=== PATIENT | male | born 1970 | race Caucasian/White ===

== ENCOUNTER → 2018-01-01 | Outpatient (CLI) | payer BC ==
--- NOTE | 2018-01-01 08:53 | US ---
EXAMINATION TYPE: US kidneys/renal and bladder DATE OF EXAM: 01/01/2018 COMPARISON: NONE CLINICAL HISTORY: I10 HTN,N183 CHR KIDNEY DISEASE,Q612 POLYCYSTIC KIDNEY. EXAM MEASUREMENTS: Right Kidney: 20.2 x 12.0 x 12.8 cm Left Kidney: 21.6 x 11.7 x 12.1 cm Right Kidney: polycystic kidney, enlarged . A single image (image 3) there is a questionable solid a ppearing mass measuring 3.8 x 3.3 cm seen on this single image only. CT is recommended for further ch aracterization. Left Kidney: polycystic kidney, enlarged Bladder: not well distended Bilateral Jets seen: only right jet seen There is no evidence for hydronephrosis at this point in time. No nephrolithiasis is seen. The urina ry bladder is anechoic. The prostate gland is incidentally noted to be enlarged measuring 5.1 cm in t ransverse dimension. IMPRESSION: 1. Questionable 3.8 cm solid right renal mass seen on a single image only. Abdominal CT is recommende d for further characterization. 2. Findings compatible with polycystic kidney disease without gross hydronephrosis. 3. Suboptimal evaluation of the incompletely distended urinary bladder. 4. Incidental note of an enlarged prostate gland.
== END | disposition home or self-care (01) ==
LOC: RADUSWWP 08:10
PROVIDERS: ATTEND Family Medicine
DX: N32.89 Other specified disorders of bladder (principal); N40.0 Benign prostatic hyperplasia without lower urinary tract symptoms; I12.9 Hypertensive chronic kidney disease with stage 1 through stage 4 chronic kidney disease, or unspecified chronic kidney disease; N18.3 Chronic kidney disease, stage 3 (moderate)
CPT/HCPCS: 76770

== ENCOUNTER → 2018-06-25 | Outpatient (CLI) | payer BC ==
--- NOTE | 2018-06-25 13:41 | US ---
EXAMINATION TYPE: US abdomen comp/pelvis limited DATE OF EXAM: 06/25/2018 COMPARISON: NONE CLINICAL HISTORY: R19.04 Left lower quadrant abdominal swelling.... Patient states h/o polycystic kid lola disease, known hernia near umbilicus, no other symptoms EXAM MEASUREMENTS: Liver Length: 18.6 cm Gallbladder Wall: 0.3 cm CBD: 0.3 cm Spleen: 13.3 cm Right Kidney: 23.5 x 11.7 x 12.3 cm Left Kidney: 23.3 x 11.8 x 11.5 cm Pancreas: not seen due to bowel gas Liver: intercostal imaging due to enlarged renal displacing liver high in ribcage, slightly enlarged , cystic areas seen, largest = 1.4cm in right posterior lobe Gallbladder: wnl CBD: wnl Spleen: enlarged Right Kidney: grossly enlarged with multiple cystic areas seen, measured solid appearing lesion that was noted previously on superior pole = 3.4cm, stable Left Kidney: grossly enlarged with multiple cystic areas seen. No appreciable renal tissue present. Upper IVC: wnl Abd Aorta: limited views appear wnl Bladder: wnl Bilateral Jets Seen yes Scanned supraumbilical region at palpable and previous site of hernia per patient: small defect withi n abdominal sheath appears to produce a 1.7cm protrusion that did not enlarge with valsalva. Possible fat containing hernia. Patient is no pain at site and states he has had this area for 1 year. IMPRESSION: There may be a subtle supraumbilical anterior abdominal wall hernia, CT scan could be con firmatory.
== END | disposition home or self-care (01) ==
LOC: RADUSWWP 06:55
PROVIDERS: ATTEND Family Medicine
DX: Q61.2 Polycystic kidney, adult type (principal); N18.3 Chronic kidney disease, stage 3 (moderate)
CPT/HCPCS: 76700; 76857

== ENCOUNTER 2018-09-09 02:54 | Inpatient (IN) | payer BC ==
[2018-09-09] MEDS ORDERED: MORPHINE SULFATE 4 MG/ML SYRINGE IV STA (03:28)
[2018-09-09] MEDS ORDERED: SODIUM CHLORIDE 0.9% 1,000 ML IV STA (03:28)
--- NOTE | 2018-09-09 03:31 | ED ---
General Adult HPI - General Chief complaint: Abdominal Pain Stated complaint: kidney stone Time Seen by Provider: 09/09/18 03:10 Source: patient, RN notes reviewed, old records reviewed Mode of arrival: ambulatory Limitations: no limitations - History of Present Illness Initial comments: 47-year-old male history of kidney stones and polycystic kidney disease resents for evaluation of left flank pain. Patient states he's had pain for the past week, this did resolve at one point and then has returned over the past 3 days and has remained constant. Denies hematuria or dysuria. Denies fever or chills. He has had some nausea with no significant vomiting. No abdominal pain. Patient states symptoms are consistent with previous kidney stones. Patient also has chronic kidney disease. - Related Data Allergies Allergy/AdvReac Type Severity Reaction Status Date / Time Penicillins Allergy Unknown Verified 09/09/18 03:13 Childhood Review of Systems ROS Statement: Those systems with pertinent positive or pertinent negative responses have been documented in the HPI. ROS Other: All systems not noted in ROS Statement are negative. Past Medical History Past Medical History: Hypertension Additional Past Medical History / Comment(s): Kidney stones, polycystic kidneys History of Any Multi-Drug Resistant Organisms: None Reported Past Surgical History: Hernia Repair Past Psychological History: Depression Smoking Status: Former smoker Past Alcohol Use History: Rare Past Drug Use History: None Reported General Exam Limitations: no limitations General appearance: alert, in no apparent distress Eye exam: Present: normal appearance, PERRL ENT exam: Present: normal exam Neck exam: Present: normal inspection. Absent: tenderness, meningismus Respiratory exam: Present: normal lung sounds bilaterally. Absent: respiratory distress, wheezes Cardiovascular Exam: Present: regular rate, normal rhythm GI/Abdominal exam: Present: soft. Absent: distended, tenderness, guarding Extremities exam: Present: normal inspection, normal capillary refill. Absent: pedal edema Back exam: Present: normal inspection. Absent: CVA tenderness (R), CVA tenderness (L) Neurological exam: Present: alert, oriented X3, CN II-XII intact. Absent: motor sensory deficit Psychiatric exam: Present: normal affect, normal mood Skin exam: Present: warm, dry, intact. Absent: cyanosis, diaphoretic Course Vital Signs 09/09/18 03:10 Temperature 98.2 F Pulse Rate 74 Respiratory 18 Rate Blood Pressure 117/78 O2 Sat by Pulse 98 Oximetry Medical Decision Making - Medical Decision Making 47-year-old male presenting with left flank pain, concern for kidney stone. Patient has history of polycystic kidney disease and chronic renal insufficiency. Workup in the emergency department reveals creatinine 4.0 which is increased from recent baseline 2.5. He has hematuria with 23 red blood cells in the urine. Normal CBC, stable hemoglobin. CT shows bilateral polycystic kidneys with multiple hypodense cysts. No obstructing kidney stone. He does have bilateral nephrolithiasis. Given the ongoing pain and worsening kidney function, he will be admitted for pain control, IV hydration. Nephrology placed on consult. - Lab Data Result diagrams: 09/09/18 03:25 09/09/18 03:25 Lab Results 09/09/18 09/09/18 09/09/18 Range/Units 03:25 03:25 03:39 WBC 8.4 (3.8-10.6) k/uL RBC 4.68 (4.30-5.90) m/uL Hgb 14.8 (13.0-17.5) gm/dL Hct 44.9 (39.0-53.0) % MCV 95.9 (80.0-100.0) fL MCH 31.7 (25.0-35.0) pg MCHC 33.1 (31.0-37.0) g/dL RDW 12.4 (11.5-15.5) % Plt Count 182 (150-450) k/uL Neutrophils % 78 % Lymphocytes % 12 % Monocytes % 6 % Eosinophils % 2 % Basophils % 1 % Neutrophils # 6.6 (1.3-7.7) k/uL Lymphocytes # 1.0 (1.0-4.8) k/uL Monocytes # 0.5 (0-1.0) k/uL Eosinophils # 0.2 (0-0.7) k/uL Basophils # 0.0 (0-0.2) k/uL Sodium 138 (137-145) mmol/L Potassium 4.5 (3.5-5.1) mmol/L Chloride 108 H (98-107) mmol/L Carbon Dioxide 21 L (22-30) mmol/L Anion Gap 9 mmol/L BUN 53 H (9-20) mg/dL Creatinine 4.05 H (0.66-1.25) mg/dL Est GFR (CKD-EPI)AfAm 19 (>60 ml/min/1.73 sqM) Est GFR (CKD-EPI)NonAf 16 (>60 ml/min/1.73 sqM) Glucose 113 H (74-99) mg/dL Calcium 9.4 (8.4-10.2) mg/dL Total Bilirubin 0.9 (0.2-1.3) mg/dL AST 15 L (17-59) U/L ALT 15 L (21-72) U/L Alkaline Phosphatase 56 (38-126) U/L Total Protein 6.9 (6.3-8.2) g/dL Albumin 4.0 (3.5-5.0) g/dL Urine Color Light Yellow Urine Appearance Clear (Clear) Urine pH 5.0 (5.0-8.0) Ur Specific [place] 1.010 (1.001-1.035) Urine Protein Negative (Negative) Urine Glucose (UA) Negative (Negative) Urine Ketones Negative (Negative) Urine Blood Moderate H (Negative) Urine Nitrite Negative (Negative) Urine Bilirubin Negative (Negative) Urine Urobilinogen <2.0 (<2.0) mg/dL Ur Leukocyte Esterase Trace H (Negative) Urine RBC 23 H (0-5) /hpf Urine WBC 3 (0-5) /hpf Urine Mucus Rare H (None) /hpf Disposition Clinical Impression: Polycystic kidney disease, Acute on chronic renal failure Disposition: ADMITTED IP TO THIS [facility] Condition: Stable Is patient prescribed a controlled substance at d/c from ED?: No Referrals: Pop Quiles DO [Primary Care Provider] - 1-2 days Decision to Admit Reason: Admit from EC Decision Date: 09/02/18 Decision Time: 04:44
[2018-09-09 03:38] LABS: Basophils % (A) 1 %; Eosinophils # (A) 0.2 k/uL (0-0.7); Eosinophils % (A) 2 %; HCT 44.9 % (39.0-53.0); HGB 14.8 gm/dL (13.0-17.5); Lymphocytes % (A) 12 %; MCH 31.7 pg (25.0-35.0); MCHC 33.1 g/dL (31.0-37.0); MCV 95.9 fL (80.0-100.0); Mean Platelet Volume 7.4; Monocytes # (A) 0.5 k/uL (0-1.0); Monocytes % (A) 6 %; Neutrophils # (A) 6.6 k/uL (1.3-7.7); Neutrophils % (A) 78 %; Platelet Count 182 k/uL (150-450); RBC 4.68 m/uL (4.30-5.90); RDW 12.4 % (11.5-15.5); WBC 8.4 k/uL (3.8-10.6)
[2018-09-09 03:47] LABS: Calcium 9.4 mg/dL (8.4-10.2); Potassium 4.5 mmol/L (3.5-5.1); Total Bilirubin 0.9 mg/dL (0.2-1.3); Total Protein 6.9 g/dL (6.3-8.2)
[2018-09-09 04:00] LABS: Appearance,Urine Clear (Clear); Bilirubin,Urine Negative (Negative); Blood,Urine Moderate (Negative); Color,Urine Light Yellow; Glucose,Urine (UA) Negative (Negative); Ketones,Urine Negative (Negative); Leukocyte Esterase,Urine Trace (Negative); Mucus,Urine Rare /hpf; Nitrite,Urine Negative (Negative); Protein,Urine Negative (Negative); RBC,Urine 23 /hpf (0-5); Urobilinogen,Urine <2.0 mg/dL (<2.0); WBC,Urine 3 /hpf (0-5)
--- NOTE | 2018-09-09 04:19 | XR ---
EXAM: XR Abdomen, 2 Views CLINICAL HISTORY: ITS.REASON XR Reason: abdominal pain TECHNIQUE: Frontal upright views of the abdomen/pelvis. COMPARISON: CT abdomen and pelvis performed concurrently. Abdominal ultrasounds dated 06/25/18 and 01/01/18 FINDINGS: Intraperitoneal space: No free air. Gastrointestinal tract: Moderate fecal load. No dilation. Bones/joints: Unremarkable. IMPRESSION: Moderate fecal load.
--- NOTE | 2018-09-09 04:27 | CT ---
EXAM: CT Abdomen and Pelvis Without Intravenous Contrast CLINICAL HISTORY: ITS.REASON CT Reason: abdominal pain TECHNIQUE: Axial computed tomography images of the abdomen and pelvis without intravenous contrast. CTDI is 8.8 mGy and DLP is 542.5 mGy-cm. This CT exam was performed using one or more of the following dose reduction techniques: automated exposure control, adjustment of the mA and/or kV according to patient size, and/or use of iterative reconstruction technique. Coronal and sagittal reformatted images were created and reviewed. COMPARISON: Radiograph performed concurrently. Abdominal US dated 06/25/18 and Renal US dated 01/01/18 FINDINGS: Lung bases: Unremarkable. No mass. No consolidation. Mediastinum: Small to moderate-sized hiatal hernia. ABDOMEN: Liver: Multiple hepatic hypodense lesions are seen measuring up to 14. 4 mm which may represent cysts. Gallbladder and bile ducts: Unremarkable. No calcified stones. No ductal dilation. Pancreas: Unremarkable. No ductal dilation. Spleen: Splenomegaly. Adrenals: Unremarkable. No mass. Kidneys and ureters: Bilateral polycystic kidneys are once again seen. Some hyperdense cysts are seen bilaterally. The largest hyperdense lesion measures up to 3.8 cm on the right. The largest hyperdense lesion seen on the left measures up to 3.2 cm. Right intrarenal calculi seen measuring up to 4.2 mm. Left intrarenal calculi measuring up to 6.1 mm. No hydronephrosis. Stomach and bowel: Unremarkable. No obstruction. No mucosal thickening. PELVIS: Appendix: No findings to suggest acute appendicitis. Bladder: Unremarkable. No stones. Reproductive: Unremarkable as visualized. ABDOMEN and PELVIS: Intraperitoneal space: Unremarkable. No free air. No significant fluid collection. Bones/joints: Levoconvex scoliosis with multilevel degenerative changes of the spine. No acute fracture. No dislocation. Soft tissues: Left fat-containing inguinal hernia. Vasculature: Unremarkable. No abdominal aortic aneurysm. Lymph nodes: Unremarkable. No enlarged lymph nodes. IMPRESSION: 1. Small to moderate-sized hiatal hernia. 2. Splenomegaly. 3. Multiple hepatic hypodense lesions are seen measuring up to 14.4 mm which may represent cysts. 4. Bilateral polycystic kidneys are once again seen. Some hyperdense cysts are seen bilaterally. The largest hyperdense lesion measures up to 3.8 cm on the right. The largest hyperdense lesion seen on the left measures up to 3.2 cm. Right intrarenal calculi seen measuring up to 4.2 mm. Left intrarenal calculi measuring up to 6.1 mm. No hydronephrosis. Dedicated pre-and postcontrast imaging review performed on routine basis to evaluate for any suspicious cystic lesions on a routine nonemergent basis. 5. Left fat-containing inguinal hernia.
[2018-09-09] MEDS ORDERED: MORPHINE SULFATE 4 MG/ML SYRINGE IVP STA (04:40)
[2018-09-09] MEDS ORDERED: NALOXONE 0.4 MG/ML 1 ML VIAL IV PRN (04:40)
[2018-09-09] MEDS: SODIUM CHLORIDE 0.9% 1,000 ML IV SCH ×3 (05:06→22:06)
[2018-09-09] MEDS: MORPHINE SULFATE 4 MG/ML SYRINGE IV PRN ×2 (08:00→12:16)
[2018-09-09] MEDS ORDERED: ACETAMINOPHEN TAB 500 MG TAB PO PRN (12:59)
[2018-09-09] MEDS ORDERED: ALPRAZolam 0.25 MG TAB PO PRN (12:59)
[2018-09-09] MEDS ORDERED: cloNIDine HCL 0.1 MG TAB PO PRN (12:59)
[2018-09-09] MEDS ORDERED: HYDROcodone/APAP 5-325MG 1 EACH TAB PO PRN (16:50)
[2018-09-09] MEDS ORDERED: TEMAZEPAM 15 MG CAP PO PRN (16:50)
[2018-09-09] MEDS: HYDROmorphone 1 MG/ML 1 ML SYRINGE IVP PRN ×2 (17:16→22:06)
[2018-09-09] MEDS: CARVEDILOL 12.5 MG TAB PO SCH (17:17)
[2018-09-09] MEDS: ACETAMINOPHEN IV (For NPO) 1,000 MG in EMPTY BAG 1 BAG IVPB SCH ×2 (17:17→23:25)
[2018-09-09] MEDS: PANTOPRAZOLE 40 MG/10 ML VIAL IVP SCH ×2 (17:23→20:20)
--- NOTE | 2018-09-09 18:15 | HP ---
HISTORY AND PHYSICAL CHIEF COMPLAINT: Abdominal pain as well as vomiting. HISTORY OF PRESENT ILLNESS: This 47-year-old gentleman with a past medical history of multiple medical problems, including acute polycystic kidney disease, hypertension, history of kidney stones, history of hernia repair, history of depression, being followed by Dr. Quiles in the outpatient setting, was complaining of significant left flank pain which was radiating to the front of the abdomen. The patient also had some vomiting. The pain was going on for 3 days, with the patient becoming more concerned. He came to [facility] and was admitted for further evaluation and treatment. There is no history of any hematuria. Patient did not notice any passage of stones. CT scan of the abdomen showed multiple findings, including small- to moderate-sized hiatal hernia, splenomegaly, multiple hepatic hypodense lesions as well as bilateral polycystic kidneys with multiple findings with possible nephrolithiasis also. The patient also had left fat-containing inguinal hernia. Patient was admitted for further evaluation and treatment. There is no history of any fever, rigor or chills. No history of headache, loss of consciousness, seizures at this time. PAST HISTORY: 1. Hypertension. 2. Nephrolithiasis. 3. Polycystic kidneys. 4. History of depression. 5. History of nicotine dependence. HOME MEDICATIONS: 1. Vitamin D3 1000 daily. 2. Fish oil 1 p.o. daily. 3. Tylenol 1000 mg t.i.d. p.r.n. 4. Catapres 0.1 mg daily p.r.n. 5. Wellbutrin SR 150 mg p.o. b.i.d. 6. Xanax 0.25 daily p.r.n. 7. Cozaar 25 mg p.o. daily. 8. HydroDIURIL 50 mg p.o. daily. 9. Coreg 25 mg p.o. b.i.d. ALLERGIES: PENICILLIN. FAMILY HISTORY: History of renal disease and polycystic kidney disease in multiple members of the family with renal failure. Mother had surgery for polycystic kidney. SOCIAL HISTORY: Previous history of smoking. No current smoking or alcohol intake. REVIEW OF SYSTEMS: ENT: No diminished hearing. No diminished vision. CARDIOVASCULAR SYSTEM: No angina, palpitations. RESPIRATORY SYSTEM: No cough, hemoptysis. GI: As mentioned earlier. : As mentioned earlier. NERVOUS SYSTEM: No numbness, weakness. ALLERGY/IMMUNOLOGY: No asthma, hayfever. MUSCULOSKELETAL: As mentioned earlier. HEMATOLOGY/ONCOLOGY: No history of anemia. ENDOCRINE: No history of diabetes, hypothyroidism. CONSTITUTIONAL: As mentioned earlier. DERMATOLOGY: Negative. RHEUMATOLOGY: Negative. PSYCHIATRY: As mentioned earlier. PHYSICAL EXAMINATION: Patient alert and oriented x3. Pulse 69, blood pressure 143/90, respiration 16, temperature 97.5, pulse ox 97% on room air. HEENT: Conjunctivae normal. Oral mucosa moist. NECK: No jugular venous distention. No carotid bruit. No lymph node enlargement. CARDIOVASCULAR SYSTEM: S1, S2 muffled. RESPIRATORY SYSTEM: Breath sounds diminished at the bases. No rhonchi. No crackles. ABDOMEN: Soft. Minimal distention on the left side. Severe tenderness in the flank area on the right upper quadrant also present. NERVOUS SYSTEM: Higher functions as mentioned earlier. Moves all 4 limbs. No focal motor or sensory deficit. LYMPHATIC: No lymph node palpable in neck or axillae. SKIN: No ulcer, rash, bleeding. LABS: WBC 8.4, hemoglobin 14.9. Sodium 138, potassium 4.5, creatinine 4.05. ASSESSMENT: 1. Severe left flank pain with possible acute polycystic kidneys, for evaluation. 2. Rule out left ureteral lithiasis. 3. Acute on chronic renal failure, possibly prerenal, multifactorial. 4. Hypertension. 5. History of nephrolithiasis. 6. Family history of polycystic kidney surgery. 7. History of depression. 8. History of nicotine dependence. RECOMMENDATIONS AND DISCUSSION: In this 47-year-old gentleman who presented with multiple complex medical issues, we will monitor the patient closely, continue the current management, continue symptomatic treatment. We will optimize the analgesic treatment in addition to intravenous therapy or p.o. medications, and IV Tylenol also may be advised. Avoid NSAIDs. Monitor creatinine closely. IV fluids. Nephrology and urology consultations if the symptoms do not subside. Otherwise, continue to monitor. Overall prognosis is guarded because of the multiple complex medical issues. Further recommendations to follow. MMODL / IJN: [id number] /
--- NOTE | 2018-09-09 19:25 | P.GSCN ---
History of Present Illness Consult date: 09/09/18 History of present illness: This is a pleasant 47-year-old gentleman with autosomal dominant polycystic kidney disease. He is known of this problem for 25 years. He has a brother who has it in renal failure. His mother also had. The patient normally is followed by Dr. Quiles. He has seen the subgrade roller operator here in [place] the past. The patient's creatinine normally runs in the low 2 range. He has a known history of kidney stones. 10 years ago he passed a stone. 2 years ago he passed several little stones. Approximately 2 weeks ago he passed a stone and then a second one last weekend. He had severe left flank pain atypical of his kidney stone passage and therefore presented to the hospital and was admitted for further evaluation. He had a computed tomography scan identifying bilateral congenital polycystic kidneys. There are some small stones in each kidney 6 mm in the left and 4 mm on the right as well as some pin tip size stones. It is impossible to say whether it is any hydronephrosis. There is no obvious hydroureter. There is a calcification down near the left ureteral vesicle junction but this appears to be vascular in origin. The patient does not have any lower urinary tract symptoms also that would be consistent with a stone in that region. His creatinine has bumped to 4. He is having no lower urinary tract symptoms at this point in time. Review of Systems - Constitutional Reports as per HPI - Gastrointestinal Reports abdominal pain - Genitourinary Reports as per HPI Past Medical History Past Medical History: Hypertension Additional Past Medical History / Comment(s): Kidney stones, polycystic kidneys History of Any Multi-Drug Resistant Organisms: None Reported Past Surgical History: Hernia Repair Additional Past Surgical History / Comment(s): Lasix surgery Past Anesthesia/Blood Transfusion Reactions: No Reported Reaction Past Psychological History: Depression Smoking Status: Former smoker Past Alcohol Use History: Rare Past Drug Use History: None Reported - Past Family History Mother Family Medical History: Renal Disease Additional Family Medical History / Comment(s): kidney issues Father Additional Family Medical History / Comment(s): stroke just Medications and Allergies Home Medications Medication Instructions Recorded Confirmed Type ALPRAZolam [Xanax] 0.25 mg PO DAILY PRN 09/09/18 09/09/18 History Acetaminophen Tab [Tylenol Tab] 1,000 mg PO TID PRN 09/09/18 09/09/18 History Carvedilol 25 mg PO BID 09/09/18 09/09/18 History Cholecalciferol [Vitamin D3] 1,000 unit PO DAILY 09/09/18 09/09/18 History Hydrochlorothiazide [Hydrodiuril] 50 mg PO DAILY 09/09/18 09/09/18 History Losartan Potassium [Cozaar] 25 mg PO DAILY 09/09/18 09/09/18 History [place]-3 Fatty Acids/Fish Oil [Fish 1 cap PO DAILY 09/09/18 09/09/18 History Oil 1,000 mg Softgel] buPROPion HCL [Wellbutrin SR] 150 mg PO BID 09/09/18 09/09/18 History cloNIDine HCL [Catapres] 0.1 mg PO DAILY PRN 09/09/18 09/09/18 History Allergies Allergy/AdvReac Type Severity Reaction Status Date / Time Penicillins Allergy Unknown Verified 09/09/18 07:36 Childhood Surgical - Exam Vital Signs Temp Pulse Resp BP Pulse Ox 98.2 F 74 18 117/78 98 09/09/18 03:10 09/09/18 03:10 09/09/18 03:10 09/09/18 03:10 09/09/18 03:10 - General well developed, well nourished, no distress - Eyes PERRL - ENT no hearing loss - Neck no masses - Respiratory normal expansion, normal respiratory effort - Cardiovascular Rhythm: regular - Abdomen He is tender in the left upper quadrant as well as left flank to palpation Abdomen: soft, tender - Genitourinary normal penis with no external lesions, testicles present - Integumentary no rash, no growths - Neurologic normal coordination, normal sensation - Musculoskeletal normal posture - Psychiatric oriented to time, oriented to person, oriented to place, speech is normal, memory intact Results - Labs 09/09/18 03:25 09/09/18 03:25 Abnormal Lab Results - Last 24 Hours (Table) 09/09/18 09/09/18 Range/Units 03:25 03:39 Chloride 108 H (98-107) mmol/L Carbon Dioxide 21 L (22-30) mmol/L BUN 53 H (9-20) mg/dL Creatinine 4.05 H (0.66-1.25) mg/dL Glucose 113 H (74-99) mg/dL AST 15 L (17-59) U/L ALT 15 L (21-72) U/L Urine Blood Moderate H (Negative) Ur Leukocyte Esterase Trace H (Negative) Urine RBC 23 H (0-5) /hpf Urine Mucus Rare H (None) /hpf Diabetes panel 09/09/18 Range/Units 03:25 Sodium 138 (137-145) mmol/L Potassium 4.5 (3.5-5.1) mmol/L Chloride 108 H (98-107) mmol/L Carbon Dioxide 21 L (22-30) mmol/L BUN 53 H (9-20) mg/dL Creatinine 4.05 H (0.66-1.25) mg/dL Glucose 113 H (74-99) mg/dL Calcium 9.4 (8.4-10.2) mg/dL AST 15 L (17-59) U/L ALT 15 L (21-72) U/L Alkaline Phosphatase 56 (38-126) U/L Total Protein 6.9 (6.3-8.2) g/dL Albumin 4.0 (3.5-5.0) g/dL Calcium panel 09/09/18 Range/Units 03:25 Calcium 9.4 (8.4-10.2) mg/dL Albumin 4.0 (3.5-5.0) g/dL Pituitary panel 09/09/18 Range/Units 03:25 Sodium 138 (137-145) mmol/L Potassium 4.5 (3.5-5.1) mmol/L Chloride 108 H (98-107) mmol/L Carbon Dioxide 21 L (22-30) mmol/L BUN 53 H (9-20) mg/dL Creatinine 4.05 H (0.66-1.25) mg/dL Glucose 113 H (74-99) mg/dL Calcium 9.4 (8.4-10.2) mg/dL Adrenal panel 09/09/18 Range/Units 03:25 Sodium 138 (137-145) mmol/L Potassium 4.5 (3.5-5.1) mmol/L Chloride 108 H (98-107) mmol/L Carbon Dioxide 21 L (22-30) mmol/L BUN 53 H (9-20) mg/dL Creatinine 4.05 H (0.66-1.25) mg/dL Glucose 113 H (74-99) mg/dL Calcium 9.4 (8.4-10.2) mg/dL Total Bilirubin 0.9 (0.2-1.3) mg/dL AST 15 L (17-59) U/L ALT 15 L (21-72) U/L Alkaline Phosphatase 56 (38-126) U/L Total Protein 6.9 (6.3-8.2) g/dL Albumin 4.0 (3.5-5.0) g/dL - Imaging CT scan - abdomen: report reviewed, image reviewed CT scan - pelvis: report reviewed, image reviewed Assessment and Plan Assessment: Impression: Autosomal dominant polycystic kidney disease with chronic renal insufficiency. Bilateral renal stones. Recent passage of ureteral stones left. Left flank pain probable cyst inflammation or bleeding Recommendations: Based on his clinical history I suspect that one of the left cyst had become inflamed and were has bled. This is probably what is explaining his mild rise in his creatinine. At this point time upon review the computed tomography scan I do not see any urologic or surgical intervention required. We will continue to follow this to make sure his pain subsides and that nothing urologic will be required
[2018-09-09] MEDS: METOCLOPRAMIDE 5 MG/ML 2 ML VIAL IVP PRN (20:20)
[2018-09-09] MEDS: buPROPion SR 150 MG TABLET.ER PO SCH (20:20)
--- NOTE | 2018-09-09 22:41 | CONS ---
CONSULTATION REASON FOR CONSULT: Renal failure. HISTORY OF PRESENT ILLNESS: Patient is a 47-year-old male with history of underlying chronic kidney disease secondary to polycystic kidney disease. The patient was admitted to the hospital with abdominal pain, which occurred 3 times prior to admission. The patient stated his initial abdominal pain, which woke him up from sleep about 3 days ago subsided after he took Flomax. He stated this pain was similar to the pain that he had when he his renal colic previously. The patient had another episode of renal colic which again subsided. However, the 3rd time his pain was different. It was sharp and it continued to worsen and therefore patient came into the hospital. He denied seeing any obvious blood in his urine. His serum creatinine was 4.0 today. Previous creatinine was 2.3 and 2.5 mg/dL in January and June of 2018. The patient denied use of any nonsteroidal anti- inflammatory agents. He had a CT scan of the abdomen done which showed bilateral polycystic kidneys and hyperdense cysts bilaterally. There was right intrarenal calculi about 4.2 mm and left intrarenal calculi about 6.1 mm. No hydronephrosis was noted on both sides. The UA was not suggestive of significant urinary tract infection. WBCs were only 3, hemoglobin was at 14.8 g/dL. PAST MEDICAL HISTORY: Significant for hypertension, polycystic kidneys, depression, nephrolithiasis. MEDICATIONS: Medications at home prior to admission included: Fish oil, Tylenol, clonidine, Xanax. Cozaar, HydroDIURIL, Coreg, vitamin D3. ALLERGIES: INCLUDE PENICILLIN WHICH CAUSES RASH. FAMILY HISTORY: Positive for polycystic kidneys. SOCIAL HISTORY: Positive for smoking. Patient is a former smoker. No history of drug abuse or alcohol abuse. REVIEW OF SYSTEMS: As per HPI. Other systems negative. EXAMINATION: Patient is currently comfortable, awake. He is alert, oriented x3. Blood pressure this morning was 141/88, heart rate 67 per minute. He is afebrile. Examination of the heart S1, S2. Examination of lungs bilateral breath sounds are heard. ABDOMEN: Soft. There is tenderness noted in the left upper quadrant. VICE PRESIDENT FIXED INCOME exam is grossly intact. LABS SHOW: Sodium 138, potassium 4.5, chloride 108, CO2 is 21, BUN 53, serum creatinine 4.05. UA shows WBCs 3, RBCs 23, no protein. There is moderate blood noted. Hemoglobin 14.8. ASSESSMENT: 1. Acute kidney injury secondary to possibly prerenal state and intravascular volume depletion. Patient was on Cozaar and diuretics prior to admission. There may be a component of obstructive uropathy given his significant bilateral renal stones. However, there was no significant hydronephrosis noted on CT scan. I will also obtain an ultrasound of the kidneys. We will continue to hold off on the Cozaar as well as thiazide diuretics. Continue with aggressive IV hydration. 2. Bilateral nephrolithiasis. Urology will be consulted next number. 3. Abdominal pain initially secondary to renal colic and subsequently possibly related to bleeding in one of the cysts as the CT scan does show hyperdensity in some of the cysts. This suggests blood and at this time we need to continue with conservative treatment unless there is good hydration and pain control. 4. Hypertension. Blood pressure is controlled. 5. Chronic kidney disease NKF stage III approaching stage IV with serum creatinine recently at about 2.3-2.5 in January and June of 2018.. Patient will need more close outpatient followup. PLAN: Continue with IV fluids. Repeat labs in a.m. Hold off on Cozaar. Hold off on diuretics for now. We will check office records for workup for nephrolithiasis. Proceed with Urology consult. Thank you for this consultation. We will continue to follow the patient with you during his hospitalization. MMLUKEL / RAYMONDN: [id number] /
[2018-09-10] MEDS: ACETAMINOPHEN IV (For NPO) 1,000 MG in EMPTY BAG 1 BAG IVPB SCH ×2 (05:32→11:58)
[2018-09-10] MEDS: HYDROmorphone 1 MG/ML 1 ML SYRINGE IVP PRN ×2 (05:36→22:14)
[2018-09-10] MEDS: SODIUM CHLORIDE 0.9% 1,000 ML IV SCH ×3 (05:42→17:38)
[2018-09-10] MEDS: METOCLOPRAMIDE 5 MG/ML 2 ML VIAL IVP PRN (07:34)
[2018-09-10] MEDS ORDERED: PANTOPRAZOLE 40 MG/10 ML VIAL IVP SCH (09:00)
[2018-09-10] MEDS ORDERED: NON-FORMULARY DRUG (Omega-3 Fatty Acids/Fish Oil [Fish Oil 1,000 Mg Softgel] 1 CAP) PO SCH (09:00)
[2018-09-10] MEDS: buPROPion SR 150 MG TABLET.ER PO SCH ×2 (09:10→22:12)
[2018-09-10] MEDS: CARVEDILOL 12.5 MG TAB PO SCH ×2 (09:10→17:37)
[2018-09-10] MEDS: CHOLECALCIFEROL 1,000 UNIT TAB PO SCH (09:10)
[2018-09-10] MEDS: PANTOPRAZOLE 40 MG/10 ML VIAL IVP SCH ×2 (09:10→22:12)
[2018-09-10 09:46] LABS: Basophils % (A) 1 %; Eosinophils # (A) 0.1 k/uL (0-0.7); Eosinophils % (A) 1 %; HCT 38.5 % (39.0-53.0); HGB 12.7 gm/dL (13.0-17.5); Lymphocytes # (A) 0.7 k/uL (1.0-4.8); Lymphocytes % (A) 10 %; MCH 31.6 pg (25.0-35.0); MCV 95.5 fL (80.0-100.0); Mean Platelet Volume 8.3; Monocytes # (A) 0.5 k/uL (0-1.0); Monocytes % (A) 6 %; Neutrophils % (A) 81 %; Platelet Count 150 k/uL (150-450); RBC 4.03 m/uL (4.30-5.90); RDW 12.2 % (11.5-15.5); WBC 7.4 k/uL (3.8-10.6)
[2018-09-10 10:03] LABS: Calcium 8.6 mg/dL (8.4-10.2); Potassium 4.2 mmol/L (3.5-5.1)
--- NOTE | 2018-09-10 19:00 | P.PN ---
Subjective Progress Note Date: 09/10/18 Progress note being dictated for Dr. Gentile. Interval history: Is a 47-year-old gentleman admitted with severe left flank pain, possible acute polycystic kidneys, acute on chronic renal failure and multiple other medical issues. Evaluated by urology, recommendations noted including no urologic or surgical intervention required at this time. They suspect inflammation with bleeding of one of the left cysts, as well as recent passage of stone. Evaluated by nephrology, recommendations noted. Maintained on IV fluid hydration with improvement in renal function, creatinine down to 3.77. Left flank pain significantly improved. Denies chest pain, palpitations or increasing shortness of breath. Denies painful urination or hematuria. Afebrile. Objective - Vital Signs Vital signs: Vital Signs Temp 98.1 F 09/10/18 14:51 Pulse 64 09/10/18 14:51 Resp 17 09/10/18 14:51 BP 112/67 09/10/18 14:51 Pulse Ox 97 09/10/18 14:51 Intake & Output 09/09/18 09/10/18 09/10/18 18:59 06:59 18:59 Intake Total 1150 1625.0 2540 Output Total 2 Balance 1150 1623.0 2540 Intake: Intake, IV Titration 800 1625.0 1100 Amount ACETAMINOPHEN IV (For NPO 100 ) 1,000 mg In Empty Bag 1 bag @ 400 mls/hr IVPB Q6HR VERN Rx#:[id number] Sodium Chloride 0.9% 1, 800 1625.0 1000 000 ml @ 125 mls/hr IV . Q8H VERN Rx#:[id number] Oral 350 1440 Output: Urine 2 Other: # Voids 2 - Exam PHYSICAL EXAM: VITAL SIGNS: As above GENERAL: Sitting up in bed, no acute distress HEENT: Conjunctivae normal. eyes normal. Oral mucosa moist NECK: No JVD. No thyroid enlargement. No LNs CARDIOVASCULAR: S1, S2 muffled. No murmur RESPIRATION: Breath sounds diminished in the bases. No rhonchi or crackles. ABDOMEN: Soft, minimal tenderness left posterior flank area. No guarding. no masses palpable.Bowel sounds heard. LEGS: No edema. no swelling PSYCHIATRY: Alert and oriented -3, mood and affect normal. NERVOUS SYSTEM: Cranial N 2-12 grossly normal. Moves all 4 limbs. Diffuse weakness No focal deficits. Skin: no ulcer no rash Lymphatic system. No LN neck axilla or groin. - Labs CBC & Chem 7: 09/10/18 08:13 09/10/18 08:13 Labs: Abnormal Lab Results - Last 24 Hours (Table) 09/10/18 09/10/18 Range/Units 08:13 08:13 RBC 4.03 L (4.30-5.90) m/uL Hgb 12.7 L (13.0-17.5) gm/dL Hct 38.5 L (39.0-53.0) % Lymphocytes # 0.7 L (1.0-4.8) k/uL BUN 45 H (9-20) mg/dL Creatinine 3.77 H (0.66-1.25) mg/dL Glucose 117 H (74-99) mg/dL Microbiology - Last 24 Hours (Table) 09/09/18 Unknown Urine Culture - Preliminary Urine,Clean Catch Assessment and Plan Assessment: -Severe left flank pain with possible acute polycystic kidneys, evaluation in progress. Bilateral renal stones with Probable cyst inflammation or bleeding as per urology -Acute on chronic renal failure, possibly prerenal, multifactorial, improving -Hypertension -History of nephrolithiasis -Family history of polycystic kidney surgery -History of depression -History of nicotine dependence Plan: Continue on current medication regime ,monitoring and symptomatic treatment. Maintain IV fluid hydration. Avoid nephrotoxic agents. Follow closely with nephrology. Urology recommendations appreciated. Close monitoring of renal function, with repeat labs ordered for a.m. close monitoring of pain. Further recommendations to follow. The impression and plan of care has been dictated as directed. : I performed a history and examination of this patient, discussed the same with the dictator. I agree with the dictator's note ,documented as a scribe. Any additional findings or plans will be noted.
--- NOTE | 2018-09-10 20:46 | PN ---
PROGRESS NOTE Patient is seen for followup for acute kidney injury on top of chronic kidney disease. He presented to the hospital with severe abdominal pain. He does have nephrolithiasis as well as polycystic kidneys and it appears that he has bled in one of his cysts. Pain is much improved today. Patient has been evaluated by Urology. There is no clear- cut evidence of hydronephrosis, and at this time there is no plan for intervention. Patient is maintained on IV fluids. On examination, blood pressure was 122/79, heart rate 73 per minute. He is afebrile. EXAMINATION OF THE HEART: S1, S2. EXAMINATION OF LUNGS: Bilateral breath sounds are heard. ABDOMEN: Soft, non-tender. Examination of lower extremities shows no significant edema. DIRECTOR OF COUNTERINTELLIGENCE exam is grossly intact. Labs show serum creatinine 3.7, sodium 137, potassium 4.2, hemoglobin 12.7 g/dL. ASSESSMENT: 1. Acute kidney injury associated with intravascular volume depletion, currently improved. Patient is maintained on IV fluids. 2. Bilateral nephrolithiasis. Patient may have passed a kidney stone prior to his admission. No plans for intervention at this time. 3. Chronic kidney disease secondary to polycystic kidney disease, NKF stage III, with recent worsening of renal function. Patient will be considered for tolvaptan for study for polycystic kidney disease. I will continue to hold off on the Cozaar for now. We will repeat labs in a.m. and possible discharge tomorrow. 4. Hypertension, currently stable. Hold off on the diuretics for now. PLAN: Continue IV fluids. Repeat labs in a.m. Possible discharge tomorrow. Consider for research with tolvaptan for polycystic kidney disease. This will be discussed as outpatient. MMODL / IJN: [id number] /
[2018-09-11] MEDS: HYDROmorphone 1 MG/ML 1 ML SYRINGE IVP PRN (02:39)
[2018-09-11] MEDS: SODIUM CHLORIDE 0.9% 1,000 ML IV SCH (05:09)
[2018-09-11] MEDS ORDERED: PANTOPRAZOLE 40 MG TABLET PO SCH (09:00)
--- NOTE | 2018-09-11 09:07 | P.PN ---
Subjective Progress Note Date: 09/11/18 The patient is in the hospital with left flank pain. He has autosomal dominant polycystic kidneys. He has small volume kidney stones. He recently passed stones. He is having left flank pain that is improved. The pain is probably due to ruptured cyst. The creatinine went to 4 but normally was in the low 2 range. It was 3.7 yesterday. At this point in time nothing urologic needs to be done. Objective - Vital Signs Vital signs: Vital Signs Temp 98.2 F 09/10/18 23:00 Pulse 80 09/10/18 23:00 Resp 17 09/10/18 23:00 BP 131/82 09/10/18 23:00 Pulse Ox 95 09/10/18 23:00 Intake & Output 09/10/18 09/11/18 09/11/18 18:59 06:59 18:59 Intake Total 2540 1480 Balance 2540 1480 Intake: Intake, IV Titration 1100 1000 Amount ACETAMINOPHEN IV (For NPO 100 ) 1,000 mg In Empty Bag 1 bag @ 400 mls/hr IVPB Q6HR VERN Rx#:[id number] Sodium Chloride 0.9% 1, 1000 1000 000 ml @ 125 mls/hr IV . Q8H VERN Rx#:[id number] Oral 1440 480 - Labs CBC & Chem 7: 09/10/18 08:13 09/10/18 08:13 Labs: Abnormal Lab Results - Last 24 Hours (Table) 09/10/18 09/10/18 Range/Units 08:13 08:13 RBC 4.03 L (4.30-5.90) m/uL Hgb 12.7 L (13.0-17.5) gm/dL Hct 38.5 L (39.0-53.0) % Lymphocytes # 0.7 L (1.0-4.8) k/uL BUN 45 H (9-20) mg/dL Creatinine 3.77 H (0.66-1.25) mg/dL Glucose 117 H (74-99) mg/dL Microbiology - Last 24 Hours (Table) 09/09/18 Unknown Urine Culture - Final Urine,Clean Catch 09/09/18 17:32 Blood Culture - Preliminary Blood No Growth after 24 hours
[2018-09-11 09:46] VITALS: BP 155/90; PULSE 74; RESP 16; TEMP 98.3
[2018-09-11 10:00] LABS: Basophils % (A) 0 %; Eosinophils # (A) 0.1 k/uL (0-0.7); Eosinophils % (A) 2 %; HCT 36.3 % (39.0-53.0); HGB 12.5 gm/dL (13.0-17.5); Lymphocytes # (A) 0.6 k/uL (1.0-4.8); Lymphocytes % (A) 10 %; MCH 32.7 pg (25.0-35.0); MCHC 34.4 g/dL (31.0-37.0); Mean Platelet Volume 8.3; Monocytes # (A) 0.3 k/uL (0-1.0); Monocytes % (A) 6 %; Neutrophils # (A) 4.7 k/uL (1.3-7.7); Neutrophils % (A) 81 %; Platelet Count 148 k/uL (150-450); RBC 3.82 m/uL (4.30-5.90); RDW 12.1 % (11.5-15.5); WBC 5.8 k/uL (3.8-10.6)
[2018-09-11 10:05] LABS: Calcium 8.5 mg/dL (8.4-10.2)
[2018-09-11] MEDS: CHOLECALCIFEROL 1,000 UNIT TAB PO SCH (10:10)
[2018-09-11] MEDS: CARVEDILOL 12.5 MG TAB PO SCH (10:10)
[2018-09-11] MEDS: buPROPion SR 150 MG TABLET.ER PO SCH (10:12)
--- NOTE | 2018-09-11 20:50 | DS ---
DISCHARGE SUMMARY DATE OF SERVICE: 09/11/2018 FINAL DIAGNOSES: 1. Severe left flank pain, possibly secondary to cyst inflammation or bleeding. 2. Autosomal dominant polycystic kidney disease. 3. Acute on chronic renal failure, possibly prerenal, multifactorial, improved. 4. Hypertension. 5. History of nephrolithiasis. 6. Family history of polycystic kidney disease. 7. History of depression. 8. History of nicotine dependence. DISCHARGE CONDITION: The patient is being discharged home with guarded prognosis. HISTORY OF PRESENT ILLNESS: This is a 47-year-old gentleman with past medical history of multiple medical problems, admitted with significant left flank pain and features of polycystic kidney with possible inflammation bleeding into the cyst, treated symptomatically. Patient improved significantly. The patient's creatinine stabilized at around 3.85 at this time. His baseline creatinine was around 2.5 to 3. On exam, vitals are stable. Cardiovascular, S1 and S2 present. Abdomen soft, nontender. Nervous system, no focal deficits. DISCHARGE INSTRUCTIONS: 1. Cardiac diet. 2. Activity limited. FOLLOWUP: 1. Follow up with Dr. Serrato in 2 to 3 days. 2. Followup with Dr. Quiles in 2 to 3 days in the outpatient clinic. 3. Followup with Neurology p.r.n. MEDICATIONS: 1. Tylenol 1000 mg t.i.d. p.r.n. 2. Xanax 0.5 daily p.r.n. 3. Wellbutrin XR 150 mg b.i.d. 4. Coreg 25 mg b.i.d. 5. Vitamin D3, 1000 daily. 6. Gregory-3 fatty acids 1 p.o. daily. MMLUKEL / RAYMONDN: [id number] /
--- NOTE | 2018-09-11 21:56 | PN ---
PROGRESS NOTE Patient is seen for followup for acute kidney injury on top of chronic kidney disease. He was seen this morning. Patient stated his abdominal pain has improved significantly. He has been voiding well. PHYSICAL EXAMINATION: This morning blood pressure was 155/90. Patient is afebrile, heart rate 74 per minute. Examination of the heart S1, S2. Examination of lungs bilateral breath sounds are heard. ABDOMEN: Soft. Minimal tenderness in the left upper quadrant area and mid quadrant. Examination of lower extremities shows no evidence of edema. LAB: Show serum creatinine 3.85 from today. Sodium 137, potassium 4.0. ASSESSMENT: 1. Acute kidney injury associated with some degree of volume depletion as well as bleeding in the polycystic kidney disease. The patient is status post IV fluids. He can be discharged from nephrology standpoint. He will need to follow up in about 1 week's time. 2. Nephrolithiasis with recent passage of kidney stone. Patient will follow up as outpatient with Urology. 3. Chronic kidney disease, polycystic kidney disease and NKF stage III, with recent worsening in renal function. The patient will follow up as outpatient for initiation of tolvaptan as a research medicine. MMODL / IJN: [id number] /
== END 2018-09-11 13:51 | disposition home or self-care (01) | DRG 699 ==
LOC: EC 02:54 → 4SSUR 04:44
PROVIDERS: ADMIT Hospitalist; ATTEND Hospitalist
DX: Q61.2 Polycystic kidney, adult type (principal); N13.2 Hydronephrosis with renal and ureteral calculous obstruction; N17.9 Acute kidney failure, unspecified; N18.3 Chronic kidney disease, stage 3 (moderate); I12.9 Hypertensive chronic kidney disease with stage 1 through stage 4 chronic kidney disease, or unspecified chronic kidney disease; E86.9 Volume depletion, unspecified; K40.90 Unilateral inguinal hernia, without obstruction or gangrene, not specified as recurrent; K44.9 Diaphragmatic hernia without obstruction or gangrene; F32.9 Major depressive disorder, single episode, unspecified; R16.1 Splenomegaly, not elsewhere classified; Z79.899 Other long term (current) drug therapy; Z87.891 Personal history of nicotine dependence; Z87.442 Personal history of urinary calculi; Z88.0 Allergy status to penicillin; Z82.71 Family history of polycystic kidney; Z82.3 Family history of stroke
CPT/HCPCS: 36415; 74018; 74176; 80048; 80053; 81001; 85025; 87040; 87086; 96361; 96374; 96376; 99285

== ENCOUNTER → 2019-09-05 | Outpatient (CLI) | payer BC ==
--- NOTE | 2019-09-05 09:04 | US ---
EXAMINATION TYPE: US kidneys/renal and bladder DATE OF EXAM: 09/05/2019 COMPARISON: US 06/25/2018 and 01/01/[address] 09/09/2018 CLINICAL HISTORY: N18.4 CKD. CKD. Polycystic kidney disease. EXAM MEASUREMENTS: Right Kidney: 24.5 x 14.0 x 13.1 cm Left Kidney: 24.2 x 11.0 x 12.0 cm Right Kidney: Enlarged, polycystic as seen on prior Left Kidney: Enlarged, polycystic as seen on prior, there are 2 renal calculi mid= 0.6 and 0.5 cm Bladder: wnl Bilateral Jets seen: No There is no evidence for hydronephrosis at this point in time. The urinary bladder is anechoic. Bi lateral ureteral jets are not seen. IMPRESSION: 1. Enlarged kidneys with innumerable cysts again compatible with polycystic kidney disease. The previ ously seen solid right upper pole mass on the prior exam of 06/25/2018 and 01/01/2018 is not well visual ized. On the prior CT of 09/09/2018 as was questioned to represent a hyperdense cyst. 2. 2 nonobstructing subcentimeter left renal calculi.
== END | disposition home or self-care (01) ==
LOC: RADUSWWP 08:12
PROVIDERS: ATTEND Internal Medicine Nephrology
DX: N28.81 Hypertrophy of kidney (principal); N28.1 Cyst of kidney, acquired; N20.0 Calculus of kidney
CPT/HCPCS: 76770

== ENCOUNTER 2021-02-14 07:59 | Observation (INO) | payer BC ==
[2021-02-14] MEDS ORDERED: LORazepam 2 MG/ML INJ IV STA (08:27)
[2021-02-14] MEDS ORDERED: SODIUM CHLORIDE 0.9% 500 ML 500 ML IV STA (08:27)
[2021-02-14 08:30] LABS: Glucose,Whole Blood 108 mg/dL (75-99)
--- NOTE | 2021-02-14 08:44 | ED ---
General Adult HPI - General Chief complaint: Neuro Symptoms/Deficit Stated complaint: arm tingling/SOB Time Seen by Provider: 02/14/21 08:00 Source: patient, RN notes reviewed, old records reviewed Mode of arrival: wheelchair Limitations: no limitations - History of Present Illness Initial comments: This is a 50-year-old male who presents to the emergency department with a past medical history significant for high blood pressure and high cholesterol. Patient comes in today stating he went to bed last night at 11:00 any was fine when he woke up at 3:00 this morning he had left arm weakness he states his water sander is much weaker than it normally is. Patient states he also has tingling in his left fingertips. Patient denies any headache patient denies any visual disturbance patient denies any slurred speech or facial droop. Patient states he feels like both his legs are normal as well even though he did not appreciate until we tested him. Patient denies any recent fever chills or cough. Patient states lately he's been feeling more short of breath especially with exertion. patient denies nausea vomiting diarrhea. Patient states she worries that she is the bad panic attack as he has quite a bit of anxiety. - Related Data Home Medications Medication Instructions Recorded Confirmed ALPRAZolam [Xanax] 0.25 mg PO HS PRN 09/09/18 02/14/21 buPROPion HCL [Wellbutrin SR] 150 mg PO BID 09/09/18 02/14/21 carvediloL [Carvedilol] 25 mg PO BID 09/09/18 02/14/21 Cholecalciferol [Vitamin D3 (25 50 mcg PO DAILY 02/14/21 02/14/21 Mcg = 1000 Iu)] Ezetimibe [Zetia] 10 mg PO DAILY 02/14/21 02/14/21 Febuxostat 40 mg PO DAILY 02/14/21 02/14/21 Ferrous Sulfate [Feosol] 325 mg PO DAILY 02/14/21 02/14/21 Furosemide [Lasix] 40 mg PO DAILY PRN 02/14/21 02/14/21 Losartan Potassium [Cozaar] 25 mg PO DAILY 02/14/21 02/14/21 amLODIPine [Norvasc] 10 mg PO DAILY 02/14/21 02/14/21 cloNIDine HCL [Catapres] 0.2 mg PO BID 02/14/21 02/14/21 Allergies Allergy/AdvReac Type Severity Reaction Status Date / Time Penicillins Allergy Unknown Verified 02/14/21 08:58 Childhood Review of Systems ROS Statement: Those systems with pertinent positive or pertinent negative responses have been documented in the HPI. ROS Other: All systems not noted in ROS Statement are negative. Past Medical History Past Medical History: Hyperlipidemia, Hypertension Additional Past Medical History / Comment(s): Kidney stones, polycystic kidneys History of Any Multi-Drug Resistant Organisms: None Reported Past Surgical History: Hernia Repair Additional Past Surgical History / Comment(s): Lasix surgery Past Anesthesia/Blood Transfusion Reactions: No Reported Reaction Past Psychological History: Depression Smoking Status: Never smoker Past Alcohol Use History: Rare Past Drug Use History: None Reported - Past Family History Mother Family Medical History: Renal Disease Additional Family Medical History / Comment(s): kidney issues Father Additional Family Medical History / Comment(s): stroke just General Exam - General Exam Comments Initial Comments: GENERAL: Patient is well-developed and well-nourished. Patient is nontoxic and well- hydrated and is in mild distress. ENT: Neck is soft and supple. No significant lymphadenopathy is noted. Oropharynx i s clear. Moist mucous membranes. Neck has full range of motion without eliciting any pain. There is no thyroid enlargement and no masses were felt. EYES: The sclera were anicteric and conjunctiva were pink and moist. Extraocular movements were intact and pupils were equal round and reactive to light. Eyelids were unremarkable. PULMONARY: Unlabored respirations. Good breath sounds bilaterally. No audible rales rhonchi or wheezing was noted. CARDIOVASCULAR: There is a regular rate and rhythm without any murmurs gallops or rubs. ABDOMEN: Soft and nontender with normal bowel sounds. SKIN: Skin is clear with no lesions or rashes and otherwise unremarkable. NEUROLOGIC: Patient is alert and oriented x3. Cranial nerves II through XII are grossly intact. Patient's water sander on the left is 3 out of 5 compared to the right. Patient has difficulty lifting his leg very far off of the bed he gets about 3-4 inches but he lifts them both off equally however. MUSCULOSKELETAL: Normal extremities with adequate strength and full range of motion. No lower extremity swelling or edema. No calf tenderness. LYMPHATICS: No significant lymphadenopathy is noted PSYCHIATRIC: Normal psychiatric evaluation. Limitations: no limitations Course Vital Signs 02/14/21 02/14/21 02/14/21 08:01 08:10 08:52 Temperature 97.5 F L Pulse Rate 60 60 58 L Respiratory 18 18 18 Rate Blood Pressure 153/104 146/102 135/90 O2 Sat by Pulse 99 99 99 Oximetry 02/14/21 02/14/21 09:00 10:00 Temperature Pulse Rate 53 L 55 L Respiratory 18 18 Rate Blood Pressure 131/90 149/101 O2 Sat by Pulse 98 98 Oximetry Medical Decision Making - Medical Decision Making EKG shows sinus bradycardia 57 bpm [place] interval is 154 QRS is 90 QT intervals 426 QTC is 414. Patient's EKG shows no ST segment elevation or depression. I called a code stroke on this patient because of the weakness in the left arm. Spoke with Dr. Casas twice. Patient's CT of the brain shows no acute normalities. Patient's EKG shows no acute abnormality. I spoke with Dr. Carlisle he agreed to admit the patient admitted the patient remaining orders. No aspirin was given because of the renal failure. - Lab Data Result diagrams: 02/14/21 08:27 02/14/21 08:27 Lab Results 02/14/21 02/14/21 02/14/21 Range/Units 08:27 08:27 08:27 WBC 5.9 (3.8-10.6) k/uL RBC 4.32 (4.30-5.90) m/uL Hgb 13.3 (13.0-17.5) gm/dL Hct 40.3 (39.0-53.0) % MCV 93.5 (80.0-100.0) fL MCH 30.8 (25.0-35.0) pg MCHC 33.0 (31.0-37.0) g/dL RDW 12.7 (11.5-15.5) % Plt Count 228 (150-450) k/uL MPV 8.2 Neutrophils % 63 % Lymphocytes % 21 % Monocytes % 8 % Eosinophils % 4 % Basophils % 1 % Neutrophils # 3.7 (1.3-7.7) k/uL Lymphocytes # 1.3 (1.0-4.8) k/uL Monocytes # 0.5 (0-1.0) k/uL Eosinophils # 0.2 (0-0.7) k/uL Basophils # 0.1 (0-0.2) k/uL PT 10.3 (9.0-12.0) sec INR 1.0 (<1.2) APTT 26.3 (22.0-30.0) sec Sodium 141 (137-145) mmol/L Potassium 5.5 H (3.5-5.1) mmol/L Chloride 112 H (98-107) mmol/L Carbon Dioxide 17 L (22-30) mmol/L Anion Gap 12 mmol/L BUN 53 H (9-20) mg/dL Creatinine 4.74 H (0.66-1.25) mg/dL Est GFR (CKD-EPI)AfAm 15 (>60 ml/min/1.73 sqM) Est GFR (CKD-EPI)NonAf 13 (>60 ml/min/1.73 sqM) Glucose 104 H (74-99) mg/dL POC Glucose (mg/dL) (75-99) mg/dL POC Glu Jig And Fixture Repairer ID Calcium 9.6 (8.4-10.2) mg/dL Total Bilirubin 0.6 (0.2-1.3) mg/dL AST 19 (17-59) U/L ALT 13 (4-49) U/L Alkaline Phosphatase 63 (38-126) U/L Troponin I (0.000-0.034) ng/mL Total Protein 7.2 (6.3-8.2) g/dL Albumin 4.3 (3.5-5.0) g/dL TSH 4.210 (0.465-4.680) mIU/L Free T4 1.23 (0.78-2.19) ng/dL 02/14/21 02/14/21 Range/Units 08:27 08:29 WBC (3.8-10.6) k/uL RBC (4.30-5.90) m/uL Hgb (13.0-17.5) gm/dL Hct (39.0-53.0) % MCV (80.0-100.0) fL MCH (25.0-35.0) pg MCHC (31.0-37.0) g/dL RDW (11.5-15.5) % Plt Count (150-450) k/uL MPV Neutrophils % % Lymphocytes % % Monocytes % % Eosinophils % % Basophils % % Neutrophils # (1.3-7.7) k/uL Lymphocytes # (1.0-4.8) k/uL Monocytes # (0-1.0) k/uL Eosinophils # (0-0.7) k/uL Basophils # (0-0.2) k/uL PT (9.0-12.0) sec INR (<1.2) APTT (22.0-30.0) sec Sodium (137-145) mmol/L Potassium (3.5-5.1) mmol/L Chloride (98-107) mmol/L Carbon Dioxide (22-30) mmol/L Anion Gap mmol/L BUN (9-20) mg/dL Creatinine (0.66-1.25) mg/dL Est GFR (CKD-EPI)AfAm (>60 ml/min/1.73 sqM) Est GFR (CKD-EPI)NonAf (>60 ml/min/1.73 sqM) Glucose (74-99) mg/dL POC Glucose (mg/dL) 108 H (75-99) mg/dL POC Glu Jig And Fixture Repairer ID Ayush Durant Calcium (8.4-10.2) mg/dL Total Bilirubin (0.2-1.3) mg/dL AST (17-59) U/L ALT (4-49) U/L Alkaline Phosphatase (38-126) U/L Troponin I <0.012 (0.000-0.034) ng/mL Total Protein (6.3-8.2) g/dL Albumin (3.5-5.0) g/dL TSH (0.465-4.680) mIU/L Free T4 (0.78-2.19) ng/dL Critical Care Time Critical Care Time: Yes Total Critical Care Time: 35 Disposition Clinical Impression: Renal failure (ARF), acute on chronic, TIA (transient ischemic attack) Disposition: ADMITTED IP TO THIS HOSP Is patient prescribed a controlled substance at d/c from ED?: No Referrals: Pop Quiles DO [Primary Care Provider] - 1-2 days Time of Disposition: 10:13
[2021-02-14 08:46] LABS: Basophils # (A) 0.1 k/uL (0-0.2); Basophils % (A) 1 %; Eosinophils # (A) 0.2 k/uL (0-0.7); Eosinophils % (A) 4 %; HCT 40.3 % (39.0-53.0); HGB 13.3 gm/dL (13.0-17.5); Lymphocytes # (A) 1.3 k/uL (1.0-4.8); Lymphocytes % (A) 21 %; MCH 30.8 pg (25.0-35.0); MCV 93.5 fL (80.0-100.0); Mean Platelet Volume 8.2; Monocytes # (A) 0.5 k/uL (0-1.0); Monocytes % (A) 8 %; Neutrophils # (A) 3.7 k/uL (1.3-7.7); Neutrophils % (A) 63 %; Platelet Count 228 k/uL (150-450); RBC 4.32 m/uL (4.30-5.90); RDW 12.7 % (11.5-15.5); WBC 5.9 k/uL (3.8-10.6)
--- NOTE | 2021-02-14 08:53 | CT ---
EXAMINATION TYPE: CT brain wo con for TPA DATE OF EXAM: 02/14/2021 COMPARISON: None HISTORY: Neuro deficit, left arm numbness CT DLP: 1160.8 mGycm Automated exposure control for dose reduction was used. Helical imaging through the brain. FINDINGS: There is cortical atrophy. Periventricular white matter shows patchy low attenuation. Low-attenuation present in the choroidal fissure region may represent cystic change, is indeterminate. Calvarium is intact. There is some inflammatory change present in the sphenoid sinus on the right, ethmoid air subhash ls IMPRESSION: AGE-RELATED CHANGES OF ATROPHY AND PROBABLE CHRONIC SMALL VESSEL ISCHEMIC CHANGE, BRAIN MRI COULD BE PERFORMED FOR ADDITIONAL EVALUATION. Difficult to exclude subacute infarct. Sinus disease.
[2021-02-14 08:57] LABS: Partial Thromboplastin Time 26.3 sec (22.0-30.0); Prothrombin Time 10.3 sec (9.0-12.0)
--- NOTE | 2021-02-14 09:01 | XR ---
EXAMINATION TYPE: XR chest 2V DATE OF EXAM: 02/14/2021 COMPARISON: Chest x-ray August 08, 2015 HISTORY: Left arm pain and tingling. TECHNIQUE: Frontal and lateral views of the chest are obtained. FINDINGS: There is no focal air space opacity, pleural effusion, or pneumothorax seen. The cardiac silhouette size is within normal limits. The osseous structures are intact. Overlying EKG leads cur rent study. IMPRESSION: No acute cardiopulmonary process.
[2021-02-14 09:09] LABS: Albumin 4.3 g/dL (3.5-5.0); Calcium 9.6 mg/dL (8.4-10.2); Potassium 5.5 mmol/L (3.5-5.1); Total Bilirubin 0.6 mg/dL (0.2-1.3); Total Protein 7.2 g/dL (6.3-8.2)
--- NOTE | 2021-02-14 09:20 | CT ---
EXAMINATION TYPE: CT angio head neck DATE OF EXAM: 02/14/2021 HISTORY: Neuro Deficit acute onset, left arm numbness. COMPARISON: None. CT DLP: 596.2 mGycm. Automated Exposure Control for Dose Reduction was Utilized. TECHNIQUE: CTA scan of the head and neck are performed with IV Contrast, patient injected with 65 mL of Isovue 370, axial images are obtained, coronal and sagittal reformatted images are reviewed. Thre e-D reconstructed images are created on an independent workstation and reviewed. FINDINGS: Carotid/Vascular Structures: Normal three-vessel origin from the aortic arch. Normal origin right com mon carotid artery from right brachiocephalic artery. No significant plaque or stenosis. No significa nt plaque or stenosis in the common or internal carotid arteries bilaterally including at the level o f the bilateral carotid bulbs . Patent bilateral external carotid arteries without significant plaque or stenosis. There is dominant right vertebral artery filling the basilar artery. Left vertebral artery is smaller in caliber and then distally not as well seen becoming hypoplastic or occluded. Hypoplastic bilatera l posterior communicating arteries. No significant focal stenosis or aneurysmal change in the posteri or circulation. Patent anterior communicating artery. No significant focal stenosis or aneurysm. Other: No incidental suspicious abnormality. IMPRESSION: No significant stenosis in common or internal carotid arteries bilaterally. No significa nt stenosis or aneurysm at the level of [place].
[2021-02-14 09:25] LABS: T4, Free (Free Thyroxine) 1.23 ng/dL (0.78-2.19)
[2021-02-14] MEDS: ASPIRIN 81 MG PO SCH (16:24)
--- NOTE | 2021-02-14 16:53 | P.CNNES ---
History of Present Illness Consult date: 02/14/21 Requesting physician: Carson Mendez Reason for Consult: TIA History of Present Illness: Patient is a 50-year-old male, who woke up at 3 AM this morning with numbness and tingling of the left arm, mainly from elbow down, with main numbness in the left hand. It almost felt as if he slept on the left, although he did not. He had gone to bed at 11 PM the night before in usual state of health. After he woke up at 3 AM, he could not go back to sleep. He stayed awake, finally at 7:30 AM left for work. He was having difficulty squeezing with the left hand, felt numb. Instead of going to the work, he came to the ER, and arrived at 7:59 AM. Patient's vitals on arrival blood pressure 153/104, pulse rate 60, temperature 97.5. CBC is normal. PT/PTT normal. Sodium 141, potassium 5.5, BUN 53, creatinine 4.74, normal hepatic panel, normal TFTs. Lilly virus negative. CT head showed age-related changes of atrophy and probable chronic small vessel ischemic change. Brain MRI could be performed for additional evaluation. Difficult to exclude subacute infarct. CTA of head and neck showed no significant stenosis in, nor internal carotid arteries bilaterally. No significant stenosis or aneurysm at the level of [place]. EKG shows sinus bradycardia. Chest x-ray showed no acute cardio primary process. Patient denies diabetes. He has hypertension. He does not take any antiplatelet medication. He has smoked 1 pack per day for 7-8 years, quit 25 years ago. He used to drink, but has not drank for years. He has chronic renal insufficiency. Patient has polycystic kidney disease. He is advanced renal failure. Patient has recently placed himself on transplant list. Patient has family history of polycystic kidney disease in his mother but has positive family history of strokes in both his father and mother. Review of Systems Denies any fever or chills. Denies any headache. Patient complains of anxiety and panic attacks. Patient lately has been feeling short winded. He has stage IV renal disease. He has near syncopal symptoms, when he stands up hester will pass out. Denies any fever or chills. Denies any slurred speech facial droop, visual disturbance or headaches. Past Medical History Past Medical History: Hyperlipidemia, Hypertension, Renal Disease Additional Past Medical History / Comment(s): Polycystic kidney disease, CKD, nephrolithiasis, anemia, occasional bilateral ankle edema History of Any Multi-Drug Resistant Organisms: None Reported Past Surgical History: Hernia Repair Additional Past Surgical History / Comment(s): Umbilical hernia, hernia repair as an infant, bilateral lasik eye surgery for vision correction. Past Anesthesia/Blood Transfusion Reactions: No Reported Reaction, Motion Sickness Smoking Status: Former smoker - Past Family History Mother Family Medical History: Renal Disease Additional Family Medical History / Comment(s): Polycystic kidney disease Father Family Medical History: CVA/TIA Additional Family Medical History / Comment(s): Father is . He had a CVA. Medications and Allergies Home Medications Medication Instructions Recorded Confirmed Type ALPRAZolam [Xanax] 0.25 mg PO HS PRN 09/09/18 02/14/21 History buPROPion HCL [Wellbutrin SR] 150 mg PO BID 09/09/18 02/14/21 History carvediloL [Carvedilol] 25 mg PO BID 09/09/18 02/14/21 History Cholecalciferol [Vitamin D3 (25 50 mcg PO DAILY 02/14/21 02/14/21 History Mcg = 1000 Iu)] Ezetimibe [Zetia] 10 mg PO DAILY 02/14/21 02/14/21 History Febuxostat 40 mg PO DAILY 02/14/21 02/14/21 History Ferrous Sulfate [Feosol] 325 mg PO DAILY 02/14/21 02/14/21 History Furosemide [Lasix] 40 mg PO DAILY PRN 02/14/21 02/14/21 History Losartan Potassium [Cozaar] 25 mg PO DAILY 02/14/21 02/14/21 History amLODIPine [Norvasc] 10 mg PO DAILY 02/14/21 02/14/21 History cloNIDine HCL [Catapres] 0.2 mg PO BID 02/14/21 02/14/21 History Allergies Allergy/AdvReac Type Severity Reaction Status Date / Time Penicillins Allergy Unknown Verified 02/14/21 08:58 Childhood Physical Examination - Vital Signs Vital Signs: Vital Signs Temp Pulse Resp BP Pulse Ox 02/14/21 12:38 55 L 18 127/97 100 02/14/21 11:12 52 L 18 130/98 100 02/14/21 10:14 55 L 18 149/106 99 02/14/21 10:00 55 L 18 149/101 98 02/14/21 09:00 53 L 18 131/90 98 02/14/21 08:52 58 L 18 135/90 99 02/14/21 08:10 60 18 146/102 99 02/14/21 08:01 97.5 F L 60 18 153/104 99 Intake and Output 02/13/21 02/14/21 02/14/21 22:59 06:59 14:59 Other: Weight 104.326 kg Patient is a middle aged male, in no acute distress. Patient is alert awake oriented to time place and person. Speech and language functions are normal. Attention, concentration and fund of knowledge is adequate. On cranial examination, pupils are round and reacting to light, visual hester are full on confrontation with no neglect, extraocular muscles are intact with no nystagmus. Face is symmetric, tongue protrudes to the midline. Palatal elevation and sensation normal, hearing and shoulder shrug normal, facial sensation normal. Shoulder shrug normal. On muscle strength testing, there is no pronator drift and the strength is normal in arms and legs distally and proximally. Deep tendon reflexes are 2+ in bilateral upper limbs and biceps and brachioradialis, 1+ at the knees, and knees, plantars downgoing. Sensory to touch is equal with no neglect. Cerebellar function showed no ataxia for [id number] testing. No dysdiadochokinesia. Tone and bulk of muscles normal. Gait normal. On general examination, there is no carotid bruit or murmur, S1-S2 audible. Abdomen is soft nontender. Chest is clear. Peripheral pulses are present. No edema. Results - Laboratory Findings CBC and BMP: 02/14/21 08:27 02/14/21 08:27 Abnormal Lab Findings: Abnormal Labs 02/14/21 02/14/21 08:27 08:29 Potassium 5.5 H Chloride 112 H Carbon Dioxide 17 L BUN 53 H Creatinine 4.74 H Glucose 104 H POC Glucose (mg/dL) 108 H Assessment and Plan Assessment: * Probable TIA manifesting with transient numbness of the left arm. Symptoms have mostly resolved. Patient's current NIH stroke scale is 0. * Hypertension * Hyperlipidemia * Polycystic kidney disease, with advanced renal insufficiency. * Family history of strokes TIA. Plan: * Patient will be started on dual antiplatelet medication for 21 days. Thereafter Plavix can be discontinued and maintain on aspirin 81 mg. Discussed with nephrology, Dr Serrato, who cleared for above regimen. * Fasting a.m. lipid panel, hemoglobin A1c * Patient's lipid panel from 01/04/2021 shows total cholesterol 266, LDL 193, HDL 42 and triglycerides 155. Agree with Lipitor 40 mg. * 2-D echo with bubble study. * MRI of the brain to evaluate for acute stroke. * We will follow.
[2021-02-14] MEDS ORDERED: ALPRAZolam 0.25 MG TAB PO PRN (17:13)
[2021-02-14] MEDS: CLOPIDOGREL 75 MG TAB PO SCH (17:17)
--- NOTE | 2021-02-14 17:18 | P.HPIM ---
History of Present Illness Was a 50-year-old male came in with complaints of numbness in the medial aspect of the left the hand along with numbness in the whole hand without any chest pain patient denied any fever chills patient denied any significant weakness patient felt HEENT he is weak in both lower legs limbs but that has good strength in both lower limbs. Patient had a sore CT of the head which showed age-related atrophy and chronic small vessel disease. CT angios the head and neck did not show any significant abnormality. EKG mild sinus bradycardia. Patient does have history of chronic polycystic kidney disease with baseline creatinine around the 3.8. to present creatinine is 4.74 with a bicarbonate of 17. Patient unfortunately already received contrast. Patient also has hepatic cirrhosis as a part of polycystic kidney disease. Patient had positive family history of strokes in both father and mother. Review of Systems REVIEW OF SYSTEMS: CONSTITUTIONAL: No fever, no malaise, no fatigue. HEENT: No recent visual problems or hearing problems. Denied any sore throat. CARDIOVASCULAR: No chest pain, orthopnea, PND, no palpitations, no syncope. PULMONARY: No shortness of breath, no cough, no hemoptysis. GASTROINTESTINAL: No diarrhea, no nausea, no vomiting, no abdominal pain. NEUROLOGICAL: No headaches, no weakness HEMATOLOGICAL: Denies any bleeding or petechiae. GENITOURINARY: Denies any burning micturition, frequency, or urgency. MUSCULOSKELETAL/RHEUMATOLOGICAL: Denies any joint pain, swelling, or any muscle pain. ENDOCRINE: Denies any polyuria or polydipsia. The rest of the 14-point review of systems is negative. Past Medical History Past Medical History: Hyperlipidemia, Hypertension, Renal Disease Additional Past Medical History / Comment(s): Polycystic kidney disease, CKD, nephrolithiasis, anemia, occasional bilateral ankle edema History of Any Multi-Drug Resistant Organisms: None Reported Past Surgical History: Hernia Repair Additional Past Surgical History / Comment(s): Umbilical hernia, hernia repair as an , bilateral lasik eye surgery for vision correction. Past Anesthesia/Blood Transfusion Reactions: No Reported Reaction, Motion Sickness Smoking Status: Former smoker - Past Family History Mother Family Medical History: Renal Disease Additional Family Medical History / Comment(s): Polycystic kidney disease Father Family Medical History: CVA/TIA Additional Family Medical History / Comment(s): Father is . He had a CVA. Medications and Allergies Home Medications Medication Instructions Recorded Confirmed Type ALPRAZolam [Xanax] 0.25 mg PO HS PRN 09/09/18 02/14/21 History buPROPion HCL [Wellbutrin SR] 150 mg PO BID 09/09/18 02/14/21 History carvediloL [Carvedilol] 25 mg PO BID 09/09/18 02/14/21 History Cholecalciferol [Vitamin D3 (25 50 mcg PO DAILY 02/14/21 02/14/21 History Mcg = 1000 Iu)] Ezetimibe [Zetia] 10 mg PO DAILY 02/14/21 02/14/21 History Febuxostat 40 mg PO DAILY 02/14/21 02/14/21 History Ferrous Sulfate [Feosol] 325 mg PO DAILY 02/14/21 02/14/21 History Furosemide [Lasix] 40 mg PO DAILY PRN 02/14/21 02/14/21 History Losartan Potassium [Cozaar] 25 mg PO DAILY 02/14/21 02/14/21 History amLODIPine [Norvasc] 10 mg PO DAILY 02/14/21 02/14/21 History cloNIDine HCL [Catapres] 0.2 mg PO BID 02/14/21 02/14/21 History Allergies Allergy/AdvReac Type Severity Reaction Status Date / Time Penicillins Allergy Unknown Verified 02/14/21 08:58 Childhood Physical Exam Vitals: Vital Signs Temp Pulse Pulse Resp BP BP Pulse Ox 02/14/21 16:00 97.4 F L 56 L 16 121/81 99 02/14/21 12:38 55 L 18 127/97 100 02/14/21 11:12 52 L 18 130/98 100 02/14/21 10:14 55 L 18 149/106 99 02/14/21 10:00 55 L 18 149/101 98 02/14/21 09:00 53 L 18 131/90 98 02/14/21 08:52 58 L 18 135/90 99 02/14/21 08:10 60 18 146/102 99 02/14/21 08:01 97.5 F L 60 18 153/104 99 Intake and Output 02/14/21 02/14/21 02/14/21 06:59 14:59 22:59 Other: Weight 104.326 kg PHYSICAL EXAMINATION: GENERAL: The patient is alert and oriented x3, not in any acute distress. Well developed, well nourished. HEENT: Pupils are round and equally reacting to light. EOMI. No scleral icterus. No conjunctival pallor. Normocephalic, atraumatic. No pharyngeal erythema. No thyromegaly. CARDIOVASCULAR: S1 and S2 present. No murmurs, rubs, or gallops. PULMONARY: Chest is clear to auscultation, no wheezing or crackles. ABDOMEN: Soft, nontender, nondistended, normoactive bowel sounds. No palpable organomegaly. MUSCULOSKELETAL: No joint swelling or deformity. EXTREMITIES: No cyanosis, clubbing, or pedal edema. NEUROLOGICAL: Gross neurological examination did not reveal any focal deficits. SKIN: No rashes. Results CBC & Chem 7: 02/14/21 08:27 02/14/21 08:27 Labs: Abnormal Lab Results - Last 24 Hours (Table) 02/14/21 02/14/21 Range/Units 08:27 08:29 Potassium 5.5 H (3.5-5.1) mmol/L Chloride 112 H (98-107) mmol/L Carbon Dioxide 17 L (22-30) mmol/L BUN 53 H (9-20) mg/dL Creatinine 4.74 H (0.66-1.25) mg/dL Glucose 104 H (74-99) mg/dL POC Glucose (mg/dL) 108 H (75-99) mg/dL Thrombosis Risk Factor Assmnt - Choose All That Apply Any of the Below Risk Factors Present?: Yes Each Factor Represents 1 point: Age 41-60 years, Obesity (BMI >25) Other Risk Factors: No Other congenital or acquired thrombophilia - If yes, enter type in comment: No Thrombosis Risk Factor Assessment Total Risk Factor Score: 2 Thrombosis Risk Factor Assessment Level: Low Risk Assessment and Plan Plan: Possible transient ischemic attack related to transient numbness in the left arm: Patient was started on Plavix and aspirin Ambar light. panel hemoglobin A1c are being obtained. MRI had been ordered. Patient's symptoms completely resolved -Hypertension uncontrolled elevated blood pressures secondary to polycystic kidney disease patient will be resumed on his home regimen except for clonidine but if needed this will be started as well -Hyperlipidemia -polycystic kidney disease with stage V chronic kidney disease. Nephrology will be consulted Anion and non-anion gap metabolic acidosis secondary to renal failure -Hyperlipidemia -Depression -DVT prophylaxis early ambulation
[2021-02-14] MEDS: carvediloL 12.5 MG TAB PO SCH (18:57)
--- NOTE | 2021-02-14 19:16 | MR ---
MR brain without contrast HISTORY: Stroke, left arm numbness Multiplanar multisequence imaging through the brain, correlation to CT brain dated same date. There is no restricted diffusion. No hemorrhage or hydrocephalus. Corpus callosum, pituitary, cervica l medullary junction, cerebellopontine angles are within normal limits. There is cortical atrophy pre sent. Inflammatory change present in the sphenoid sinus, ethmoid air cells, frontal sinus, maxillary sinuses. There are normal vascular flow voids. Brain signal is essentially maintained, approximately 3 hyperintensities are present within the deep white matter on inversion recovery T2-weighted sequenc es of questionable clinical significance. 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 IMPRESSION: Mild sinus disease. No evident subacute infarct.
[2021-02-14] MEDS: buPROPion SR 150 MG TABLET.ER PO SCH (20:57)
[2021-02-15] MEDS: carvediloL 12.5 MG TAB PO SCH (06:53)
[2021-02-15 08:45] LABS: HGB 12.4 gm/dL (13.0-17.5); MCH 30.7 pg (25.0-35.0); MCHC 32.6 g/dL (31.0-37.0); MCV 94.4 fL (80.0-100.0); Mean Platelet Volume 8.2; Platelet Count 189 k/uL (150-450); RBC 4.02 m/uL (4.30-5.90); RDW 12.7 % (11.5-15.5); WBC 5.6 k/uL (3.8-10.6)
[2021-02-15] MEDS ORDERED: allopurinoL 100 MG TAB PO SCH (09:00)
[2021-02-15] MEDS ORDERED: amLODIPine 10 MG TAB PO SCH (09:00)
[2021-02-15] MEDS ORDERED: LOSARTAN 25 MG TAB PO SCH (09:00)
[2021-02-15] MEDS ORDERED: CHOLECALCIFEROL 25 MCG (1000 IU) TABLET PO SCH (09:00)
[2021-02-15] MEDS ORDERED: EZETIMIBE 10 MG TAB PO SCH (09:00)
[2021-02-15] MEDS ORDERED: FERROUS SULFATE 325 MG TAB PO SCH (09:00)
[2021-02-15] MEDS ORDERED: ATORVASTATIN 40 MG TAB PO SCH (09:00)
[2021-02-15 09:25] LABS: Calcium 9.2 mg/dL (8.4-10.2); Potassium 5.6 mmol/L (3.5-5.1)
[2021-02-15] MEDS: CLOPIDOGREL 75 MG TAB PO SCH (10:13)
[2021-02-15] MEDS: buPROPion SR 150 MG TABLET.ER PO SCH (10:13)
[2021-02-15] MEDS: ASPIRIN 81 MG PO SCH (10:13)
[2021-02-15 10:55] VITALS: RESP 18; TEMP 98
[2021-02-15] MEDS ORDERED: LACTATED RINGERS 1,000 ML IV SCH (11:15)
--- NOTE | 2021-02-15 12:00 | ECHOF ---
Referral Reason:Stroke TIA MEASUREMENTS -------- HEIGHT: 188.0 cm WEIGHT: 101.6 kg BP: 143/87 RVIDd: 2.9 cm (< 3.3) IVSd: 1.2 cm (0.6 - 1.1) LVIDd: 5.0 cm (3.9 - 5.3) LVPWd: 1.2 cm (0.6 - 1.1) IVSs: 1.6 cm LVIDs: 3.3 cm LVPWs: 1.8 cm LA Diam: 3.4 cm (2.7 - 3.8) Ao Diam: 3.4 cm (2.0 - 3.7) AV Cusp: 2.4 cm (1.5 - 2.6) MV EXCURSION: 22.560 mm (> 18.000) MV EF SLOPE: 106 mm/s (70 - 150) EPSS: 0.3 cm MV E Graeme: 0.97 m/s MV DecT: 248 ms MV A Graeme: 0.94 m/s MV E/A Ratio: 1.02 RAP: 5.00 mmHg RVSP: 25.72 mmHg FINDINGS -------- Resting bradycardia (HR<60bpm). This was a technically good study. The left ventricular size is normal. There is borderline concentric left ventricular hypertrophy. Overall left ventricular systolic function is normal with, an EF between 60 - 65 %. The right ventricle is normal in size. The right atrium is normal in size. Contrast study was performed with 2 iv injections of 8 ccs of agitated normal saline, at rest, and wi th cough. Negative saline bubble study Interatrial and interventricular septum intact. The aortic valve is trileaflet, and appears structurally normal. No aortic stenosis or regurgitation. The mitral valve is normal. Mild tricuspid regurgitation present. Right ventricular systolic pressure is normal at < 35 mmHg. There is no pulmonic regurgitation present. The aortic root size is normal. Normal inferior vena cava with normal inspiratory collapse consistent with estimated right atrial pre ssure of 5 mmHg. There is no pericardial effusion. CONCLUSIONS -------- 1. The left ventricular size is normal. 2. There is borderline concentric left ventricular hypertrophy. 3. Overall left ventricular systolic function is normal with, an EF between 60 - 65 %. 4. Contrast study was performed with 2 iv injections of 8 ccs of agitated normal saline, at rest, and with cough. 5. Negative saline bubble study 6. The aortic valve is trileaflet, and appears structurally normal. No aortic stenosis or regurgitati on. 7. Mild tricuspid regurgitation present. 8. There is no pulmonic regurgitation present. 9. There is no pericardial effusion. ARMORED MACHINE OPERATOR: Florinda Singleton RDCS
--- NOTE | 2021-02-15 13:30 | P.DS ---
Providers Date of admission: 02/14/21 10:13 Attending physician: Ana Paula Carlisle Consults: 02/14/21 10:14 Consult Physician Routine Consulting Provider: Robby Yun Consult Reason/Comments: TIA Do you want consulting provider notified?: Yes 02/14/21 17:12 Consult Physician Routine Consulting Provider: Carleen Serrato Consult Reason/Comments: Renal failure Do you want consulting provider notified?: Yes [facility]: [facility] Course: 50-year-old male came in with complaints of numbness in the medial aspect of the left the hand along with numbness in the whole hand without any chest pain patient denied any fever chills patient denied any significant weakness patient felt HEENT he is weak in both lower legs limbs but that has good strength in both lower limbs. Patient had a sore CT of the head which showed age-related atrophy and chronic small vessel disease. CT angios the head and neck did not show any significant abnormality. EKG mild sinus bradycardia. Patient does have history of chronic polycystic kidney disease with baseline creatinine around the 3.8. to present creatinine is 4.74 with a bicarbonate of 17. Patient unfortunately already received contrast. Patient also has hepatic cirrhosis as a part of polycystic kidney disease. Patient had positive family history of strokes in both father and mother. 02/15/2021 Patient doesn't have any symptoms of numbness in the left arm at this time patient had an MRI which did not show any stroke echocardiogram is within normal limits except for some concentric hypertrophy because of uncontrolled hypertension. Patient the potassium is still bit high losartan will be discontinued patient will be on low-sodium and low potassium diet patient will call closely follow with nephrology and patient will also need follow-up with the primary care physician and neurology. Patient's creatinine is 4.3 baseline appears to be on 3.5-3.8. Clonidine was discontinued patient is bit bradycardic, hydralazine was added. Continue here is a rest of home regimen. He is recommending Plavix for 21 days along with aspirin, Plavix can be discontinued after 21 days patient will continue aspirin indefinitely. Hemoglobin A1c is still pending PHYSICAL EXAMINATION: GENERAL: The patient is alert and oriented x3, not in any acute distress. Well developed, well nourished. HEENT: Pupils are round and equally reacting to light. EOMI. No scleral icterus. No conjunctival pallor. Normocephalic, atraumatic. No pharyngeal erythema. No thyromegaly. CARDIOVASCULAR: S1 and S2 present. No murmurs, rubs, or gallops. PULMONARY: Chest is clear to auscultation, no wheezing or crackles. ABDOMEN: Soft, nontender, nondistended, normoactive bowel sounds. No palpable organomegaly. MUSCULOSKELETAL: No joint swelling or deformity. EXTREMITIES: No cyanosis, clubbing, or pedal edema. NEUROLOGICAL: Gross neurological examination did not reveal any focal deficits. SKIN: No rashes. Assessment and Plan Plan: Possible transient ischemic attack which cannot be ruled out at this time all the workup as mentioned above is negative. Plan as mentioned above -Hypertension uncontrolled elevated blood pressures secondary to polycystic kidney disease , hypertension management as mentioned above -Hyperlipidemia -polycystic kidney disease with stage V chronic kidney disease. Nephrology evaluated the patient Anion and non-anion gap metabolic acidosis secondary to renal failure -Hyperlipidemia -Depression Plan - Discharge Summary Discharge Rx Participant: No New Discharge Prescriptions: New Aspirin 81 mg PO DAILY #30 chew hydrALAZINE HCL [Apresoline] 75 mg PO TID #90 tab Clopidogrel [Plavix] 75 mg PO DAILY #21 tab Continue buPROPion HCL [Wellbutrin SR] 150 mg PO BID ALPRAZolam [Xanax] 0.25 mg PO HS PRN PRN Reason: Anxiety carvediloL [Carvedilol] 25 mg PO BID amLODIPine [Norvasc] 10 mg PO DAILY Furosemide [Lasix] 40 mg PO DAILY PRN PRN Reason: Edema Ferrous Sulfate [Iron (65 MG Elemental)] 325 mg PO DAILY Cholecalciferol [Vitamin D3 (25 Mcg = 1000 Iu)] 50 mcg PO DAILY Febuxostat 40 mg PO DAILY Ezetimibe [Zetia] 10 mg PO DAILY Discontinued Losartan Potassium [Cozaar] 25 mg PO DAILY cloNIDine HCL [Catapres] 0.2 mg PO BID Discharge Medication List ALPRAZolam [Xanax] 0.25 mg PO HS PRN 09/09/18 [History] buPROPion HCL [Wellbutrin SR] 150 mg PO BID 09/09/18 [History] carvediloL [Carvedilol] 25 mg PO BID 09/09/18 [History] Cholecalciferol [Vitamin D3 (25 Mcg = 1000 Iu)] 50 mcg PO DAILY 02/14/21 [History] Ezetimibe [Zetia] 10 mg PO DAILY 02/14/21 [History] Febuxostat 40 mg PO DAILY 02/14/21 [History] Ferrous Sulfate [Iron (65 MG Elemental)] 325 mg PO DAILY 02/14/21 [History] Furosemide [Lasix] 40 mg PO DAILY PRN 02/14/21 [History] amLODIPine [Norvasc] 10 mg PO DAILY 02/14/21 [History] Aspirin 81 mg PO DAILY #30 chew 02/15/21 [Rx] Clopidogrel [Plavix] 75 mg PO DAILY #21 tab 02/15/21 [Rx] hydrALAZINE HCL [Apresoline] 75 mg PO TID #90 tab 02/15/21 [Rx] Follow up Appointment(s)/Referral(s): Carleen Serrato MD [STAFF PHYSICIAN] - 1 Week Delisa Flores MD [STAFF PHYSICIAN] - 1 Week Pop Quiles DO [Primary Care Provider] - 3 Days Activity/Diet/Wound Care/Special Instructions: Renal and cardiac diet
[2021-02-15 13:46] VITALS: BP 142/85; PULSE 61
--- NOTE | 2021-02-15 13:50 | P.PN ---
Subjective Progress Note Date: 02/15/21 Patient was seen for a follow-up. All symptoms have resolved. No new focal symptoms. Objective - Vital Signs Vital signs: Vital Signs Temp 98.0 F 02/15/21 08:00 Pulse 59 L 02/15/21 08:00 Resp 18 02/15/21 08:00 BP 161/97 02/15/21 08:00 Pulse Ox 98 02/15/21 08:00 Intake & Output 02/14/21 02/15/21 02/15/21 18:59 06:59 18:59 Intake Total 840 20 240 Balance 840 20 240 Weight 104.326 kg 102.5 kg Intake: IV 20 Invasive Line 1 20 Oral 840 240 Other: Voiding Method Toilet # Voids 1 1 3 - Exam Patient's mental status, speech and language functions are normal. Cranial nerves normal. No ataxia. - Labs CBC & Chem 7: 02/15/21 08:09 02/15/21 08:09 Labs: Abnormal Lab Results - Last 24 Hours (Table) 02/15/21 02/15/21 Range/Units 08:09 08:09 RBC 4.02 L (4.30-5.90) m/uL Hgb 12.4 L (13.0-17.5) gm/dL Hct 38.0 L (39.0-53.0) % Potassium 5.6 H (3.5-5.1) mmol/L Chloride 110 H (98-107) mmol/L Carbon Dioxide 21 L (22-30) mmol/L BUN 45 H (9-20) mg/dL Creatinine 4.37 H (0.66-1.25) mg/dL Glucose 115 H (74-99) mg/dL Triglycerides 179 H (<150) mg/dL Cholesterol 225 H (<200) mg/dL LDL Cholesterol, Calc 152 H (0-99) mg/dL HDL Cholesterol 37 L (40-60) mg/dL Assessment and Plan Assessment: * Probable TIA manifesting with transient numbness of the left arm. Symptoms have mostly resolved. Patient's current NIH stroke scale is 0. * Hypertension * Hyperlipidemia * Polycystic kidney disease, with advanced renal insufficiency. * Family history of strokes TIA. Plan: * Continue dual antiplatelet medication for 21 days. Thereafter Plavix can be discontinued and maintain on aspirin 81 mg. Discussed with nephrology, Dr Serrato, who cleared for above regimen. * Fasting a.m. lipid panel, hemoglobin A1c * Patient's lipid panel with cholesterol 225, LDL 152, HDL 37 and triglycerides 179. Patient currently on Zetia 10 mg daily which was started one week ago. Patient states that he has taken Lipitor for a long time, would produce significant myalgias. Once he stopped Lipitor, the myalgias bent away. He does not want to go back on Lipitor. Patient states that he just started Zetia and wants to see how his lipids are controlled with it. He was recommended to have his lipid panel checked in 3 months. If LDL continues to be > 100, then he should go back on some other statins. * Hemoglobin A1c pending. * 2-D echo with bubble study revealed normal left-ventricular size. Agitated saline was negative for PFO. * MRI of the brain revealed no acute stroke. Mild sinus disease. * Neurologically clear for discharge.
--- NOTE | 2021-02-15 15:23 | CONS ---
CONSULTATION REASON FOR CONSULT: Renal failure. HISTORY OF PRESENT ILLNESS: The patient is a 50-year-old male with history of chronic kidney disease, NKF stage 4 to 5, with baseline creatinine about 3.7 to 4 mg/dL secondary to polycystic kidney disease. Patient was admitted to the hospital with complaints of numbness of the left hand. There was no tingling, no loss of power in the extremities. No fever, chills, nausea, vomiting or abdominal pain. Initial CT scan was negative. MRI was also performed. Patient had CT angiogram as well done yesterday which did not show any evidence of stenosis. Brain MRI was also unremarkable. Serum creatinine was 4.74 on initial admission yesterday. It is now at 4.37. Potassium is staying at 5.5 to 5.6 mEq/L. PAST MEDICAL HISTORY: CKD, stage 4 to 5, secondary to polycystic kidney disease, currently being worked up for transplant, hyperlipidemia, hypertension, nephrolithiasis. PAST SURGICAL HISTORY: Hernia repair, umbilical hernia repair, eye surgery for vision correction. SOCIAL HISTORY: Patient is a former smoker. No history of drug abuse or alcohol abuse. MEDICATIONS: Medications currently include Xanax, Wellbutrin, Coreg, Zetia, iron, Lasix, Cozaar, Norvasc, clonidine. ALLERGIES: ALLERGIES include PENICILLIN. REVIEW OF SYSTEMS: As per HPI. Other systems negative. PHYSICAL EXAMINATION: Comfortable, awake, not in any acute distress. Blood pressure 161/97, heart rate 59 per minute. He is afebrile. Examination of lower extremities shows no evidence of edema. 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 Patient is moving all 4 extremities. LABS: Sodium 138, potassium 5.6, chloride 110. CO2 is 21, BUN 45, creatinine 4.37, hemoglobin 12.4 g/dL. ASSESSMENT: 1. Acute kidney injury, possibly prerenal. Will start patient on IV fluids. Agree with holding off on Cozaar, especially given the hyperkalemia. 2. Hyperkalemia associated with advanced kidney disease and use of angiotensin receptor blockers. 3. Transient ischemic attack, being followed by Neurology, started on Plavix and aspirin. 4. Hyperuricemia, maintained on allopurinol. 5. Polycystic kidney disease, stage 4 to 5 chronic kidney disease. Baseline creatinine about 3.8 to 3.7 mg/dL. PLAN: Start IV fluids. Agree with holding Cozaar. Avoid hypotension. Repeat labs in a.m. Thank you for this consultation. Will continue to follow the patient with you during his hospitalization. MMODL / IJN: [id number] /
[2021-02-15 17:10] LABS: Hemoglobin A1C 4.9 % (4.0-6.0)
== END 2021-02-15 16:20 | disposition home or self-care (01) ==
LOC: EC 07:59 → INTOOBSV 10:13 → 3SCARD 10:13 → UNDODISIN 02-15 16:20
PROVIDERS: ADMIT Internal Medicine; ATTEND Internal Medicine
DX: R20.0 Anesthesia of skin (principal); R29.818 Other symptoms and signs involving the nervous system; E87.2 Acidosis; N17.9 Acute kidney failure, unspecified; I12.0 Hypertensive chronic kidney disease with stage 5 chronic kidney disease or end stage renal disease; N18.5 Chronic kidney disease, stage 5; Q61.3 Polycystic kidney, unspecified; Z20.822 Contact with and (suspected) exposure to COVID-19; E87.5 Hyperkalemia; E78.5 Hyperlipidemia, unspecified; R00.1 Bradycardia, unspecified; I67.89 Other cerebrovascular disease; E78.00 Pure hypercholesterolemia, unspecified; K74.60 Unspecified cirrhosis of liver; F32.9 Major depressive disorder, single episode, unspecified; F41.0 Panic disorder [episodic paroxysmal anxiety]; Z79.899 Other long term (current) drug therapy; Z88.0 Allergy status to penicillin; Z87.442 Personal history of urinary calculi; Z76.82 Awaiting organ transplant status; Z87.891 Personal history of nicotine dependence; Z82.3 Family history of stroke; Z82.71 Family history of polycystic kidney; Z84.1 Family history of disorders of kidney and ureter
CPT/HCPCS: 96361 ×3; 96374; 99291; 36415; 94760; 93005; 93306; 97161; 97165; 84439; 80061; 80053; 80048; 84443; 84484; 85025; 85027; 85610; 85730; 83036; 87635; 71046; 70496; 70450; 70498; 70551; G0378 ×2; S0106 ×2; Q9967; 96360

== ENCOUNTER 2021-03-18 13:31 | Observation (INO) | payer BC ==
[2021-03-17 09:10] VITALS: BMI 29.5
[~2021-03-18 13:31] MED LIST: ACETAMINOPHEN TAB 500 MG TAB PO PRN; DEXAMETHASONE SOD PHOSPHATE 4 MG/ML 1 ML VIAL IV ONE; HEPARIN SODIUM,PORCINE/PF 5,000 UNIT/0.5 ML SYRINGE SQ PRN; MIDAZOLAM 2 MG/2 ML VIAL IV PRN; ONDANSETRON 4 MG/2 ML VIAL IVP ONE; SCOPOLAMINE 1.5MG/72HR PATCH TRANSDERM ONE; diphenhydrAMINE 50 MG/ML 1 ML VIAL IVP ONE
[2021-03-18] MEDS ORDERED: LACTATED RINGERS 1,000 ML IV ONE (13:57)
[2021-03-18 14:16] LABS: Glucose,Whole Blood 91 mg/dL (75-99)
[2021-03-18] MEDS ORDERED: SUCCINYLCHOLINE CHLORIDE 100 MG/5 ML SYR IV ONE (16:47)
[2021-03-18] MEDS ORDERED: fentaNYL (PF) 50 MCG/ML 2 ML AMP ONE (16:47)
[2021-03-18] MEDS ORDERED: LIDOCAINE 1% INJ 10MG/ML (20 ML MDV) ONE (16:47)
[2021-03-18] MEDS ORDERED: ROCURONIUM 10 MG/ML (5 ML VIAL) IV ONE (16:47)
[2021-03-18] MEDS ORDERED: NEOSTIGMINE 1 MG/ML 10 ML VIAL ONE (16:47)
[2021-03-18] MEDS ORDERED: GLYCOPYRROLATE 0.2 MG/ML 2 ML VIAL ONE (16:47)
[2021-03-18] MEDS ORDERED: PROPOFOL 10 MG/ML 20 ML VIAL IV ONE (16:47)
[2021-03-18] MEDS ORDERED: MIDAZOLAM 2 MG/2 ML VIAL ONE (16:47)
[2021-03-18] MEDS ORDERED: MINERAL OIL 1 APPLIC/ML OIL TOPICAL ONE (17:39)
[2021-03-18] MEDS ORDERED: BUPIVACAINE (PF) 0.25% 30 ML VIAL SQ ONE ×2 (17:43)
[2021-03-18] MEDS ORDERED: SODIUM CHLORIDE 0.9% 250 ML IV ONE (17:47)
[2021-03-18] MEDS ORDERED: ACETAMINOPHEN TAB 325 MG TAB PO SCH (18:00)
--- NOTE | 2021-03-18 18:03 | P.OP ---
Date of Procedure: 03/18/21 Procedure(s) Performed: PREOPERATIVE DIAGNOSIS: Renal failure, incarcerated ventral hernia POSTOPERATIVE DIAGNOSIS: Same PROCEDURE: Repair incarcerated ventral hernia with mesh, peritoneal dialysis catheter insertion SURGEON: Dr. Bazzi ANESTHESIA: General OPERATIVE PROCEDURE DETAILS: Patient placed on the operating table in the supine position. Abdomen was prepped and draped in usual sterile fashion. A vertical incision was then made superior to the umbilicus by approximately 5 cm. Dissection through the subcutaneous tissues took place using electrocautery. The patient had a single-vessel defect measuring 1 cm in size. The hernia sac popping through this area measured about 3 cm. The hernia sac was excised. The preperitoneal space was bluntly dissected. A 4.3 cm ventral ex mesh was placed beneath the fascia in the preperitoneal space. This was then sutured to the fascia using trans-fascial 0 Ethibond sutures. The defect was closed horizontally using interrupted mattress 0 Ethibond sutures. The folding edge was sutured down using 0 Ethibond sutures as well. The subcutaneous tissues were closed using 3-0 Vicryl sutures. The skin was closed using a running 4-0 Monocryl suture. Skin glue and sterile dressings were then later applied. A small vertical incision was then made in the right periumbilical location. Dissection down through the subcutaneous tissues took place using electrocautery. The anterior rectus was divided vertically using the scalpel. The rectus was bluntly. The posterior rectus was visualized. An 0 Vicryl pursestring was placed. A small opening in the posterior rectus fascia and peritoneum took place using a Metzenbaum scissors. There were no adhesions to the suture that was placed. The pigtail catheter was advanced into the pelvis over a stylette. No resistance was met. The inner cuff was secured to the fascia using the 0 Vicryl pursestring that was placed. The catheter was tunneled to an exit site in the right lateral lower quadrant. The catheter was connected to the 1 L bag of saline and approximated 800 mL of saline was easily introduced into the peritoneal cavity. The fluid was then allowed to evacuate. The majority of the fluid was returned. The anterior rectus fascia was then reapproximated using a running 0 Vicryl stitch. The subcutaneous tissues reprepped using 3-0 Vicryl sutures and the skin using 4-0 Monocryl sutures. The outpatient dialysis adapter was applied to the end of the catheter. Sterile dressings were then applied after skin glue was placed over the incision. HERNIA CHARACTERISTICS: Length: 1 cm Width: 1 cm Type: Incarcerated ventral TYPE OF MESH USED: Ventral ex centimeter LOCATION OF MESH: Sublay FIXATION: 0 Ethibond sutures DISPOSITION: Stable to recovery room
[2021-03-18] MEDS: HYDROmorphone 0.5 MG/0.5 ML SYRINGE IVP PRN ×2 (18:20→18:29)
[2021-03-18] MEDS ORDERED: ONDANSETRON 4 MG/2 ML VIAL ONE (18:57)
[2021-03-18] MEDS ORDERED: ONDANSETRON 4 MG/2 ML VIAL IVP ONE (19:01)
[2021-03-18] MEDS ORDERED: METOCLOPRAMIDE 5 MG/ML 2 ML VIAL IVP PRN (20:15)
[2021-03-18] MEDS ORDERED: ONDANSETRON 4 MG/2 ML VIAL IVP PRN (20:15)
[2021-03-18] MEDS ORDERED: diphenhydrAMINE 50 MG/ML 1 ML VIAL ONE (20:18)
[2021-03-18] MEDS ORDERED: ACETAMINOPHEN IV (For NPO) 1,000 MG in EMPTY BAG 1 BAG IVPB PRN (20:20)
[2021-03-18 20:27] LABS: Glucose,Whole Blood 139 mg/dL (75-99)
[2021-03-18] MEDS ORDERED: IBUPROFEN 600 MG TAB PO SCH (21:00)
[2021-03-18] MEDS: LACTATED RINGERS 1,000 ML IV SCH ×2 (21:49→23:18)
[2021-03-18] MEDS ORDERED: ALPRAZolam 0.25 MG TAB PO PRN (21:59)
[2021-03-18] MEDS ORDERED: FUROSEMIDE 40 MG TAB PO PRN (21:59)
[2021-03-18] MEDS ORDERED: ONDANSETRON 4 MG TAB PO PRN (21:59)
[2021-03-18] MEDS: amLODIPine 10 MG TAB PO SCH (22:46)
[2021-03-18] MEDS: hydrALAZINE HCL 25 MG TAB PO SCH (23:17)
[2021-03-18] MEDS: carvediloL 12.5 MG TAB PO SCH (23:18)
[2021-03-19] MEDS: carvediloL 12.5 MG TAB PO SCH ×2 (08:47→20:33)
[2021-03-19] MEDS: FERROUS SULFATE 325 MG TAB PO SCH (08:47)
[2021-03-19] MEDS: allopurinoL 100 MG TAB PO SCH (08:47)
[2021-03-19] MEDS: CHOLECALCIFEROL 25 MCG (1000 IU) TABLET PO SCH (08:47)
[2021-03-19] MEDS: EZETIMIBE 10 MG TAB PO SCH (08:47)
[2021-03-19] MEDS: ASPIRIN 81 MG PO SCH (08:47)
[2021-03-19] MEDS: hydrALAZINE HCL 25 MG TAB PO SCH ×3 (08:47→20:32)
[2021-03-19] MEDS: SODIUM BICARBONATE TAB 650 MG TAB PO SCH ×2 (08:48→20:32)
[2021-03-19] MEDS ORDERED: TAMSULOSIN 0.4 MG CAP.ER.24H PO STA (14:07)
--- NOTE | 2021-03-19 14:30 | P.PN ---
Subjective Progress Note Date: 03/19/21 CHIEF COMPLAINT: Ventral hernia HISTORY OF PRESENT ILLNESS: The patient is a 50-year-old male status post ventral hernia repair with peritoneal dialysis catheter insertion. Patient remained due to intractable nausea and vomiting. This morning, his nausea is resolved but now has urinary retention with catheterization. Pain is controlled. ROS: No fevers or chills. No new chest pain. No productive sputum PHYSICAL EXAM: VITAL SIGNS: Reviewed CONSTITUTIONAL: Well developed and in no acute distress. EYES: Conjuctivae without sclera icterus. Extraocular movements grossly intact. HEAD, EARS, NOSE, THROAT: Moist buccal mucosa. Head is atraumatic, normocephalic. Hears conversational speech. No nasal drainage. NECK: No thyroidomegaly. RESPIRATORY: Non-labored respirations and equal bilateral excursions. CARDIOVASCULAR: 2+ radial pulses. ABDOMEN: Incisions intact. No peritonitis. MUSCULOSKELETAL: No gross deformity of the lower extremities noted. No clubbing. No cyanosis. SKIN: Good skin turgor. Well perfused. NEUROLOGIC: Cranial nerves II through XII grossly intact. No focal or lateralizing signs. PSYCH: Appropriate affect. Alert and oriented to person, place and time. CLINICAL LABS: Glucose 139. Coronavirus negative. ASSESSMENT: 1. Ventral hernia 2. Chronic renal failure, dialysis dependent PLAN: 1. Flomax ordered 2. Discharge after void. Objective - Vital Signs Vital signs: Vital Signs Temp 97.7 F 03/19/21 07:22 Pulse 63 03/19/21 07:30 Resp 16 03/19/21 07:30 BP 137/83 03/19/21 07:22 Pulse Ox 97 03/19/21 07:22 Intake & Output 03/18/21 03/19/21 03/19/21 18:59 06:59 18:59 Intake Total 1300 Output Total 25 950 875 Balance 1275 -950 -875 Weight 99.2 kg 99.2 kg Intake: IV 1300 Output: Urine 950 875 Straight 950 875 Estimated Blood Loss 25 Other: # Voids 3 - Labs Labs: Abnormal Lab Results - Last 24 Hours (Table) 03/18/21 Range/Units 20:25 POC Glucose (mg/dL) 139 H (75-99) mg/dL Assessment and Plan (1) Ventral hernia Current Visit: Yes Status: Acute Code(s): K43.9 - VENTRAL HERNIA WITHOUT OBSTRUCTION OR GANGRENE SNOMED Code(s): 732927864 (2) Dependence on peritoneal dialysis Current Visit: Yes Status: Acute Code(s): Z99.2 - DEPENDENCE ON RENAL DIALYSIS SNOMED Code(s): 922721204 (3) Urinary retention Current Visit: Yes Status: Acute Code(s): R33.9 - RETENTION OF URINE, UNSPECIFIED SNOMED Code(s): 330524037 (4) Postoperative urinary retention Current Visit: Yes Status: Acute Code(s): N99.89 - OTH POSTPROCEDURAL COMPLICATIONS AND DISORDERS OF SYS; R33.8 - OTHER RETENTION OF URINE SNOMED Code(s): 396972318
[2021-03-19] MEDS: buPROPion SR 150 MG TABLET.ER PO SCH (20:32)
[2021-03-19] MEDS: amLODIPine 10 MG TAB PO SCH (20:33)
[2021-03-20] MEDS: LACTATED RINGERS 1,000 ML IV SCH (05:19)
[2021-03-20 07:18] VITALS: RESP 18
[2021-03-20] MEDS: buPROPion SR 150 MG TABLET.ER PO SCH (08:40)
[2021-03-20] MEDS: ASPIRIN 81 MG PO SCH (08:40)
[2021-03-20] MEDS: allopurinoL 100 MG TAB PO SCH (08:40)
[2021-03-20] MEDS: carvediloL 12.5 MG TAB PO SCH (08:41)
[2021-03-20] MEDS: SODIUM BICARBONATE TAB 650 MG TAB PO SCH (08:41)
[2021-03-20] MEDS: EZETIMIBE 10 MG TAB PO SCH (08:41)
[2021-03-20] MEDS: CHOLECALCIFEROL 25 MCG (1000 IU) TABLET PO SCH (08:41)
[2021-03-20] MEDS: hydrALAZINE HCL 25 MG TAB PO SCH (08:42)
[2021-03-20] MEDS: FERROUS SULFATE 325 MG TAB PO SCH (08:42)
[2021-03-20 13:59] VITALS: BP 143/88; PULSE 75; TEMP 97.7
[2021-03-20] MEDS ORDERED: TAMSULOSIN 0.4 MG CAP.ER.24H PO STA (14:14)
--- NOTE | 2021-03-20 15:10 | P.DS ---
Providers Date of admission: 03/19/21 14:50 Expected date of discharge: 03/20/21 Attending physician: Karan Bazzi Primary care physician: Pop Quiles - Discharge Diagnosis(es) (1) Ventral hernia Current Visit: Yes Status: Acute (2) Dependence on peritoneal dialysis Current Visit: Yes Status: Acute (3) Urinary retention Current Visit: Yes Status: Acute (4) Postoperative urinary retention Current Visit: Yes Status: Acute Hospital Course: CHIEF COMPLAINT: Ventral hernia HISTORY OF PRESENT ILLNESS: The patient is a 50-year-old male status post ventral hernia repair with peritoneal dialysis catheter insertion. Initially he had severe postop nausea and vomiting had stayed. Yesterday he had acute urinary retention following surgery. He was placed on Flomax. His urinary retention is improving. ROS: No fevers or chills. No new chest pain. No productive sputum PHYSICAL EXAM: VITAL SIGNS: Reviewed CONSTITUTIONAL: Well developed and in no acute distress. EYES: Conjuctivae without sclera icterus. Extraocular movements grossly intact. HEAD, EARS, NOSE, THROAT: Moist buccal mucosa. Head is atraumatic, normocephalic. Hears conversational speech. No nasal drainage. NECK: No thyroidomegaly. RESPIRATORY: Non-labored respirations and equal bilateral excursions. CARDIOVASCULAR: 2+ radial pulses. ABDOMEN: Incisions intact. No peritonitis. MUSCULOSKELETAL: No gross deformity of the lower extremities noted. No clubbing. No cyanosis. SKIN: Good skin turgor. Well perfused. NEUROLOGIC: Cranial nerves II through XII grossly intact. No focal or lateralizing signs. PSYCH: Appropriate affect. Alert and oriented to person, place and time. ASSESSMENT: 1. Ventral hernia 2. Chronic renal failure, dialysis dependent 3. Postoperative urinary retention PLAN: 1. Symptoms of retention has improved. May be discharged home. 2. Recommend take Flomax at home. Patient Condition at Discharge: Stable Plan - Discharge Summary Discharge Rx Participant: Yes New Discharge Prescriptions: New oxyCODONE HCL [OxyIR] 5 mg PO Q6H PRN 3 Days #6 tab PRN Reason: Breakthrough Pain No Action buPROPion HCL [Wellbutrin SR] 150 mg PO BID ALPRAZolam [Xanax] 0.25 mg PO DAILY PRN PRN Reason: Anxiety carvediloL [Carvedilol] 25 mg PO BID Aspirin 81 mg PO DAILY #30 chew amLODIPine BESYLATE 10 mg PO HS Ondansetron [Zofran] 4 mg PO Q8HR PRN PRN Reason: Nausea Furosemide [Lasix] 40 mg PO DAILY PRN PRN Reason: Edema Ferrous Sulfate [Iron (65 MG Elemental)] 325 mg PO DAILY Cholecalciferol [Vitamin D3 (25 Mcg = 1000 Iu)] 50 mcg PO DAILY Febuxostat 40 mg PO DAILY Ezetimibe [Zetia] 10 mg PO DAILY hydrALAZINE HCL [Apresoline] 75 mg PO TID #90 tab Sodium Bicarbonate Tab 650 mg PO BID Discharge Medication List ALPRAZolam [Xanax] 0.25 mg PO DAILY PRN 09/09/18 [History] buPROPion HCL [Wellbutrin SR] 150 mg PO BID 09/09/18 [History] carvediloL [Carvedilol] 25 mg PO BID 09/09/18 [History] Cholecalciferol [Vitamin D3 (25 Mcg = 1000 Iu)] 50 mcg PO DAILY 02/14/21 [History] Ezetimibe [Zetia] 10 mg PO DAILY 02/14/21 [History] Febuxostat 40 mg PO DAILY 02/14/21 [History] Ferrous Sulfate [Iron (65 MG Elemental)] 325 mg PO DAILY 02/14/21 [History] Furosemide [Lasix] 40 mg PO DAILY PRN 02/14/21 [History] Aspirin 81 mg PO DAILY #30 chew 02/15/21 [Rx] hydrALAZINE HCL [Apresoline] 75 mg PO TID #90 tab 02/15/21 [Rx] Ondansetron [Zofran] 4 mg PO Q8HR PRN 03/17/21 [History] Sodium Bicarbonate Tab 650 mg PO BID 03/17/21 [History] amLODIPine BESYLATE 10 mg PO HS 03/17/21 [History] oxyCODONE HCL [OxyIR] 5 mg PO Q6H PRN 3 Days #6 tab 03/18/21 [Rx] Follow up Appointment(s)/Referral(s): Karan Bazzi MD [Medical Doctor] - 04/06/21 2:20 pm Patient Instructions/Handouts: *Surgery [facility] - (Anesthesia) Discharge Instructions Outpatient Surgery, Peritoneal Dialysis Catheter Care (ED), Peritoneal Dialysis Catheter Care (DC), Ventral Hernia (DC) Discharge Disposition: HOME SELF-CARE
== END 2021-03-20 15:30 | disposition home or self-care (01) ==
LOC: OR 13:31 → 4SSUR 18:01 → OR 03-19 14:50
PROVIDERS: ADMIT Surgery; ATTEND Surgery
DX: K43.6 Other and unspecified ventral hernia with obstruction, without gangrene (principal); R11.2 Nausea with vomiting, unspecified; R33.9 Retention of urine, unspecified; N18.9 Chronic kidney disease, unspecified; I12.9 Hypertensive chronic kidney disease with stage 1 through stage 4 chronic kidney disease, or unspecified chronic kidney disease; Q61.3 Polycystic kidney, unspecified; F32.9 Major depressive disorder, single episode, unspecified; E78.5 Hyperlipidemia, unspecified; F41.9 Anxiety disorder, unspecified; Z20.822 Contact with and (suspected) exposure to COVID-19; Z99.2 Dependence on renal dialysis; Z87.891 Personal history of nicotine dependence; Z79.899 Other long term (current) drug therapy; Z98.890 Other specified postprocedural states; Z88.0 Allergy status to penicillin; Z84.1 Family history of disorders of kidney and ureter
CPT/HCPCS: 49561; 49568; 36571; 88302; 87635; G0378 ×2; C1752; C1781; J2250; J1200; J1100; J2710; S0106 ×2; J0690; J2405; J2001; J3010; J0330; J2704; J1170; J1790; J1644

== ENCOUNTER 2021-05-12 07:36 | Day surgery (SDC) | payer BC ==
[2021-05-11 08:30] VITALS: BMI 28.2
[~2021-05-12 07:36] MED LIST changes: -ACETAMINOPHEN TAB 500 MG TAB PO PRN; -DEXAMETHASONE SOD PHOSPHATE 4 MG/ML 1 ML VIAL IV ONE; -HEPARIN SODIUM,PORCINE/PF 5,000 UNIT/0.5 ML SYRINGE SQ PRN; +LACTATED RINGERS 1,000 ML IV SCH; -MIDAZOLAM 2 MG/2 ML VIAL IV PRN; -ONDANSETRON 4 MG/2 ML VIAL IVP ONE; -SCOPOLAMINE 1.5MG/72HR PATCH TRANSDERM ONE; -diphenhydrAMINE 50 MG/ML 1 ML VIAL IVP ONE
[2021-05-12 08:25] VITALS: RESP 16; TEMP 97.9
[2021-05-12] MEDS ORDERED: LIDOCAINE 1% INJ 10MG/ML (20 ML MDV) ONE (08:32)
[2021-05-12] MEDS ORDERED: PROPOFOL 10 MG/ML 20 ML VIAL IV ONE (08:32)
--- NOTE | 2021-05-12 09:02 | P.PCN ---
Date of Procedure: 05/12/21 Description of Procedure: BRIEF HISTORY: Patient is a 50-year-old male presenting for outpatient colonoscopy for screening for malignant neoplasm of the colon. No prior colonoscopy. No change in bowel habits although he does report intermittent episodes of altered bowel function after having his peritoneal catheter placed. No family history of colon cancer. PROCEDURE PERFORMED: Colonoscopy. PREOPERATIVE DIAGNOSIS: .Screening for malignant neoplasm of the colon, no prior colonoscopy ESTIMATED BLOOD LOSS: Minimal. IV sedation per Anesthesia. PROCEDURE: After informed consent was obtained, the patient, was brought into the endoscopy unit. IV sedation was administered by Anesthesia under continuous monitoring. Digital rectal examination was normal. Initially the Olympus CF-190 flexible video colonoscope was then inserted in the rectum, gradually advanced into the cecum without any difficulty. Careful examination was performed as the scope was gradually being withdrawn. Ileocecal valve and the appendiceal orifice were visualized and appeared normal. Prep was excellent. Mucosa of the cecum, ascending colon, transverse colon, descending colon, sigmoid colon, and rectum appeared normal, and normal-appearing terminal ileum . Retroflexion was performed in the rectum and no lesions were seen, low-grade internal hemorrhoids seen . The patient tolerated the procedure well. IMPRESSION: Normal-appearing colon from rectum to cecum and normal-appearing terminal ileum. Internal hemorrhoids. RECOMMENDATIONS: Findings of this examination were discussed with the patient and his family. Okay to resume diet. Okay to resume medications. Recommend repeat colonoscopy in 10 years for screening for malignant neoplasm of the colon or sooner if any worrisome signs or symptoms develop.
[2021-05-12 09:18] VITALS: BP 131/80; PULSE 63
== END 2021-05-12 09:35 | disposition home or self-care (01) ==
LOC: ORWHC2ENDO 07:36
PROVIDERS: ATTEND Internal Medicine
DX: Z12.11 Encounter for screening for malignant neoplasm of colon (principal); K64.8 Other hemorrhoids; I10 Essential (primary) hypertension; E78.5 Hyperlipidemia, unspecified; Z87.891 Personal history of nicotine dependence; Z86.73 Personal history of transient ischemic attack (TIA), and cerebral infarction without residual deficits; F39 Unspecified mood [affective] disorder; N19 Unspecified kidney failure; Z79.82 Long term (current) use of aspirin; Z88.0 Allergy status to penicillin
CPT/HCPCS: G0121; J2001; J2704

== ENCOUNTER → 2021-09-14 | Outpatient (CLI) | payer BC ==
--- NOTE | 2021-09-14 22:42 | CT ---
EXAMINATION TYPE: CT abdomen pelvis wo con DATE OF EXAM: 09/14/2021 HISTORY: h/o polycystic kidney disease, trying to get on the transplant list. End-stage renal disease . CT DLP: 1162 mGycm. Automated Exposure Control for Dose Reduction was Utilized. TECHNIQUE: CT scan of the abdomen and pelvis is performed without oral or IV contrast. COMPARISON: CT abdomen and pelvis September 09, 2018 FINDINGS: Within the limitations of a non-contrast study, the following observations are made. LUNG BASES: No significant abnormality is appreciated. LIVER/GB: Some scattered simple-appearing thin-walled cysts throughout the liver redemonstrated PANCREAS: No significant abnormality is seen. SPLEEN: No significant abnormality is seen. ADRENALS: No significant abnormality is seen. KIDNEYS: Enlarged bilateral kidneys with innumerable cysts of varying size and shape bilaterally rede monstrated. Local mass effect is redemonstrated. BOWEL: Moderate to large size hiatal hernia partially imaged increased in size from prior. No suspici ous small or large bowel dilatation. GENITAL ORGANS: Mildly enlarged prostate bulging on bladder base. Correlate clinically for BPH. Scatt ered tiny pelvic phleboliths redemonstrated. LYMPH NODES: No greater than 1cm abdominal or pelvic lymph nodes are appreciated. OSSEOUS STRUCTURES: Slight underlying scoliotic curvature. OTHER: New percutaneous peritoneal dialysis catheter terminating left pelvis related IMPRESSION: Findings consistent with polycystic kidney disease redemonstrated. Significant enlargemen t and mass effect redemonstrated.
== END | disposition home or self-care (01) ==
LOC: RADCTMAIN 17:12
PROVIDERS: ATTEND Family Medicine
DX: N18.6 End stage renal disease (principal); Q61.3 Polycystic kidney, unspecified
CPT/HCPCS: 74176

== ENCOUNTER 2022-02-06 17:47 | Emergency (ER) | payer MEDICARE, BC ==
--- NOTE | 2022-02-06 22:19 | CT ---
EXAMINATION TYPE: CT abdomen pelvis wo con DATE OF EXAM: 02/06/2022 COMPARISON: 09/14/2021 HISTORY: abdominal pain adn bloating. abdominal hernia. hx of polycystic kidney disease CT DLP: 960.4 mGycm Automated exposure control for dose reduction was used. Images obtained from the diaphragm to the floor the pelvis without contrast. Lung bases are clear of infiltrate. There is large hiatal hernia. Heart size is normal. No pericardia l effusion. No pleural effusion. There multiple cysts in the liver that measure up to 2.5 cm. Spleen is intact. The stomach is intact. No pancreatic mass. The bile ducts are not dilated. The gallbladder appears normal. There is extensive cystic replacement of the kidneys which are markedly enlarged. Right kidney measur es 22 cm. Left kidney measures 24 cm. There is no retroperitoneal adenopathy. There is small amount o f abdominal peritoneal fluid consistent with dialysis. There is peritoneal catheter noted. Urinary bl adder distends smoothly. There is no inguinal hernia. There is no mesenteric edema. No evidence of free air. No sign of a bowel obstruction. Appendix not c learly seen. No sign of thickened appendix. Lumbar vertebrae have normal alignment. Posterior elements are intact. Bony pelvis is intact. Hip huong nts are intact there is a slight levoscoliosis. There is small umbilical hernia that contains periton eal fluid. The bony pelvis is intact. Hip joints appear intact. Sacroiliac joints appear normal. IMPRESSION: Changes of polycystic kidney disease. Multiple cysts also in the liver. No acute abnormality in the abdomen pelvis. Peritoneal dialysis catheter noted. No adverse change com pared to old exam.
[2022-02-07 00:13] LABS: Albumin 4.5 g/dL (3.5-5.0); Calcium 10.1 mg/dL (8.4-10.2); Potassium 5.8 mmol/L (3.5-5.1); Total Bilirubin 0.6 mg/dL (0.2-1.3); Total Protein 7.5 g/dL (6.3-8.2)
[2022-02-07 00:23] LABS: Anisocytosis Slight; Basophils # (A) 0.1 k/uL (0-0.2); Basophils % (A) 1 %; Eosinophils # (A) 0.1 k/uL (0-0.7); Eosinophils % (A) 2 %; HCT 42.5 % (39.0-53.0); HGB 13.7 gm/dL (13.0-17.5); Lymphocytes # (A) 1.1 k/uL (1.0-4.8); Lymphocytes % (A) 11 %; MCH 30.2 pg (25.0-35.0); MCHC 32.1 g/dL (31.0-37.0); Mean Platelet Volume 7.9; Monocytes # (A) 0.4 k/uL (0-1.0); Monocytes % (A) 4 %; Neutrophils # (A) 7.8 k/uL (1.3-7.7); Neutrophils % (A) 81 %; Platelet Count 321 k/uL (150-450); RBC 4.53 m/uL (4.30-5.90); RDW 16.6 % (11.5-15.5); WBC 9.6 k/uL (3.8-10.6)
[2022-02-07] MEDS ORDERED: HYDROmorphone 1 MG/ML 1 ML SYRINGE IVP STA (01:02)
[2022-02-07] MEDS ORDERED: ONDANSETRON 4 MG/2 ML VIAL IVP STA (01:02)
--- NOTE | 2022-02-07 01:14 | ED ---
Abdominal Pain HPI - General Chief Complaint: Abdominal Pain Stated Complaint: Hernia, Abdominal Pain Time Seen by Provider: 02/07/22 00:57 Source: patient, RN notes reviewed Mode of arrival: ambulatory Limitations: no limitations - History of Present Illness Initial Comments: This is a pleasant 51-year-old male who presents to the emergency department complaining of pain just above his umbilicus. Patient states he has a known umbilical hernia. Patient states that in previous times he has been able to reduce this on his own however this morning he states it seemed to be causing more pain. He states it was distended and popped out. He was unable to reduce it. Patient denying any difficulty with bowel movements. He has no nausea or vomiting. However she is describing a rather intense pain to the area. States it seems to come in waves. No chest pain or shortness of breath. Patient is a peritoneal dialysis patient and states he did do an exchange prior to arrival and it was clear. Patient has not had a fever. No headache, no fever or chills, no changes in vision or hearing, no sore throat or difficulty with speech, no neck pain, no chest pain or shortness of breath, no abdominal pain, no nausea or vomiting, no changes in bowel movements, no numbness or tingling, no extremity pain, no skin rashes or lesions. MD Complaint: abdominal pain - Related Data Home Medications Medication Instructions Recorded Confirmed ALPRAZolam [Xanax] 0.25 mg PO DAILY PRN 09/09/18 05/11/21 buPROPion HCL [Wellbutrin SR] 150 mg PO BID 09/09/18 05/11/21 carvediloL 25 mg PO BID 09/09/18 05/11/21 Cholecalciferol [Vitamin D3 (25 50 mcg PO DAILY 02/14/21 05/11/21 Mcg = 1000 Iu)] Ezetimibe [Zetia] 10 mg PO DAILY 02/14/21 05/11/21 Febuxostat 40 mg PO DAILY 02/14/21 05/11/21 Ferrous Sulfate [Iron (65 MG 325 mg PO DAILY 02/14/21 05/11/21 Elemental)] Furosemide [Lasix] 40 mg PO DAILY PRN 02/14/21 05/11/21 Ondansetron [Zofran] 4 mg PO Q8HR PRN 03/17/21 05/11/21 Sodium Bicarbonate Tab 650 mg PO BID 03/17/21 05/11/21 amLODIPine BESYLATE 10 mg PO HS 03/17/21 05/11/21 Previous Rx's Medication Instructions Recorded Aspirin 81 mg PO DAILY #30 chew 02/15/21 hydrALAZINE HCL [Apresoline] 75 mg PO TID #90 tab 02/15/21 Allergies Allergy/AdvReac Type Severity Reaction Status Date / Time Penicillins Allergy Unknown Verified 02/06/22 18:41 Childhood Review of Systems ROS Statement: Those systems with pertinent positive or pertinent negative responses have been documented in the HPI. ROS Other: All systems not noted in ROS Statement are negative. Past Medical History Past Medical History: CVA/TIA, Hyperlipidemia, Hypertension, Renal Disease Additional Past Medical History / Comment(s): Polycystic kidney disease, CKD, nephrolithiasis, anemia, ?TIA (January 2020). , hx gout., tinnitus, hearing loss., SOB. History of Any Multi-Drug Resistant Organisms: None Reported Past Surgical History: Hernia Repair Additional Past Surgical History / Comment(s): Umbilical hernia, hernia repair as an , lasik eye surgery Past Anesthesia/Blood Transfusion Reactions: Motion Sickness, Postoperative Nausea & Vomiting (PONV) Past Psychological History: Anxiety, Depression Smoking Status: Former smoker Past Alcohol Use History: None Reported Past Drug Use History: None Reported - Past Family History Mother Family Medical History: Renal Disease Additional Family Medical History / Comment(s): Polycystic kidney disease. Father Family Medical History: CVA/TIA Additional Family Medical History / Comment(s): Father is . He had a CVA. General Exam - General Exam Comments Initial Comments: Patient in minimal distress. Does not appear to be ill or toxic. Vital signs reviewed Limitations: no limitations General appearance: alert, in no apparent distress Head exam: Present: atraumatic, normocephalic, normal inspection Eye exam: Present: normal appearance, PERRL, EOMI. Absent: scleral icterus, conjunctival injection, periorbital swelling ENT exam: Present: normal exam, mucous membranes moist Neck exam: Present: normal inspection. Absent: tenderness, meningismus, l ymphadenopathy Respiratory exam: Present: normal lung sounds bilaterally. Absent: respiratory distress, wheezes, rales, rhonchi, stridor Cardiovascular Exam: Present: regular rate, normal rhythm, normal heart sounds. Absent: systolic murmur, diastolic murmur, rubs, gallop, clicks GI/Abdominal exam: Present: soft, tenderness (Patient tender just above the umbilicus. There is a distended area which is approximately 3 x 5 cm and dimensions. No discoloration or erythema. Tender to palpation. Patient abdomen is soft and nontender elsewhere. No rebound or percussion tenderness.), normal bowel sounds. Absent: distended, guarding, rebound, rigid Extremities exam: Present: normal inspection, full ROM, normal capillary refill. Absent: tenderness, pedal edema, joint swelling, calf tenderness Back exam: Present: normal inspection Neurological exam: Present: alert, oriented X3, CN II-XII intact Psychiatric exam: Present: normal affect, normal mood Skin exam: Present: warm, dry, intact, normal color. Absent: rash Course Vital Signs 02/06/22 18:41 Temperature 98.2 F Pulse Rate 64 Respiratory 16 Rate Blood Pressure 148/96 O2 Sat by Pulse 99 Oximetry Procedures - Procedures Initial comment: Patient was placed in slight Trendelenburg position, and ice pack had been applied previously. Umbilical hernia was reduced with direct manipulation by me. Patient tolerated well. Medical Decision Making - Medical Decision Making Patient's presentation consistent with an incarcerated umbilical hernia. Com puted tomography scan ordered by provider in triage shows a small hernia with peritoneal fluid. No evidence of bowel loops. The case was discussed in detail with ED attending physician. Presentation, findings, treatment plan discussed in detail. Patient's presentation and clinical appearance is not consistent with peritonitis. Hernia reduced, patient tolerated well. Patient was observed after reduction. No distress. Pain improved. Patient was told to return to the ER for any signs or symptoms worsen. Told to return immediately if any other problems arise. All questions answered. Treatment plan discussed. Patient in agreement Every effort has been made to ensure accuracy of this dictation. However, due to the limitations of electronic medical records and dictation devices, errors in charting still occur. Supervising physician Dr. Capone - Lab Data Result diagrams: 02/06/22 23:32 02/06/22 23:32 Lab Results 02/06/22 02/06/22 02/07/22 Range/Units 23:32 23:32 01:31 WBC 9.6 (3.8-10.6) k/uL RBC 4.53 (4.30-5.90) m/uL Hgb 13.7 (13.0-17.5) gm/dL Hct 42.5 (39.0-53.0) % MCV 94.0 (80.0-100.0) fL MCH 30.2 (25.0-35.0) pg MCHC 32.1 (31.0-37.0) g/dL RDW 16.6 H (11.5-15.5) % Plt Count 321 (150-450) k/uL MPV 7.9 Neutrophils % 81 % Lymphocytes % 11 % Monocytes % 4 % Eosinophils % 2 % Basophils % 1 % Neutrophils # 7.8 H (1.3-7.7) k/uL Lymphocytes # 1.1 (1.0-4.8) k/uL Monocytes # 0.4 (0-1.0) k/uL Eosinophils # 0.1 (0-0.7) k/uL Basophils # 0.1 (0-0.2) k/uL Anisocytosis Slight Sodium 138 (137-145) mmol/L Potassium 5.8 H (3.5-5.1) mmol/L Chloride 107 (98-107) mmol/L Carbon Dioxide 20 L (22-30) mmol/L Anion Gap 11 mmol/L BUN 53 H (9-20) mg/dL Creatinine 7.27 H* (0.66-1.25) mg/dL Est GFR (CKD-EPI)AfAm 9 (>60 ml/min/1.73 sqM) Est GFR (CKD-EPI)NonAf 8 (>60 ml/min/1.73 sqM) Glucose 103 H (74-99) mg/dL Plasma Lactic Acid Real 0.9 (0.7-2.0) mmol/L Calcium 10.1 (8.4-10.2) mg/dL Total Bilirubin 0.6 (0.2-1.3) mg/dL AST 30 (17-59) U/L ALT 35 (4-49) U/L Alkaline Phosphatase 67 (38-126) U/L Total Protein 7.5 (6.3-8.2) g/dL Albumin 4.5 (3.5-5.0) g/dL Amylase 89 (30-110) U/L Lipase 73 (23-300) U/L Disposition Clinical Impression: Reducible umbilical hernia Disposition: HOME SELF-CARE Condition: Stable Instructions (If sedation given, give patient instructions): Umbilical Hernia (ED) Additional Instructions: Follow-up with your surgeon on Sunday as planned.Follow-up with your regular physician as directed. Return to the ER immediately if any symptoms worsen, new symptoms arise, or any other problems develop. Is patient prescribed a controlled substance at d/c from ED?: No Referrals: Karan Bazzi MD [Medical Doctor] - 02/08/22 Time of Disposition: 02:07
[2022-02-07 02:20] VITALS: BP 145/95; PULSE 65; RESP 22; TEMP 98
== END 2022-02-07 02:20 | disposition home or self-care (01) ==
LOC: EC 17:47
DX: K42.9 Umbilical hernia without obstruction or gangrene (principal); I12.9 Hypertensive chronic kidney disease with stage 1 through stage 4 chronic kidney disease, or unspecified chronic kidney disease; N18.9 Chronic kidney disease, unspecified; E78.5 Hyperlipidemia, unspecified; F32.A Depression, unspecified; F41.9 Anxiety disorder, unspecified; Z87.891 Personal history of nicotine dependence; Z86.73 Personal history of transient ischemic attack (TIA), and cerebral infarction without residual deficits; Z79.82 Long term (current) use of aspirin; Z79.899 Other long term (current) drug therapy
CPT/HCPCS: 36415; 80053; 82150; 83605; 83690; 85025; 86140; 74176; 99284; 96374; 96375; J2405; J1170

== ENCOUNTER 2022-02-25 18:40 | Inpatient (IN) | payer MEDICARE, BC ==
[2022-02-25] MEDS ORDERED: HYDROmorphone 1 MG/ML 1 ML SYRINGE IVP STA (19:14)
--- NOTE | 2022-02-25 19:18 | ED ---
General Adult HPI - General Chief complaint: Abdominal Pain Stated complaint: strangulated hernia Time Seen by Provider: 02/25/22 19:04 Source: patient Mode of arrival: ambulatory Limitations: no limitations - History of Present Illness Initial comments: Dictation was produced using [employer] dictation software. please excuse any grammatical, word or spelling errors. Chief Complaint: 51-year-old male presents to the emergency department for umbilical hernia pain History of Present Illness: Patient is a 51-year-old male who presents to the emergency department for umbilical hernia pain. Patient states he was at work around noon when he felt like his hernia popped out. He tried to reduce it but was unsuccessful. He states that the pain today is very severe. Patient was recently in the hospital for strangulate umbilical hernia. He had a conversation with his general surgeon that he would likely need to get his hernia repaired. Patient is on peritoneal dialysis. He understands that he would likely need to get temporary hemodialysis prior to surgery. She states that his pain is severe and comparable to when he had a kidney stone any ruptured cyst. Patient denies any nausea at this time. The ROS documented in this emergency department record has been reviewed and confirmed by me. Those systems with pertinent positive or negative responses have been documented in the HPI. All other systems are other negative and/or noncontributory. PHYSICAL EXAM: General Impression: Alert and oriented x3, not in acute distress HEENT: Normocephalic atraumatic, extra-ocular movements intact, pupils equal and reactive to light bilaterally, mucous membranes moist. Cardiovascular: Heart regular rate and rhythm Chest: Able to complete full sentences, no retractions, no tachypnea Abdomen: Exquisitely tender umbilical hernia, no skin changes over the umbilical hernia Musculoskeletal: Pulses present and equal in all extremities, no peripheral edema Motor: no focal deficits noted Neurological: CN II-XII grossly intact, no focal motor or sensory deficits noted Skin: Intact with no visualized rashes Psych: Normal affect and mood ED course: 81-year-old male presents to emergency department with clinical presentation concerning for strangulate umbilical hernia. Vital signs upon arrival are within acceptable limits. Patient was here in emergency department 18 days ago for the same issue. However that time he was seen in the emergency department and his hernia was reducible. He followed up with Dr. Bazzi and was instructed that he would likely need to procedure. Told that he would benefit from umbilical hernia repair. Patient is given 1 mg of Dilaudid. Umbilical hernia reduction was attempted however unsuccessful. She reports that when he was seen here 18 days ago that the reduction was fairly quick and easy. With Dr. Massey who is covering for Dr. Bazzi, recommends patient be admitted with plans for possible operative intervention tomorrow. Nephrology and internal medicine was consulted. Patient ordered for maintenance IV fluids and IV analgesics. - Related Data Home Medications Medication Instructions Recorded Confirmed ALPRAZolam [Xanax] 0.25 mg PO DAILY PRN 09/09/18 05/11/21 buPROPion HCL [Wellbutrin SR] 150 mg PO BID 09/09/18 05/11/21 carvediloL 25 mg PO BID 09/09/18 05/11/21 Cholecalciferol [Vitamin D3 (25 50 mcg PO DAILY 02/14/21 05/11/21 Mcg = 1000 Iu)] Ezetimibe [Zetia] 10 mg PO DAILY 02/14/21 05/11/21 Febuxostat 40 mg PO DAILY 02/14/21 05/11/21 Ferrous Sulfate [Iron (65 MG 325 mg PO DAILY 02/14/21 05/11/21 Elemental)] Furosemide [Lasix] 40 mg PO DAILY PRN 02/14/21 05/11/21 Ondansetron [Zofran] 4 mg PO Q8HR PRN 03/17/21 05/11/21 Sodium Bicarbonate Tab 650 mg PO BID 03/17/21 05/11/21 amLODIPine BESYLATE 10 mg PO HS 03/17/21 05/11/21 Previous Rx's Medication Instructions Recorded Aspirin 81 mg PO DAILY #30 chew 02/15/21 hydrALAZINE HCL [Apresoline] 75 mg PO TID #90 tab 02/15/21 Allergies Allergy/AdvReac Type Severity Reaction Status Date / Time Penicillins Allergy Unknown Verified 02/06/22 18:41 Childhood Review of Systems ROS Statement: Those systems with pertinent positive or pertinent negative responses have been documented in the HPI. ROS Other: All systems not noted in ROS Statement are negative. Past Medical History Past Medical History: CVA/TIA, Hyperlipidemia, Hypertension, Renal Disease Additional Past Medical History / Comment(s): Polycystic kidney disease, CKD, nephrolithiasis, anemia, ?TIA (January 2020). , hx gout., tinnitus, hearing loss., SOB. History of Any Multi-Drug Resistant Organisms: None Reported Past Surgical History: Hernia Repair Additional Past Surgical History / Comment(s): Umbilical hernia, hernia repair as an infant, lasik eye surgery Past Anesthesia/Blood Transfusion Reactions: Motion Sickness, Postoperative Nausea & Vomiting (PONV) Past Psychological History: Anxiety, Depression Smoking Status: Former smoker Past Alcohol Use History: None Reported Past Drug Use History: None Reported - Past Family History Mother Family Medical History: Renal Disease Additional Family Medical History / Comment(s): Polycystic kidney disease. Father Family Medical History: CVA/TIA Additional Family Medical History / Comment(s): Father is . He had a CVA. General Exam Limitations: no limitations Course Vital Signs 02/25/22 19:00 Temperature 98.2 F Pulse Rate 67 Respiratory 18 Rate Blood Pressure 149/94 O2 Sat by Pulse 98 Oximetry Disposition Clinical Impression: Incarcerated hernia Disposition: ADMITTED IP TO THIS [facility] Condition: Serious Referrals: Pop Quiles DO [Primary Care Provider] - 1-2 days Decision Time: 20:01
[2022-02-25] MEDS ORDERED: NALOXONE 0.4 MG/ML 1 ML VIAL IV PRN (19:47)
[2022-02-25] MEDS ORDERED: HYDROmorphone 1 MG/ML 1 ML SYRINGE IVP PRN (19:47)
[2022-02-25] MEDS ORDERED: ONDANSETRON 4 MG/2 ML VIAL IVP PRN (19:47)
[2022-02-25 20:17] LABS: Basophils # (A) 0.1 k/uL (0-0.2); Basophils % (A) 1 %; Eosinophils # (A) 0.3 k/uL (0-0.7); Eosinophils % (A) 4 %; HCT 38.5 % (39.0-53.0); HGB 12.8 gm/dL (13.0-17.5); Lymphocytes # (A) 1.5 k/uL (1.0-4.8); Lymphocytes % (A) 20 %; MCH 31.1 pg (25.0-35.0); MCHC 33.3 g/dL (31.0-37.0); MCV 93.3 fL (80.0-100.0); Mean Platelet Volume 8.6; Monocytes # (A) 0.5 k/uL (0-1.0); Monocytes % (A) 7 %; Neutrophils # (A) 4.8 k/uL (1.3-7.7); Neutrophils % (A) 66 %; Platelet Count 227 k/uL (150-450); RBC 4.12 m/uL (4.30-5.90); RDW 15.5 % (11.5-15.5); WBC 7.2 k/uL (3.8-10.6)
[2022-02-25 20:26] LABS: Albumin 4.2 g/dL (3.5-5.0); Calcium 9.2 mg/dL (8.4-10.2); Potassium 5.7 mmol/L (3.5-5.1); Total Bilirubin 0.4 mg/dL (0.2-1.3); Total Protein 6.7 g/dL (6.3-8.2)
[2022-02-25 20:32] LABS: Partial Thromboplastin Time 22.4 sec (22.0-30.0); Prothrombin Time 10.5 sec (9.0-12.0)
[2022-02-25] MEDS: SODIUM CHLORIDE 0.9% 1,000 ML IV SCH (20:33)
--- NOTE | 2022-02-25 21:09 | XR ---
EXAMINATION TYPE: XR abdomen acute w cxr DATE OF EXAM: 02/25/2022 COMPARISON: Chest x-ray 02/14/2021 HISTORY: Strangulated hernia. Pain TECHNIQUE: 4 view FINDINGS: Heart and mediastinum are normal. There is a large hiatal hernia. There is no sign of intestinal obstruction or pneumoperitoneum. Fecal pattern is normal. There is apparent peritoneal catheter looped in the left lower quadrant. No calcifications seen over the kidneys. No evidence of abdominal mass. IMPRESSION: Nonacute abdomen. No active cardio primary disease. Large hiatal hernia is increased comp ared to old chest x-ray.
[2022-02-25] MEDS ORDERED: SODIUM ZIRCONIUM CYCLOSILICATE 10 GM PACKET PO ONE (22:28)
[2022-02-25] MEDS ORDERED: lisinopriL 20 MG TAB PO SCH (23:30)
[2022-02-25] MEDS: carvediloL 12.5 MG TAB PO SCH (23:45)
[2022-02-26 07:55] VITALS: BP 112/69; PULSE 62; RESP 18; TEMP 98.4
[2022-02-26] MEDS: carvediloL 12.5 MG TAB PO SCH (07:55)
[2022-02-26] MEDS: SODIUM CHLORIDE 0.9% 1,000 ML IV SCH ×2 (07:58→09:49)
[2022-02-26] MEDS ORDERED: SEVELAMER 800 MG TAB PO PRN (08:24)
[2022-02-26] MEDS ORDERED: ALPRAZolam 0.25 MG TAB PO PRN (08:24)
[2022-02-26] MEDS ORDERED: SODIUM BICARBONATE TAB 650 MG TAB PO SCH (09:00)
[2022-02-26] MEDS ORDERED: amLODIPine 10 MG TAB PO SCH (09:00)
[2022-02-26] MEDS ORDERED: CHOLECALCIFEROL 25 MCG (1000 IU) TABLET PO SCH (09:00)
[2022-02-26] MEDS ORDERED: FOLIC ACID-VIT B COMPLEX-VIT C 1 CAP PO SCH (09:00)
[2022-02-26 09:23] LABS: HCT 35.5 % (39.0-53.0); HGB 11.3 gm/dL (13.0-17.5); MCH 30.4 pg (25.0-35.0); Mean Platelet Volume 8.4; Platelet Count 178 k/uL (150-450); RBC 3.73 m/uL (4.30-5.90); RDW 15.4 % (11.5-15.5); WBC 5.1 k/uL (3.8-10.6)
[2022-02-26 09:53] LABS: ALT 16 U/L (4-49); AST 17 U/L (17-59); African American GFR (CKD) 9 (>60 ml/min/1.73 sqM); Albumin 3.3 g/dL (3.5-5.0); Albumin/Globulin Ratio 1.4; Alkaline Phosphatase 51 U/L (38-126); Anion Gap 11 mmol/L; Blood Urea Nitrogen 57 mg/dL (9-20); Calcium 8.6 mg/dL (8.4-10.2); Carbon Dioxide 16 mmol/L (22-30); Chloride 111 mmol/L (98-107); Globulin 2.3 g/dL; Glucose 90 mg/dL (74-99); Magnesium 2.5 mg/dL (1.6-2.3); Non-African American GFR(CKD) 7 (>60 ml/min/1.73 sqM); Potassium 5.3 mmol/L (3.5-5.1); Sodium 138 mmol/L (137-145); Total Bilirubin 0.4 mg/dL (0.2-1.3); Total Protein 5.6 g/dL (6.3-8.2)
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
--- NOTE | 2022-02-26 11:55 | P.GSHP ---
History of Present Illness H&P Date: 02/26/22 REASON FOR ADMISSION: Incarcerated incisional hernia with bowel obstruction HISTORY OF PRESENT ILLNESS: The patient is a 51 year old male with end-stage renal disease due to polycystic kidney disease and on peritoneal dialysis reports recurrent incisional hernia repair March of last year now almost 1 year ago. Patient did see his surgeon 2 weeks ago and was advised for observation for any further recurrence. Patient reports developing abdominal pain 2 days ago with inability to have a bowel movement or pass flatus. He reports severe abdominal pain at the epigastrium from the hernia site and presented to emergency room last night. Emergency room provider was unable to reduce the hernia despite attempts. Patient was admitted for urgent surgical intervention. This morning, patient reports his hernia had spontaneously reduced. He is able to pass flatus and had a bowel movement. 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 Patient was cleared to have a renal diet which he tolerated. He is comfortable. Abdominal pain has resolved. PAST MEDICAL HISTORY: See list and reviewed PAST SURGICAL HISTORY: See list and reviewed MEDICATIONS: See list and reviewed ALLERGIES: See list and reviewed SOCIAL HISTORY: See list and reviewed FAMILY HISTORY: See list and reviewed REVIEW OF ORGAN SYSTEMS: CONSTITUTIONAL: No fevers or chills. No recent weight loss. EYES: Denies any trouble with vision. No glasses. HEENT: Has tinnitus with mild hearing loss. No nosebleeds. No difficulty swallowing. RESPIRATORY: Denies pneumonia. Past tobacco use. CARDIOVASCULAR: Denies any chest pain, palpitations, or recent heart attacks. Has hypertensive heart disease. He has hyperlipidemia. GASTROINTESTINAL: Recent bowel obstruction now spontaneously resolved following spontaneous hernia reduction. Has postop nausea vomiting. GENITOURINARY: On peritoneal dialysis including polycystic kidney disease. NEUROLOGICAL: Denies any numbness or tingling along the distal extremities. No seizure disorders or headaches. MUSCULOSKELETAL: Has back pain, stiffness or joint arthritis. Has gout. SKIN: No current skin cancer. No rash. PSYCHIATRIC: Has depression or suicidal thoughts. Has anxiety. ENDOCRINE: Denies current thyroid disorders. Denies any blood sugar glucose intolerance. HEME/LYMPHATIC: Denies any lumps and bumps around the neck. No recent deep venous thrombosis. His iron deficiency anemia. ALLERGY/IMMUNOLOGY: No immunoglobulin therapy. No immune deficiencies. BREAST: Denies current breast lumps, pain or nipple discharge. PHYSICAL EXAM: VITALS: Reviewed CONSTITUTIONAL: Well developed and in no acute distress. EYES: Conjuctivae without sclera icterus. Extraocular movements grossly intact. HEAD, EARS, NOSE, THROAT: Moist buccal mucosa. Head is atraumatic, normocephalic. Hears conversational speech. No nasal drainage. NECK: Supple. No JV distention. No thyroidomegaly. RESPIRATORY: Non-labored respirations and equal bilateral excursions. No gross wheezes. CARDIOVASCULAR: Palpable 2+ radial pulses. ABDOMEN: Completely reduced hernia. Well-healed upper midline incision. Peritoneal dialysis clean dry and intact. No skin changes. Present peritoneal fluid. Nontender. No peritonitis. LYMPH: No neck lymphadenopathy. MUSCULOSKELETAL: Nail and fingers with good capillary refill. SKIN: Warm and well perfused with good skin turgor. NEUROLOGIC: Cranial nerves II through XII grossly intact. No focal or lateralizing signs. PSYCH: Appropriate affect. Alert and oriented to person, place and time. Displays appropriate insight. CLINCAL LABS: Reviewed. WBC 5.1 and normal. Creatinine 7.89 down to 7.60, elevated. Hemoglobin down 12.8-11.3. Potassium 5.7-5.3 with hyperkalemia. IMAGING: Independently reviewed. Abdominal x-ray demonstrates few air-fluid levels. No free air. This is my independent interpretation. RADIOLOGY: Report reviewed abdominal x-ray demonstrates nonspecific bowel gas pattern with hiatal hernia. RECORDS: previous old records reviewed from March 2021 CT of the abdomen and pelvis demonstrated bowel containing ventral hernia with bowel obstruction. Additionally large intrathoracic hiatal hernia identified. ASSESSMENT: 1. Incarcerated recurrent incisional hernia with bowel obstruction 2. End-stage renal disease, peritoneal dialysis 3. Hyperkalemia 4. Diaphragmatic hiatal hernia PLAN: 1. Surgical options were reviewed where surgical intervention may be perform on semiurgent elective basis. Patient had elected for discharge home as he has tolerated diet. 2. Per instruction of nephrology, peritoneal dialysis prior to discharge. 3. Follow up with his surgeon regarding surgical intervention. 4. Patient advised for any immediate recurrence will require surgical intervention. ADVANCE DIRECTIVE: Thank you for this kind consultation. Past Medical History Past Medical History: CVA/TIA, Hyperlipidemia, Hypertension, Renal Disease Additional Past Medical History / Comment(s): Polycystic kidney disease, CKD, nephrolithiasis, anemia, ?TIA (January 2020). , hx gout., tinnitus, hearing loss., SOB. History of Any Multi-Drug Resistant Organisms: None Reported Past Surgical History: Hernia Repair Additional Past Surgical History / Comment(s): Umbilical hernia, hernia repair as an , lasik eye surgery Past Anesthesia/Blood Transfusion Reactions: Motion Sickness, Postoperative Nausea & Vomiting (PONV) Past Psychological History: Anxiety, Depression Smoking Status: Former smoker Past Alcohol Use History: None Reported Additional Past Alcohol Use History / Comment(s): Pt started smoking in 1984 and quit in 1995., occasional cigar Past Drug Use History: None Reported - Past Family History Mother Family Medical History: Renal Disease Additional Family Medical History / Comment(s): Polycystic kidney disease. Father Family Medical History: CVA/TIA Additional Family Medical History / Comment(s): Father is . He had a CVA. Medications and Allergies Home Medications Medication Instructions Recorded Confirmed Type ALPRAZolam [Xanax] 0.25 mg PO DAILY PRN 09/09/18 02/25/22 History carvediloL 25 mg PO BID 09/09/18 02/25/22 History Cholecalciferol [Vitamin D3 (25 50 mcg PO DAILY 02/14/21 02/25/22 History Mcg = 1000 Iu)] Ezetimibe [Zetia] 10 mg PO HS 02/14/21 02/25/22 History Ferrous Sulfate [Iron (65 MG 325 mg PO HS 02/14/21 02/25/22 History Elemental)] Ondansetron [Zofran] 4 mg PO Q8H PRN 03/17/21 02/25/22 History Sodium Bicarbonate Tab 650 mg PO DAILY 03/17/21 02/25/22 History amLODIPine BESYLATE 10 mg PO DAILY 03/17/21 02/25/22 History Elizabeth-Isabela 1 tab PO DAILY 02/25/22 02/25/22 History Sevelamer [Renvela] 1,600 mg PO TID-W/MEALS 02/25/22 02/25/22 History Sevelamer [Renvela] 800 mg PO DAILY PRN 02/25/22 02/25/22 History lisinopriL [Prinivil] 20 mg PO HS 02/25/22 02/25/22 History Allergies Allergy/AdvReac Type Severity Reaction Status Date / Time Penicillins Allergy Unknown Verified 02/25/22 20:10 Childhood Surgical - Exam Vital Signs Temp Pulse Resp BP Pulse Ox 98.2 F 67 18 149/94 98 02/25/22 19:00 02/25/22 19:00 02/25/22 19:00 02/25/22 19:00 02/25/22 19:00 Results - Labs 02/26/22 08:53 02/26/22 08:53 Abnormal Lab Results - Last 24 Hours (Table) 02/25/22 02/25/22 02/25/22 Range/Units 20:00 20:00 20:00 RBC 4.12 L (4.30-5.90) m/uL Hgb 12.8 L (13.0-17.5) gm/dL Hct 38.5 L (39.0-53.0) % Potassium 5.7 H (3.5-5.1) mmol/L Chloride 110 H (98-107) mmol/L Carbon Dioxide 17 L (22-30) mmol/L BUN 57 H (9-20) mg/dL Creatinine 7.89 H* (0.66-1.25) mg/dL Plasma Lactic Acid Real 0.5 L (0.7-2.0) mmol/L Magnesium (1.6-2.3) mg/dL Total Protein (6.3-8.2) g/dL Albumin (3.5-5.0) g/dL 02/26/22 02/26/22 Range/Units 08:53 08:53 RBC 3.73 L (4.30-5.90) m/uL Hgb 11.3 L (13.0-17.5) gm/dL Hct 35.5 L (39.0-53.0) % Potassium 5.3 H (3.5-5.1) mmol/L Chloride 111 H (98-107) mmol/L Carbon Dioxide 16 L (22-30) mmol/L BUN 57 H (9-20) mg/dL Creatinine 7.60 H* (0.66-1.25) mg/dL Plasma Lactic Acid Real (0.7-2.0) mmol/L Magnesium 2.5 H (1.6-2.3) mg/dL Total Protein 5.6 L (6.3-8.2) g/dL Albumin 3.3 L (3.5-5.0) g/dL Diabetes panel 02/25/22 02/26/22 Range/Units 20:00 08:53 Sodium 138 138 (137-145) mmol/L Potassium 5.7 H 5.3 H (3.5-5.1) mmol/L Chloride 110 H 111 H (98-107) mmol/L Carbon Dioxide 17 L 16 L (22-30) mmol/L BUN 57 H 57 H (9-20) mg/dL Creatinine 7.89 H* 7.60 H* (0.66-1.25) mg/dL Glucose 91 90 (74-99) mg/dL Calcium 9.2 8.6 (8.4-10.2) mg/dL AST 20 17 (17-59) U/L ALT 19 16 (4-49) U/L Alkaline Phosphatase 60 51 (38-126) U/L Total Protein 6.7 5.6 L (6.3-8.2) g/dL Albumin 4.2 3.3 L (3.5-5.0) g/dL Calcium panel 02/25/22 02/26/22 Range/Units 20:00 08:53 Calcium 9.2 8.6 (8.4-10.2) mg/dL Albumin 4.2 3.3 L (3.5-5.0) g/dL Pituitary panel 02/25/22 02/26/22 Range/Units 20:00 08:53 Sodium 138 138 (137-145) mmol/L Potassium 5.7 H 5.3 H (3.5-5.1) mmol/L Chloride 110 H 111 H (98-107) mmol/L Carbon Dioxide 17 L 16 L (22-30) mmol/L BUN 57 H 57 H (9-20) mg/dL Creatinine 7.89 H* 7.60 H* (0.66-1.25) mg/dL Glucose 91 90 (74-99) mg/dL Calcium 9.2 8.6 (8.4-10.2) mg/dL Adrenal panel 02/25/22 02/26/22 Range/Units 20:00 08:53 Sodium 138 138 (137-145) mmol/L Potassium 5.7 H 5.3 H (3.5-5.1) mmol/L Chloride 110 H 111 H (98-107) mmol/L Carbon Dioxide 17 L 16 L (22-30) mmol/L BUN 57 H 57 H (9-20) mg/dL Creatinine 7.89 H* 7.60 H* (0.66-1.25) mg/dL Glucose 91 90 (74-99) mg/dL Calcium 9.2 8.6 (8.4-10.2) mg/dL Total Bilirubin 0.4 0.4 (0.2-1.3) mg/dL AST 20 17 (17-59) U/L ALT 19 16 (4-49) U/L Alkaline Phosphatase 60 51 (38-126) U/L Total Protein 6.7 5.6 L (6.3-8.2) g/dL Albumin 4.2 3.3 L (3.5-5.0) g/dL
[2022-02-26] MEDS ORDERED: DIALYSIS (PERIT 1.5%) 2,000 ML 30 G/2,000 ML BAG INTRAPERIT SCH (12:00)
[2022-02-26] MEDS ORDERED: SEVELAMER 800 MG TAB PO SCH (12:30)
--- NOTE | 2022-02-26 15:52 | P.CONS ---
History of Present Illness - Reason for Consult Consult date: 02/26/22 Medical Management Requesting physician: Jessica Massey - Chief Complaint Abdominal Pain - History of Present Illness History of Presenting Illness: Patient is a very pleasant 51-year-old male with a past medical history of stage IV chronic kidney disease secondary to polycystic kidney disease on peritoneal dialysis, hypertension, hyperlipidemia, history of TIA, and anxiety. Patient presented to the emergency department 02/25/22 with a chief complaint of abdominal pain and protrusion of hernia. He underwent full evaluation in the emergency department.abdominal x-ray revealing nonacute abdomen with large hiatal hernia.. CBC showing mild normocytic normochromic anemia with hemoglobin of 12.8. Coags normal findings. CMP revealing hyperkalemia with potassium of 5.7 hyperchloremia with chloride of 110, hypocarbia with bicarbonate 17, BUN 57, creatinine 7.89, and GFR of 7. EKG revealing normal sinus rhythm at 67 bpm with slightly peaked T waves. Patient received 1 dose of Lokelma in the ER for treatment of hyperkalemia. ER physician made attempts at reducing hernia and was unsuccessful. Patient admitted under Gen. surgery team secondary to incarcerated hernia and we have been consulted for continued medical management throughout patient's hospitalization. patient was seen and fully evaluated at bedside this morning. He reports that upon awakening this morning he noticed that his hernia reduced on its own and his abdominal pain has resolved. Patient also reports to missing 2 days of peritoneal dialysis at home stating his power went out on Sunday and due to the pain he was unable to complete Sunday. At time of assessment patient currently denying any complaints including headache, lightheadedness, dizziness, chest pain, palpitations, shortness of breath, nausea, vomiting, or experiencing any numbness/tingling/weakness in his extremities. Review of systems: Pertinent positives and negatives as discussed in HPI, a complete review of systems was performed and all other systems are negative. Physical exam: Vital signs reviewed and stable. General: Nontoxic, no distress and appears stated age. Derm: Skin warm and dry, normal coloration for ethnicity. Head: Atraumatic, normocephalic and symmetric. Eyes: EOMs intact, no lid lag, and anicteric sclera Mouth: no lip lesions, mucus membranes moist Cardiovascular: regular rate and rhythm with normal S1S2, no murmur, positive posterior tibial pulses bilaterally, and cap refill < 2 seconds. Lungs: Respirations even, regular, and unlabored on room air. Lungs CTA bilaterally, no rhonchi, no rales, no wheezing, and no accessory muscle usage. Abdominal: soft, nontender to palpation, no guarding, no appreciable organomegaly Ext: ROM intact. No gross muscle atrophy, no edema, no contractures Neuro: Speech clear, face symmetrical and CN II-XII grossly intact with no noted focal neuro deficits Psych: Alert and oriented to person, place, time, and situation. Appropriate and pleasant affect. Assessment and Plan of Care: Hyperkalemia End-stage renal disease on peritoneal dialysis, missed 2 days of dialysis -Patient missed 2 peritoneal dialysis treatments. -Nephrology following. -Patient to remain on telemetry monitoring and we will continue to monitor electrolytes closely. -We will treat hyperkalemia as needed, recommend continuing peritoneal dialysis as soon as possible. Repeat potassium improved to 5.3. -Continue daily medication regimen with sodium bicarb tabs 650 mg daily. Incarcerated incisional hernia with bowel obstruction -Management per primary admitting general surgery team including surgical management, DVT prophylaxis, and pain management. Hypertension Monitor vital signs and continue daily medication regimen with amlodipine, carvedilol, and lisinopril. Thank you for allowing us to participate in the care of this pleasant patient. Do not hesitate to contact us with questions. Someone can be reached from the [facility] hospitalist group all hours of the day at [phone] or via [employer]. I reviewed the documentation as provided by the THOMAS above, who is the original author of this note. I agree with the documented assessment and plan, with the following changes: None Past Medical History Past Medical History: CVA/TIA, Hyperlipidemia, Hypertension, Renal Disease Additional Past Medical History / Comment(s): Polycystic kidney disease, CKD, nephrolithiasis, anemia, ?TIA (January 2020). , hx gout., tinnitus, hearing loss., SOB. History of Any Multi-Drug Resistant Organisms: None Reported Past Surgical History: Hernia Repair Additional Past Surgical History / Comment(s): Umbilical hernia, hernia repair as an , lasik eye surgery Past Anesthesia/Blood Transfusion Reactions: Motion Sickness, Postoperative Nausea & Vomiting (PONV) Past Psychological History: Anxiety, Depression Smoking Status: Former smoker Past Alcohol Use History: None Reported Additional Past Alcohol Use History / Comment(s): Pt started smoking in 1984 and quit in 1995., occasional cigar Past Drug Use History: None Reported - Past Family History Mother Family Medical History: Renal Disease Additional Family Medical History / Comment(s): Polycystic kidney disease. Father Family Medical History: CVA/TIA Additional Family Medical History / Comment(s): Father is . He had a CVA. Medications and Allergies Home Medications Medication Instructions Recorded Confirmed Type ALPRAZolam [Xanax] 0.25 mg PO DAILY PRN 09/09/18 02/25/22 History carvediloL 25 mg PO BID 09/09/18 02/25/22 History Cholecalciferol [Vitamin D3 (25 50 mcg PO DAILY 02/14/21 02/25/22 History Mcg = 1000 Iu)] Ezetimibe [Zetia] 10 mg PO HS 02/14/21 02/25/22 History Ferrous Sulfate [Iron (65 MG 325 mg PO HS 02/14/21 02/25/22 History Elemental)] Ondansetron [Zofran] 4 mg PO Q8H PRN 03/17/21 02/25/22 History Sodium Bicarbonate Tab 650 mg PO DAILY 03/17/21 02/25/22 History amLODIPine BESYLATE 10 mg PO DAILY 03/17/21 02/25/22 History Elizabeth-Isabela 1 tab PO DAILY 02/25/22 02/25/22 History Sevelamer [Renvela] 1,600 mg PO TID-W/MEALS 02/25/22 02/25/22 History Sevelamer [Renvela] 800 mg PO DAILY PRN 02/25/22 02/25/22 History lisinopriL [Prinivil] 20 mg PO HS 02/25/22 02/25/22 History Allergies Allergy/AdvReac Type Severity Reaction Status Date / Time Penicillins Allergy Unknown Verified 02/25/22 20:10 Childhood Physical Exam Osteopathic Statement: *. No significant issues noted on an osteopathic structu ral exam other than those noted in the History and Physical/Consult. Vitals: Vital Signs Temp Pulse Pulse Resp BP BP Pulse Ox 02/26/22 07:00 98.4 F 62 18 112/69 98 02/26/22 01:12 98.7 F 63 16 139/83 98 02/25/22 19:00 98.2 F 67 18 149/94 98 Intake and Output 02/25/22 02/26/22 02/26/22 22:59 06:59 14:59 Other: Voiding Method Toilet # Voids 2 Weight 104.326 kg Results CBC & Chem 7: 02/26/22 08:53 02/26/22 08:53 Labs: Abnormal Lab Results - Last 24 Hours (Table) 02/25/22 02/25/22 02/25/22 Range/Units 20:00 20:00 20:00 RBC 4.12 L (4.30-5.90) m/uL Hgb 12.8 L (13.0-17.5) gm/dL Hct 38.5 L (39.0-53.0) % Potassium 5.7 H (3.5-5.1) mmol/L Chloride 110 H (98-107) mmol/L Carbon Dioxide 17 L (22-30) mmol/L BUN 57 H (9-20) mg/dL Creatinine 7.89 H* (0.66-1.25) mg/dL Plasma Lactic Acid Real 0.5 L (0.7-2.0) mmol/L
[2022-02-26] MEDS ORDERED: EZETIMIBE 10 MG TAB PO SCH (21:00)
[2022-02-26] MEDS ORDERED: FERROUS SULFATE 325 MG TAB PO SCH (21:00)
--- NOTE | 2022-02-28 15:38 | P.DS ---
Providers Date of admission: 02/25/22 19:47 Expected date of discharge: 02/26/22 Attending physician: Jessica Massey Consults: 02/25/22 19:49 Consult Physician Routine Consulting Provider: Carleen Serrato Consult Reason/Comments: peritoneal dialysis Do you want consulting provider notified?: Yes 02/25/22 19:50 Consult Physician Routine Consulting Provider: Merline Butler Consult Reason/Comments: medicine consult Do you want consulting provider notified?: Yes Primary care physician: [facility] Course: REASON FOR ADMISSION: Incarcerated incisional hernia with bowel obstruction HISTORY OF PRESENT ILLNESS: The patient is a 51 year old male with end-stage renal disease due to polycystic kidney disease and on peritoneal dialysis reports recurrent incisional hernia repair March of last year now almost 1 year ago. Patient did see his surgeon 2 weeks ago and was advised for observation for any further recurrence. Patient reports developing abdominal pain 2 days ago with inability to have a bowel movement or pass flatus. He reports severe abdominal pain at the epigastrium from the hernia site and presented to emergency room last night. Emergency room provider was unable to reduce the hernia despite attempts. Patient was admitted for urgent surgical intervention. This morning, patient reports his hernia had spontaneously reduced. He is able to pass flatus and had a bowel movement. Patient had been seen by his brown stock washer for which peritoneal dialysis is advised prior to discharge. Patient was cleared to have a renal diet which he tolerated. He is comfortable. Abdominal pain has resolved. PAST MEDICAL HISTORY: See list and reviewed PAST SURGICAL HISTORY: See list and reviewed MEDICATIONS: See list and reviewed ALLERGIES: See list and reviewed SOCIAL HISTORY: See list and reviewed FAMILY HISTORY: See list and reviewed REVIEW OF ORGAN SYSTEMS: CONSTITUTIONAL: No fevers or chills. No recent weight loss. EYES: Denies any trouble with vision. No glasses. HEENT: Has tinnitus with mild hearing loss. No nosebleeds. No difficulty swallowing. RESPIRATORY: Denies pneumonia. Past tobacco use. CARDIOVASCULAR: Denies any chest pain, palpitations, or recent heart attacks. Has hypertensive heart disease. He has hyperlipidemia. GASTROINTESTINAL: Recent bowel obstruction now spontaneously resolved following spontaneous hernia reduction. Has postop nausea vomiting. GENITOURINARY: On peritoneal dialysis including polycystic kidney disease. NEUROLOGICAL: Denies any numbness or tingling along the distal extremities. No seizure disorders or headaches. MUSCULOSKELETAL: Has back pain, stiffness or joint arthritis. Has gout. SKIN: No current skin cancer. No rash. PSYCHIATRIC: Has depression or suicidal thoughts. Has anxiety. ENDOCRINE: Denies current thyroid disorders. Denies any blood sugar glucose intolerance. HEME/LYMPHATIC: Denies any lumps and bumps around the neck. No recent deep venous thrombosis. His iron deficiency anemia. ALLERGY/IMMUNOLOGY: No immunoglobulin therapy. No immune deficiencies. BREAST: Denies current breast lumps, pain or nipple discharge. PHYSICAL EXAM: VITALS: Reviewed CONSTITUTIONAL: Well developed and in no acute distress. EYES: Conjuctivae without sclera icterus. Extraocular movements grossly intact. HEAD, EARS, NOSE, THROAT: Moist buccal mucosa. Head is atraumatic, normocephalic. Hears conversational speech. No nasal drainage. NECK: Supple. No JV distention. No thyroidomegaly. RESPIRATORY: Non-labored respirations and equal bilateral excursions. No gross wheezes. CARDIOVASCULAR: Palpable 2+ radial pulses. ABDOMEN: Completely reduced hernia. Well-healed upper midline incision. Peritoneal dialysis clean dry and intact. No skin changes. Present peritoneal fluid. Nontender. No peritonitis. LYMPH: No neck lymphadenopathy. MUSCULOSKELETAL: Nail and fingers with good capillary refill. SKIN: Warm and well perfused with good skin turgor. NEUROLOGIC: Cranial nerves II through XII grossly intact. No focal or lateralizing signs. PSYCH: Appropriate affect. Alert and oriented to person, place and time. Displays appropriate insight. CLINCAL LABS: Reviewed. WBC 5.1 and normal. Creatinine 7.89 down to 7.60, elevated. Hemoglobin down 12.8-11.3. Potassium 5.7-5.3 with hyperkalemia. IMAGING: Independently reviewed. Abdominal x-ray demonstrates few air-fluid levels. No free air. This is my independent interpretation. RADIOLOGY: Report reviewed abdominal x-ray demonstrates nonspecific bowel gas pattern with hiatal hernia. RECORDS: previous old records reviewed from March 2021 CT of the abdomen and pelvis demonstrated bowel containing ventral hernia with bowel obstruction. Additionally large intrathoracic hiatal hernia identified. ASSESSMENT: 1. Incarcerated recurrent incisional hernia with bowel obstruction 2. End-stage renal disease, peritoneal dialysis 3. Hyperkalemia 4. Diaphragmatic hiatal hernia PLAN: 1. Surgical options were reviewed where surgical intervention may be perform on semiurgent elective basis. Patient had elected for discharge home as he has tolerated diet. 2. Per instruction of nephrology, peritoneal dialysis prior to discharge. 3. Follow up with his surgeon regarding surgical intervention. 4. Patient advised for any immediate recurrence will require surgical intervention. ADDED REASON FOR ADMISSION: Incarcerated incisional hernia with bowel obstruction HISTORY OF PRESENT ILLNESS: The patient is a 51 year old male with end-stage renal disease due to polycystic kidney disease and on peritoneal dialysis reports recurrent incisional hernia repair March of last year now almost 1 year ago. Patient did see his surgeon 2 weeks ago and was advised for observation for any further recurrence. Patient reports developing abdominal pain 2 days ago with inability to have a bowel movement or pass flatus. He reports severe abdominal pain at the epigastrium from the hernia site and presented to emergency room last night. Emergency room provider was unable to reduce the hernia despite attempts. Patient was admitted for urgent surgical intervention. This morning, patient reports his hernia had spontaneously reduced. He is able to pass flatus and had a bowel movement. Patient had been seen by his brown stock washer for which peritoneal dialysis is advised prior to discharge. Patient was cleared to have a renal diet which he tolerated. He is comfortable. Abdominal pain has resolved. PAST MEDICAL HISTORY: See list and reviewed PAST SURGICAL HISTORY: See list and reviewed MEDICATIONS: See list and reviewed ALLERGIES: See list and reviewed SOCIAL HISTORY: See list and reviewed FAMILY HISTORY: See list and reviewed REVIEW OF ORGAN SYSTEMS: CONSTITUTIONAL: No fevers or chills. No recent weight loss. EYES: Denies any trouble with vision. No glasses. HEENT: Has tinnitus with mild hearing loss. No nosebleeds. No difficulty swallowing. RESPIRATORY: Denies pneumonia. Past tobacco use. CARDIOVASCULAR: Denies any chest pain, palpitations, or recent heart attacks. Has hypertensive heart disease. He has hyperlipidemia. GASTROINTESTINAL: Recent bowel obstruction now spontaneously resolved following spontaneous hernia reduction. Has postop nausea vomiting. GENITOURINARY: On peritoneal dialysis including polycystic kidney disease. NEUROLOGICAL: Denies any numbness or tingling along the distal extremities. No seizure disorders or headaches. MUSCULOSKELETAL: Has back pain, stiffness or joint arthritis. Has gout. SKIN: No current skin cancer. No rash. PSYCHIATRIC: Has depression or suicidal thoughts. Has anxiety. ENDOCRINE: Denies current thyroid disorders. Denies any blood sugar glucose intolerance. HEME/LYMPHATIC: Denies any lumps and bumps around the neck. No recent deep venous thrombosis. His iron deficiency anemia. ALLERGY/IMMUNOLOGY: No immunoglobulin therapy. No immune deficiencies. BREAST: Denies current breast lumps, pain or nipple discharge. PHYSICAL EXAM: VITALS: Reviewed CONSTITUTIONAL: Well developed and in no acute distress. EYES: Conjuctivae without sclera icterus. Extraocular movements grossly intact. HEAD, EARS, NOSE, THROAT: Moist buccal mucosa. Head is atraumatic, normocephalic. Hears conversational speech. No nasal drainage. NECK: Supple. No JV distention. No thyroidomegaly. RESPIRATORY: Non-labored respirations and equal bilateral excursions. No gross wheezes. CARDIOVASCULAR: Palpable 2+ radial pulses. ABDOMEN: Completely reduced hernia. Well-healed upper midline incision. Peritoneal dialysis clean dry and intact. No skin changes. Present peritoneal fluid. Nontender. No peritonitis. LYMPH: No neck lymphadenopathy. MUSCULOSKELETAL: Nail and fingers with good capillary refill. SKIN: Warm and well perfused with good skin turgor. NEUROLOGIC: Cranial nerves II through XII grossly intact. No focal or lateralizing signs. PSYCH: Appropriate affect. Alert and oriented to person, place and time. Displays appropriate insight. CLINCAL LABS: Reviewed. WBC 5.1 and normal. Creatinine 7.89 down to 7.60, elevated. Hemoglobin down 12.8-11.3. Potassium 5.7-5.3 with hyperkalemia. IMAGING: Independently reviewed. Abdominal x-ray demonstrates few air-fluid levels. No free air. This is my independent interpretation. RADIOLOGY: Report reviewed abdominal x-ray demonstrates nonspecific bowel gas pattern with hiatal hernia. RECORDS: previous old records reviewed from March 2021 CT of the abdomen and pelvis demonstrated bowel containing ventral hernia with bowel obstruction. Additionally large intrathoracic hiatal hernia identified. ASSESSMENT: 1. Incarcerated recurrent incisional hernia with bowel obstruction 2. End-stage renal disease, peritoneal dialysis 3. Hyperkalemia 4. Diaphragmatic hiatal hernia PLAN: 1. Surgical options were reviewed where surgical intervention may be perform on semiurgent elective basis. Patient had elected for discharge home as he has tolerated diet. 2. Per instruction of nephrology, peritoneal dialysis prior to discharge. 3. Follow up with his surgeon regarding surgical intervention. 4. Patient advised for any immediate recurrence will require surgical intervention. ADDENDUM: Same day discharge as symptoms resolved. Patient Condition at Discharge: Serious Plan - Discharge Summary New Discharge Prescriptions: Continue ALPRAZolam [Xanax] 0.25 mg PO DAILY PRN PRN Reason: Anxiety carvediloL 25 mg PO BID amLODIPine BESYLATE 10 mg PO DAILY Ondansetron [Zofran] 4 mg PO Q8H PRN PRN Reason: Nausea Elizabeth-Isabela 1 tab PO DAILY Sevelamer [Renvela] 800 mg PO DAILY PRN PRN Reason: snacks Ferrous Sulfate [Iron (65 MG Elemental)] 325 mg PO HS Cholecalciferol [Vitamin D3 (25 Mcg = 1000 Iu)] 50 mcg PO DAILY Ezetimibe [Zetia] 10 mg PO HS Sodium Bicarbonate Tab 650 mg PO DAILY lisinopriL [Prinivil] 20 mg PO HS Sevelamer [Renvela] 1,600 mg PO TID-W/MEALS Discharge Medication List ALPRAZolam [Xanax] 0.25 mg PO DAILY PRN 09/09/18 [History] carvediloL 25 mg PO BID 09/09/18 [History] Cholecalciferol [Vitamin D3 (25 Mcg = 1000 Iu)] 50 mcg PO DAILY 02/14/21 [History] Ezetimibe [Zetia] 10 mg PO HS 02/14/21 [History] Ferrous Sulfate [Iron (65 MG Elemental)] 325 mg PO HS 02/14/21 [History] Ondansetron [Zofran] 4 mg PO Q8H PRN 03/17/21 [History] Sodium Bicarbonate Tab 650 mg PO DAILY 03/17/21 [History] amLODIPine BESYLATE 10 mg PO DAILY 03/17/21 [History] Elizabeth-Isabela 1 tab PO DAILY 02/25/22 [History] Sevelamer [Renvela] 1,600 mg PO TID-W/MEALS 02/25/22 [History] Sevelamer [Renvela] 800 mg PO DAILY PRN 02/25/22 [History] lisinopriL [Prinivil] 20 mg PO HS 02/25/22 [History] Follow up Appointment(s)/Referral(s): Karan Bazzi MD [Medical Doctor] - 1-2 Days Pop Quiles DO [Primary Care Provider] - 1-2 days Patient Instructions/Handouts: Incisional Hernia (DC) Activity/Diet/Wound Care/Special Instructions: No lifting over [address] Bazzi's office for urgent surgical interve ntion. Discharge Disposition: HOME SELF-CARE
== END 2022-02-26 13:05 | disposition home or self-care (01) | DRG 393 ==
LOC: EC 18:40 → 4SSUR 19:47
PROVIDERS: ADMIT Surgery Plastic and Reconstructive Surgery; ATTEND Surgery Plastic and Reconstructive Surgery
DX: K43.0 Incisional hernia with obstruction, without gangrene (principal); N18.6 End stage renal disease; I12.0 Hypertensive chronic kidney disease with stage 5 chronic kidney disease or end stage renal disease; Q61.3 Polycystic kidney, unspecified; Z53.8 Procedure and treatment not carried out for other reasons; K44.9 Diaphragmatic hernia without obstruction or gangrene; D64.9 Anemia, unspecified; E78.5 Hyperlipidemia, unspecified; E87.5 Hyperkalemia; E87.70 Fluid overload, unspecified; E87.8 Other disorders of electrolyte and fluid balance, not elsewhere classified; F17.290 Nicotine dependence, other tobacco product, uncomplicated; F32.A Depression, unspecified; F41.9 Anxiety disorder, unspecified; H91.90 Unspecified hearing loss, unspecified ear; Z79.82 Long term (current) use of aspirin; Z79.899 Other long term (current) drug therapy; Z82.3 Family history of stroke; Z82.71 Family history of polycystic kidney; Z86.73 Personal history of transient ischemic attack (TIA), and cerebral infarction without residual deficits; Z87.442 Personal history of urinary calculi; Z99.2 Dependence on renal dialysis; Z88.0 Allergy status to penicillin; M10.9 Gout, unspecified; Z87.19 Personal history of other diseases of the digestive system
CPT/HCPCS: 36415; 74022; 80053; 83605; 83735; 85025; 85027; 85610; 85730; 93005; 96361; 96374; 96375; 96376; 99285

== ENCOUNTER 2022-03-10 11:20 | Emergency (ER) | payer MEDICARE, BC ==
[2022-03-10 11:45] VITALS: BP 125/77; PULSE 65; RESP 16; TEMP 98
[2022-03-10] MEDS ORDERED: HYDROmorphone 1 MG/ML 1 ML SYRINGE IVP STA (12:44)
[2022-03-10] MEDS ORDERED: ONDANSETRON 4 MG/2 ML VIAL IVP STA (12:50)
[2022-03-10] MEDS ORDERED: MORPHINE SULFATE 4 MG/ML SYRINGE IVP STA (13:15)
--- NOTE | 2022-03-10 14:03 | ED ---
General Adult HPI - General Chief complaint: Recheck/Abnormal Lab/Rx Stated complaint: Dr Lalito Bazzi/Abd. Pain Source: patient, RN notes reviewed, old records reviewed Mode of arrival: ambulatory Limitations: no limitations - History of Present Illness Initial comments: Patient is a 51-year-old male with past medical history remarkable for ESRD on peritoneal dialysis, TIA, hypertension, renal disease, umbilical hernia status post repair with recurrent episodes of protrusion who presents emergency Department complaining of hernia pain. Believes it may be incarcerated. Has been admitted once in the last month for an incarcerated hernia, as well as seen in additional time for the same hernia that was reduced here in the department. Is due to have surgery next Sunday with Dr. Bazzi. He called Dr. Bazzi's office today, who instructed him to come to the emergency department for evaluation. States it started this morning while he was watching TV. Describes it as a bubble sensation located just above his umbilicus. This is the typical spot for his hernia. Endorses mild nausea but no other acute symptoms at this time. Describes the pain as sharp. Denies diarrhea or change in bowel habits. Presents for further evaluation at this time. - Related Data Home Medications Medication Instructions Recorded Confirmed ALPRAZolam [Xanax] 0.25 mg PO DAILY PRN 09/09/18 02/25/22 carvediloL 25 mg PO BID 09/09/18 02/25/22 Cholecalciferol [Vitamin D3 (25 50 mcg PO DAILY 02/14/21 02/25/22 Mcg = 1000 Iu)] Ezetimibe [Zetia] 10 mg PO HS 02/14/21 02/25/22 Ferrous Sulfate [Iron (65 MG 325 mg PO HS 02/14/21 02/25/22 Elemental)] Ondansetron [Zofran] 4 mg PO Q8H PRN 03/17/21 02/25/22 Sodium Bicarbonate Tab 650 mg PO DAILY 03/17/21 02/25/22 amLODIPine BESYLATE 10 mg PO DAILY 03/17/21 02/25/22 Elizabeth-Isabela 1 tab PO DAILY 02/25/22 02/25/22 Sevelamer [Renvela] 1,600 mg PO TID-W/MEALS 02/25/22 02/25/22 Sevelamer [Renvela] 800 mg PO DAILY PRN 02/25/22 02/25/22 lisinopriL [Prinivil] 20 mg PO HS 02/25/22 02/25/22 Allergies Allergy/AdvReac Type Severity Reaction Status Date / Time Penicillins Allergy Unknown Verified 03/10/22 11:43 Childhood Review of Systems ROS Statement: Those systems with pertinent positive or pertinent negative responses have been documented in the HPI. Review of Systems: CONST: Denies fever EYES: Denies blurry vision ENT: Denies nasal congestion C/V: Denies Chest pain RESP: Denies shortness of breath GI: Endorses hernia pain. : Denies dysuria SKIN: Denies rash. MSK: Denies joint pain. NEURO: Denies headache ROS Other: All systems not noted in ROS Statement are negative. Past Medical History Past Medical History: CVA/TIA, Hyperlipidemia, Hypertension, Renal Disease Additional Past Medical History / Comment(s): Polycystic kidney disease, CKD, nephrolithiasis, anemia, ?TIA (January 2020). , hx gout., tinnitus, hearing loss., SOB. History of Any Multi-Drug Resistant Organisms: None Reported Past Surgical History: Hernia Repair Additional Past Surgical History / Comment(s): Umbilical hernia, hernia repair as an , lasik eye surgery Past Anesthesia/Blood Transfusion Reactions: Motion Sickness, Postoperative Nausea & Vomiting (PONV) Past Psychological History: Anxiety, Depression Smoking Status: Former smoker Past Alcohol Use History: None Reported Past Drug Use History: None Reported - Past Family History Mother Family Medical History: Renal Disease Additional Family Medical History / Comment(s): Polycystic kidney disease. Father Family Medical History: CVA/TIA Additional Family Medical History / Comment(s): Father is . He had a CVA. General Exam - General Exam Comments Initial Comments: General: Appears in mild distress secondary to abdominal pain. HEAD: Normal with no signs of head trauma. EYES: PERRLA, EOMI, conjunctiva normal, no discharge. ENT: Hearing grossly intact, normal oropharynx. RESPIRATORY: Clear breath sounds bilaterally. No wheezes, rales, or rhonchi. C/V: Regular rate and rhythm. S1 and S2 auscultated, no edema, peripheral pulses 2+ and intact throughout ABD: Diminished is overall soft, nondistended. Peritoneal catheter is in place. Site is clean, no signs of infection. Patient has a palpable umbilical hernia that is tender to palpation. No overlying skin changes. No guarding. No peritoneal signs. No rebound tenderness. EXT: Normal range of motion, no obvious deformity SKIN: No rashes or lesions observed on exposed skin. NEURO: Alert and oriented 4. Limitations: no limitations Course Vital Signs 03/10/22 11:43 Temperature 98 F Pulse Rate 65 Respiratory 16 Rate Blood Pressure 125/77 O2 Sat by Pulse 98 Oximetry Medical Decision Making - Medical Decision Making Based on the patient's presentation and physical exam, I'm concerned for possi ble incarcerated hernia. I did speak with Dr. Bazzi over the phone, who recommended attempts at reduction. If this is successful, patient follow up outpatient. Otherwise he recommends imaging and admission. I did discuss this with the patient who was in agreement this plan. He will be given IV analgesia and reduction will be attempted. Hernia reduction was successful. Patient's symptoms resolved. He was observed for a period of time in the department to ensure that his hernia did not become symptomatic again. He was stable. Patient was discharged home after this. He was in agreement this plan. Will follow-up with the surgeon next week. I instructed the patient to follow up with their PCP in the next 3 days. He has an appointment with his surgeon next week.. I explained that the patient should return to the emergency department if they experience any worsening symptoms. Strict return precautions were discussed with the patient. The patient expressed understanding of these instructions. I answered all questions that the patient had. The patient was discharged home in good condition with their prescriptions and follow up information. Disposition Clinical Impression: Hernia of abdominal wall Disposition: HOME SELF-CARE Condition: Good Is patient prescribed a controlled substance at d/c from ED?: No Referrals: Pop Quiles DO [Primary Care Provider] - 1-2 days Time of Disposition: 14:00
== END 2022-03-10 14:42 | disposition home or self-care (01) ==
LOC: EC 11:20
DX: K43.9 Ventral hernia without obstruction or gangrene (principal); I12.0 Hypertensive chronic kidney disease with stage 5 chronic kidney disease or end stage renal disease; N18.6 End stage renal disease; E78.5 Hyperlipidemia, unspecified; M10.9 Gout, unspecified; Z86.73 Personal history of transient ischemic attack (TIA), and cerebral infarction without residual deficits; Z87.891 Personal history of nicotine dependence; Z88.0 Allergy status to penicillin; Z99.2 Dependence on renal dialysis; Z79.899 Other long term (current) drug therapy
CPT/HCPCS: 99283; 96374; 96375; J2270; J2405; J1170

== ENCOUNTER 2022-03-17 09:34 | Day surgery (SDC) | payer MEDICARE, BC ==
[2022-03-16 13:29] VITALS: BMI 29.5
[~2022-03-17 09:34] MED LIST changes: +ACETAMINOPHEN TAB 500 MG TAB PO PRN; +DEXAMETHASONE SOD PHOSPHATE 4 MG/ML 1 ML VIAL IV ONE; +HEPARIN SODIUM,PORCINE/PF 5,000 UNIT/0.5 ML SYRINGE SQ PRN; +HYDROmorphone 0.5 MG/0.5 ML SYRINGE IVP PRN; +LIDOCAINE 1% (10MG/ML) FOR IV START INTRADERMA PRN; +MIDAZOLAM 2 MG/2 ML VIAL IV PRN; +ONDANSETRON 4 MG/2 ML VIAL IVP ONE
[2022-03-17 10:18] LABS: Glucose,Whole Blood 109 mg/dL (70-110)
[2022-03-17] MEDS ORDERED: SODIUM CHLORIDE 0.9% 1,000 ML IV ONE (10:28)
[2022-03-17 10:44] LABS: Basophils # (A) 0.1 k/uL (0-0.2); Basophils % (A) 2 %; Eosinophils # (A) 0.2 k/uL (0-0.7); Eosinophils % (A) 4 %; HCT 37.8 % (39.0-53.0); HGB 12.9 gm/dL (13.0-17.5); Lymphocytes # (A) 0.9 k/uL (1.0-4.8); Lymphocytes % (A) 14 %; MCH 31.7 pg (25.0-35.0); MCHC 34.1 g/dL (31.0-37.0); MCV 92.8 fL (80.0-100.0); Mean Platelet Volume 8.2; Monocytes # (A) 0.4 k/uL (0-1.0); Monocytes % (A) 7 %; Neutrophils # (A) 4.9 k/uL (1.3-7.7); Neutrophils % (A) 73 %; Platelet Count 235 k/uL (150-450); RBC 4.07 m/uL (4.30-5.90); RDW 14.6 % (11.5-15.5); WBC 6.8 k/uL (3.8-10.6)
[2022-03-17 11:28] LABS: Potassium 5.5 mmol/L (3.5-5.1)
[2022-03-17] MEDS ORDERED: TAMSULOSIN 0.4 MG CAP.ER.24H PO ONE (11:40)
[2022-03-17] MEDS ORDERED: fentaNYL (PF) 50 MCG/ML 2 ML AMP ONE (12:00)
[2022-03-17] MEDS ORDERED: PHENYLEPHRINE-0.9% NACL SYG 1,000 MCG/10 ML SYRINGE ONE (12:00)
[2022-03-17] MEDS ORDERED: PROPOFOL 10 MG/ML 20 ML VIAL IV ONE (12:00)
[2022-03-17] MEDS ORDERED: ePHEDrine 50 MG/ML 1 ML VIAL ONE (12:00)
[2022-03-17] MEDS ORDERED: NEOSTIGMINE 1 MG/ML 10 ML VIAL ONE (12:00)
[2022-03-17] MEDS ORDERED: LIDOCAINE 2% INJ 20 MG/ML (2 ML VIAL) ONE (12:00)
[2022-03-17] MEDS ORDERED: ROCURONIUM 10 MG/ML (5 ML VIAL) IV ONE (12:00)
[2022-03-17] MEDS ORDERED: GLYCOPYRROLATE 0.2 MG/ML 2 ML VIAL ONE (12:00)
[2022-03-17] MEDS ORDERED: MIDAZOLAM 2 MG/2 ML VIAL ONE (12:00)
[2022-03-17] MEDS ORDERED: BUPIVACAIN-EPI 0.25%-1:200,000 30 ML VIAL SQ ONE (12:41)
--- NOTE | 2022-03-17 13:04 | P.OP ---
Date of Procedure: 03/17/22 Procedure(s) Performed: PREOPERATIVE DIAGNOSIS: Recurrent incisional hernia POSTOPERATIVE DIAGNOSIS: Ventral hernia PROCEDURE: Ventral hernia repair with mesh SURGEON: Dr. Bazzi ANESTHESIA: General OPERATIVE PROCEDURE DETAILS: Patient placed on the operating table in the supine position. Abdomen was prepped and draped in usual sterile fashion. The previous incision in the upper midline was excised. Dissection through the subcutaneous tissues took place using electrocautery. The patient's previous fascial closure was identified by the previously placed 0 Ethibond sutures. Approximately 3 cm inferior to that there was a hernia sac seen. This hernia sac had some adjacent necrotic preperitoneal fat and all of this was excised. The defect was actually quite small measuring only 8 mm. This was widened slightly by debriding the edges of the hernia in the fascia. The free peritoneal space was dissected using blunt dissection and cautery. A 4.3 cm mesh was placed beneath the fascial defect and sutured in place using trans- fascial 0 Ethibond sutures. The defect was then closed horizontally using interrupted mattress sutures that were 0 Ethibond. The folding edge was sutured down using interrupted 0 Ethibond sutures as well. During our dissection there was noted to also be a small 3 mm defect superior to the prior hernia repair closure site. This was closed using interrupted 0 Ethibond sutures. No mesh was placed there. No additional defects were seen. The subcutaneous tissues were closed using 3-0 Vicryl sutures. The skin was closed using a running 4-0 Monocryl suture. Skin glue and sterile dressings were applied. HERNIA CHARACTERISTICS: Length: 8 mm Width: 8 mm Type: Ventral TYPE OF MESH USED: 4.3 cm ventral X LOCATION OF MESH: Sub-lay FIXATION: 0 Ethibond sutures PREOPERATIVE DISCUSSION ON SMOKING CESSASTION: Yes PREOPERATIVE DISCUSSION ON MORBID OBESITY: Yes PREOPERATIVE DISCUSSION ON APPROPRIATE USE OF NARCOTIC USE: Yes PREOPERATIVE EDUCATION: Multi Modal, Smoking Cessation and Weight Loss with BMI over 35. DISPOSITION: Stable to recovery room
[2022-03-17 13:22] VITALS: TEMP 97
[2022-03-17] MEDS ORDERED: SODIUM ZIRCONIUM CYCLOSILICATE 10 GM PACKET PO ONE (14:00)
[2022-03-17 15:25] VITALS: BP 119/77; PULSE 56; RESP 20
[2022-03-17] MEDS ORDERED: ACETAMINOPHEN TAB 325 MG TAB PO SCH (18:00)
== END 2022-03-17 16:15 | disposition home or self-care (01) ==
LOC: OR 09:34
PROVIDERS: ATTEND Surgery
DX: K43.9 Ventral hernia without obstruction or gangrene (principal); Z88.0 Allergy status to penicillin; F32.A Depression, unspecified; Z79.899 Other long term (current) drug therapy; Q61.3 Polycystic kidney, unspecified; I12.9 Hypertensive chronic kidney disease with stage 1 through stage 4 chronic kidney disease, or unspecified chronic kidney disease; N18.9 Chronic kidney disease, unspecified; Z99.2 Dependence on renal dialysis; Z87.891 Personal history of nicotine dependence
CPT/HCPCS: 82565; 84132; 84520; 85025; 88302; 49565; 49568; C1781; J2250; J1100; J2710; J0690; J2405; J3010; J2370; J2704; J1790; J1644; J2001

== ENCOUNTER → 2022-05-03 | Outpatient (CLI) | payer MEDICARE, BC ==
--- NOTE | 2022-05-03 16:09 | FL ---
EXAMINATION TYPE: FL barium swallow w video DATE OF EXAM: 05/03/2022 COMPARISON: NONE HISTORY: Dysphasia TECHNIQUE: Fluoroscopy. FINDINGS: Fluoroscopic guidance was provided for the procedure performed in conjunction with the [facility] pathology department. Please see complete report forthcoming from the Speech Pathology departmen t. Various consistencies from thin liquid to solids were administered. Fluoroscopy time 43 seconds. Number of images: 1 No aspiration or penetration was evident. No significant pooling was observed in the vallecula. There was normal propulsion of the bolus. Single images obtained over the distal esophagus. A large hiatal hernia is evident. Additional evalua tion with esophagram is recommended. IMPRESSION: 1. Normal modified barium swallow. 2. Large hiatal hernia. Additional evaluation with esophagram is recommended.
== END | disposition home or self-care (01) ==
LOC: RADFLMAIN 10:56
PROVIDERS: ATTEND Family Medicine
DX: K44.9 Diaphragmatic hernia without obstruction or gangrene (principal)
CPT/HCPCS: 74230

== ENCOUNTER → 2023-06-06 | Outpatient (CLI) | payer MEDICARE, BC ==
[2023-06-06 16:13] LABS: BUN/Creat Ratio 5.44 Ratio (12.00-20.00); Blood Urea Nitrogen 66.4 mg/dL (9.0-27.0); Calcium 9.7 mg/dL (8.7-10.3); Carbon Dioxide 22.7 mmol/L (21.6-31.8); Chloride 101 mmol/L (96-109); Glucose 92 mg/dL (70-110); Potassium 5.9 mmol/L (3.5-5.5); Sodium 139 mmol/L (135-145)
[2023-06-06 18:06] LABS: Basophils # (A) 0.06 X 10*3/uL (0.00-0.10); Basophils % (A) 1.1 %; Eosinophils # (A) 0.25 X 10*3/uL (0.04-0.35); Eosinophils % (A) 4.8 %; HCT 36.3 % (39.6-50.0); Lymphocytes # (A) 1.33 X 10*3/uL (0.90-5.00); Lymphocytes % (A) 25.3 %; MCH 31.9 pg (27.0-32.0); MCHC 33.1 d/dL (32.0-37.0); MCV 96.5 FL (80.0-97.0); Mean Platelet Volume 11.6 FL (9.5-12.2); Monocytes # (A) 0.62 X 10*3/uL (0.20-1.00); Monocytes % (A) 11.8 %; NRBC Per 100 WBC 0 X 10*3/uL (0.00-0.01); Neutrophils # (A) 2.97 X 10*3/uL (1.80-7.70); Neutrophils % (A) 56.6 %; Platelet Count 233 X 10*3/uL (140-440); RBC 3.76 X 10*6/uL (4.40-5.60); RDW 13.4 % (11.5-14.5); WBC 5.25 X 10*3/uL (4.50-10.00)
== END | disposition home or self-care (01) ==
LOC: LABPAT 12:04
PROVIDERS: ATTEND Urology
DX: Z01.812 Encounter for preprocedural laboratory examination (principal); Q61.2 Polycystic kidney, adult type
CPT/HCPCS: 36415; 80048; 85025

== ENCOUNTER → 2023-08-03 | Outpatient (CLI) | payer MEDICARE, BC ==
[2023-08-03 12:57] LABS: INR 0.9 (<1.2); Partial Thromboplastin Time 25.3 sec (22.0-30.0); Prothrombin Time 10.3 sec (10.0-12.5)
[2023-08-03 16:06] LABS: ALT 29 U/L (10-49); AST 29 U/L (14-35); Albumin 4.1 d/dL (3.8-4.9); Albumin/Globulin Ratio 1.71 Ratio (1.60-3.17); Alkaline Phosphatase 82 U/L (41-126); BUN/Creat Ratio 3.46 Ratio (12.00-20.00); Basophils # (A) 0.06 X 10*3/uL (0.00-0.10); Basophils % (A) 1.3 %; Bilirubin, Conjugated <0.20 mg/dL (0.20-0.40); Bilirubin,Unconjugated >0.30 mg/dL (0.20-1.00); Blood Urea Nitrogen 23.5 mg/dL (9.0-27.0); Carbon Dioxide 27.8 mmol/L (21.6-31.8); Chloride 100 mmol/L (96-109); Eosinophils # (A) 0.33 X 10*3/uL (0.04-0.35); GGT 12 U/L (0-73); Globulin 2.4 d/dL (1.6-3.3); Glucose 93 mg/dL (70-110); HCT 32.9 % (39.6-50.0); HGB 10.6 d/dL (13.0-17.0); LDH 239 U/L (120-246); Lymphocytes # (A) 1.15 X 10*3/uL (0.90-5.00); Lymphocytes % (A) 24.3 %; MCH 31.3 pg (27.0-32.0); MCHC 32.2 d/dL (32.0-37.0); MCV 97.1 FL (80.0-97.0); Mean Platelet Volume 10.3 FL (9.5-12.2); Monocytes # (A) 0.48 X 10*3/uL (0.20-1.00); Monocytes % (A) 10.1 %; NRBC Per 100 WBC 0 X 10*3/uL (0.00-0.01); Neutrophils % (A) 57.1 %; Platelet Count 259 X 10*3/uL (140-440); Potassium 5.2 mmol/L (3.5-5.5); Prostate Specific Antigen 1.56 ng/mL (0.000-3.500); RBC 3.39 X 10*6/uL (4.40-5.60); RDW 13.9 % (11.5-14.5); Sodium 141 mmol/L (135-145); Total Bilirubin 0.5 mg/dL (0.3-1.2); Total Protein 6.5 d/dL (6.2-8.2); WBC 4.73 X 10*3/uL (4.50-10.00)
[2023-08-03 17:19] LABS: Hepatitis B Core IgM Nonreactive; Hepatitis B Surface Antigen Nonreactive; Hepatitis C IgG Antibody Nonreactive
[2023-08-03 22:17] LABS: HIV 2 AB Non-Reactive (Non-Reactive); HIV AB P24 Non-Reactive (Non-Reactive); HIV P24 AG Non-Reactive (Non-Reactive)
== END | disposition home or self-care (01) ==
LOC: LABWHC1 10:48
PROVIDERS: ATTEND Transplant Surgery
DX: Z01.83 Encounter for blood typing (principal); Z13.228 Encounter for screening for other metabolic disorders; Z11.1 Encounter for screening for respiratory tuberculosis; Z11.4 Encounter for screening for human immunodeficiency virus [HIV]; Z12.5 Encounter for screening for malignant neoplasm of prostate; E11.22 Type 2 diabetes mellitus with diabetic chronic kidney disease; N18.4 Chronic kidney disease, stage 4 (severe); Z76.82 Awaiting organ transplant status; B19.10 Unspecified viral hepatitis B without hepatic coma; B19.20 Unspecified viral hepatitis C without hepatic coma; B27.90 Infectious mononucleosis, unspecified without complication; E11.65 Type 2 diabetes mellitus with hyperglycemia; D53.9 Nutritional anemia, unspecified; R79.1 Abnormal coagulation profile
CPT/HCPCS: 36415; 80053; 82248; 82977; 83615; 84153; 85025; 85610; 85730; 86480; 86644; 86704; 86705; 86706; 86780; 86803; 87340; 87390; 87522

== ENCOUNTER → 2023-12-31 | Outpatient (CLI) | payer MEDICARE, BC ==
--- NOTE | 2023-12-31 11:49 | XR ---
EXAMINATION TYPE: XR chest 2V DATE OF EXAM: 12/31/2023 11:18 AM CLINICAL INDICATION:Male, 53 years old with history of [id number] SOB,DYSPNEA; [facility] COMPARISON: Chest radiographs from 02/14/2021. TECHNIQUE: XR chest 2V Frontal and lateral views of the chest. FINDINGS: Lungs/Pleura: There is no evidence of pleural effusion, focal consolidation, or pneumothorax. Pulmonary vascularity: Unremarkable. Heart/mediastinum: Cardiomediastinal silhouette is unremarkable. Hiatal hernia projects over the hear t. Musculoskeletal: No acute osseous pathology. IMPRESSION: 1. No acute cardiopulmonary disease/process. 2. Hiatal hernia.
== END | disposition home or self-care (01) ==
LOC: RADXRYALE 11:05
PROVIDERS: ATTEND Family Medicine
DX: K44.9 Diaphragmatic hernia without obstruction or gangrene (principal); R06.02 Shortness of breath
CPT/HCPCS: 71046